=== PATIENT | female | born 1945 | race Two or more races ===

== ENCOUNTER 2020-03-27 11:27 | Outpatient (REF) | payer MEDICARE, SELFPAY ==
[2020-03-27 12:35] LABS: Alanine Aminotransferase 10 U/L (0-31); Albumin Level 4.5 g/dL (3.5-5.0); Alkaline Phosphatase 104 U/L (39-117); Anion Gap 12 (12-20); Aspartate Amino Transferase 15 U/L (5-31); Bilirubin Total 1.2 mg/dL (0.0-1.0); Blood Urea Nitrogen 14 mg/dL (9-16); Calcium 9.1 mg/dL (8.4-10.2); Carbon Dioxide 27 mmol/L (22-29); Chloride 106 mmol/L (96-108); Cholesterol 186 mg/dL; Estimated Glomerular Filt Rate > 60; Glucose Fasting 98 mg/dL (60-99); HDL Cholesterol 45 mg/dL; LDL Cholesterol Calculated 84 mg/dl; Potassium 4.5 mmol/l (3.3-5.1); Sodium 140 mmol/L (135-145); Total Protein 7.2 g/dL (6.5-8.0); Triglycerides 287 mg/dL
[2020-03-27 12:56] LABS: TSH reflex Free T4 1.31 mIU/mL (0.32-4.0)
== END 2020-03-27 11:28 | disposition home or self-care (01) ==
LOC: HO.LAB 11:27
PROVIDERS: PCP Internal Medicine; Visit Provider Internal Medicine
DX: E03.9 Hypothyroidism, unspecified (principal); E78.00 Pure hypercholesterolemia, unspecified
CPT/HCPCS: 80053; 80061; 84443

== ENCOUNTER 2020-05-02 12:32 | Outpatient (REF) | payer MEDICARE, SELFPAY ==
--- NOTE | 2020-05-02 12:35 | XR_ITS ---
EXAMINATION: CR X-RAY KNEE LEFT 2 VIEW, BILATERAL KNEE STANDING CLINICAL INFORMATION: Left knee pain. COMPARISON: 02/28/2020 left knee radiographs. . TECHNIQUE: PA and lateral views of the left knee as well as standing view of the bilateral knee FINDINGS: Mild medial femoral-tibial joint space narrowing is seen bilaterally. Minimal marginal osteophyte is seen at the left patellofemoral joint. A small curvilinear osseous density seen along the medial aspect of the left medial femoral condyle. There is no joint effusion. There is no acute fracture or dislocation. The soft tissues are unremarkable. XR/XR knee LT 2V IMPRESSION: 1. Mild degenerative joint changes suggesting osteoarthritis without acute abnormality.
--- NOTE | 2020-05-02 12:35 | XR_ITS ---
EXAMINATION: CR X-RAY KNEE LEFT 2 VIEW, BILATERAL KNEE STANDING CLINICAL INFORMATION: Left knee pain. COMPARISON: 02/28/2020 left knee radiographs. . TECHNIQUE: PA and lateral views of the left knee as well as standing view of the bilateral knee FINDINGS: Mild medial femoral-tibial joint space narrowing is seen bilaterally. Minimal marginal osteophyte is seen at the left patellofemoral joint. A small curvilinear osseous density seen along the medial aspect of the left medial femoral condyle. There is no joint effusion. There is no acute fracture or dislocation. The soft tissues are unremarkable. XR/XR knee standing BI IMPRESSION: 1. Mild degenerative joint changes suggesting osteoarthritis without acute abnormality.
== END 2020-05-02 12:33 | disposition home or self-care (01) ==
LOC: HO.HOSX 12:32
PROVIDERS: PCP Internal Medicine; Referring Provider Internal Medicine; Visit Provider Orthopaedic Surgery
DX: M25.562 Pain in left knee (principal)
CPT/HCPCS: 20610; 73560; 73565; 99202; J1100

== ENCOUNTER 2020-05-27 13:47 | Outpatient (REF) | payer MEDICARE, SELFPAY | END 2020-05-27 13:48 | disposition home or self-care (01) | LOC: HO.LAB 13:47 | PROVIDERS: Visit Provider Internal Medicine | DX: Z20.828 Contact with and (suspected) exposure to other viral communicable diseases (principal) | CPT/HCPCS: C9803; U0003 ==

== ENCOUNTER 2020-07-10 13:57 | Outpatient (REF) | payer MEDICARE, SELFPAY ==
--- NOTE | 2020-07-10 14:00 | MM_ITS ---
EXAMINATION: MM SCREENING DIGITAL BREAST TOMOSYNTHESIS, BILATERAL CLINICAL INFORMATION: Screening. Asymptomatic. The lifetime risk of breast cancer based on the Tyrer-Cuzick Model is 2%. COMPARISON: Mammography: 04/05/2019, 03/24/2018, 03/16/2017 TECHNIQUE: Digital breast tomosynthesis is performed in both the craniocaudal and mediolateral oblique views along with computer-aided detection (CAD). Synthesized 2D images are generated from the tomosynthesis. FINDINGS: There are scattered areas of fibroglandular density (ACR BI-RADS breast composition Category b). There are no significant masses, abnormal calcifications, or other abnormalities. Parenchymal pattern is similar to prior studies. No significant changes. MM/MM tomosynthesis screening BI IMPRESSION: No mammographic evidence of malignancy. ASSESSMENT: BI-RADS 1: Negative RECOMMENDATION: Routine annual mammography screening. This patient's information was entered into a reminder system with a target due date for their next mammogram.
== END 2020-07-10 13:58 | disposition home or self-care (01) ==
LOC: HO.MAMMO 13:57
PROVIDERS: PCP Internal Medicine; Visit Provider Internal Medicine
DX: Z12.31 Encounter for screening mammogram for malignant neoplasm of breast (principal)
CPT/HCPCS: 77063; 77067

== ENCOUNTER → 2020-07-31 11:03 | Outpatient (BNVA) | payer MEDICARE, SELFPAY | PROVIDERS: PCP Internal Medicine; Visit Provider Internal Medicine Gastroenterology | DX: Z76.89 Persons encountering health services in other specified circumstances (principal) | CPT/HCPCS: Q3014 ==

== ENCOUNTER 2020-08-26 12:58 | Outpatient (REF) | payer MEDICARE, SELFPAY ==
[2020-08-26 14:05] LABS: Alanine Aminotransferase 7 U/L (0-31); Albumin Level 4.4 g/dL (3.5-5.0); Alkaline Phosphatase 88 U/L (39-117); Anion Gap 12 (12-20); Aspartate Amino Transferase 16 U/L (5-31); Bilirubin Total 1.2 mg/dL (0.0-1.0); Blood Urea Nitrogen 15 mg/dL (9-16); Calcium 9.1 mg/dL (8.4-10.2); Carbon Dioxide 26 mmol/L (22-29); Chloride 107 mmol/L (96-108); Cholesterol 165 mg/dL; Estimated Glomerular Filt Rate 55; Glucose Fasting 99 mg/dL (60-99); HDL Cholesterol 51 mg/dL; LDL Cholesterol Calculated 85 mg/dl; Potassium 3.9 mmol/L (3.3-5.1); Sodium 141 mmol/L (135-145); Total Protein 6.9 g/dL (6.5-8.0); Triglycerides 145 mg/dL
[2020-08-26 14:26] LABS: TSH reflex Free T4 1.84 uIU/mL (0.32-4.0)
== END 2020-08-26 12:59 | disposition home or self-care (01) ==
LOC: HO.LAB 12:58
PROVIDERS: PCP Internal Medicine; Visit Provider Internal Medicine
DX: E78.2 Mixed hyperlipidemia (principal); E11.9 Type 2 diabetes mellitus without complications; E03.9 Hypothyroidism, unspecified
CPT/HCPCS: 36415; 80053; 80061; 84443

== ENCOUNTER 2020-09-15 11:06 | Outpatient (REF) | payer MEDICARE, SELFPAY ==
--- NOTE | ~2020-09-15 | US_ITS ---
EXAMINATION: US ABDOMEN COMPLETE CLINICAL INFORMATION: Upper abdominal pain. COMPARISON: CT abdomen pelvis 06/21/2019. TECHNIQUE: Real-time imaging of the abdominal viscera. FINDINGS: PANCREAS: The pancreatic head and body are unremarkable. The tail is obscured by gas. ABDOMINAL AORTA: The proximal, mid, and distal segments are normal in caliber. INFERIOR VENA CAVA: Visualized portions are normal. LIVER: The liver is normal in size. The liver contour is normal. There is diffuse mildly increased liver parenchymal echogenicity, consistent with hepatic steatosis. No focal hepatic lesion. There is no intrahepatic biliary duct dilatation seen. GALLBLADDER: Surgically absent. COMMON BILE DUCT: Prominent in caliber measuring 1.0 cm in diameter. This can be seen in the postcholecystectomy setting. RIGHT KIDNEY: Parapelvic cysts versus renal pelvic fullness. No hydronephrosis or renal calculi. The kidney measures 9.6 cm in maximum dimension. LEFT KIDNEY: Parapelvic cysts are present. No hydronephrosis or renal calculi. The kidney measures 9.7 cm in maximum dimension. SPLEEN: Normal. The spleen measures 9.4 cm in maximum dimension. FREE FLUID: None. US/US abdomen complete IMPRESSION: Mild hepatic steatosis. Parapelvic renal cysts.
== END 2020-09-15 11:07 | disposition home or self-care (01) ==
LOC: HO.US 11:06
PROVIDERS: Visit Provider Internal Medicine Gastroenterology
DX: R10.10 Upper abdominal pain, unspecified (principal); R14.0 Abdominal distension (gaseous)
CPT/HCPCS: 76700

== ENCOUNTER → 2020-09-19 12:05 | Outpatient (BNVA) | payer MEDICARE, SELFPAY | PROVIDERS: PCP Internal Medicine; Visit Provider Internal Medicine Gastroenterology | DX: Z13.89 Encounter for screening for other disorder (principal) | CPT/HCPCS: Q3014 ==

== ENCOUNTER 2021-01-07 11:03 | Outpatient (REF) | payer MEDICARE, SELFPAY ==
[2021-01-07 13:21] LABS: Alanine Aminotransferase 8 U/L (0-31); Albumin Level 4.4 g/dL (3.5-5.0); Alkaline Phosphatase 97 U/L (39-117); Anion Gap 13 (12-20); Aspartate Amino Transferase 18 U/L (5-31); Bilirubin Total 1.1 mg/dL (0.0-1.0); Blood Urea Nitrogen 16 mg/dL (9-16); Calcium 9.5 mg/dL (8.4-10.2); Carbon Dioxide 25 mmol/L (22-29); Chloride 106 mmol/L (96-108); Cholesterol 173 mg/dL; Estimated Glomerular Filt Rate 56; Glucose Fasting 93 mg/dL (60-99); HDL Cholesterol 54 mg/dL; LDL Cholesterol Calculated 94 mg/dl; Potassium 4.1 mmol/L (3.3-5.1); Sodium 140 mmol/L (135-145); Total Protein 7.1 g/dL (6.5-8.0); Triglycerides 128 mg/dL
[2021-01-07 13:43] LABS: Thyroid Stimulating Hormone 2.64 uIU/mL (0.32-4.0)
[2021-01-11 13:31] LABS: Levetiracetam Keppra <1.0 mcg/mL (12.0-46.0)
== END 2021-01-07 11:04 | disposition home or self-care (01) ==
LOC: HO.LAB 11:03
PROVIDERS: PCP Internal Medicine; Visit Provider Internal Medicine
DX: E03.9 Hypothyroidism, unspecified (principal); E78.2 Mixed hyperlipidemia; R56.9 Unspecified convulsions; E78.5 Hyperlipidemia, unspecified
CPT/HCPCS: 36415; 80053; 80061; 80177; 84443

== ENCOUNTER 2021-01-07 11:06 | Outpatient (REF) | payer MEDICARE, SELFPAY | END 2021-01-07 11:07 | disposition home or self-care (01) | LOC: HO.LAB 11:06 | PROVIDERS: PCP Internal Medicine; Visit Provider Internal Medicine | DX: Z20.822 Contact with and (suspected) exposure to COVID-19 (principal) | CPT/HCPCS: C9803; U0003; U0005 ==

== ENCOUNTER 2021-01-08 12:51 | Outpatient (REF) | payer MEDICARE, SELFPAY ==
--- NOTE | ~2021-01-08 | XR_ITS ---
EXAMINATION: XR CHEST CLINICAL INFORMATION: Cough COMPARISON: Previous chest x-agustin most recent June 2019 TECHNIQUE: 2 views of the chest were obtained. FINDINGS: The cardiac and mediastinal contours are normal. The lungs are clear. There is no pleural effusion or pneumothorax. There are degenerative changes of the spine and mild curvature to the right. XR/XR chest 2V IMPRESSION: No evidence for acute disease in the chest.
== END 2021-01-08 12:52 | disposition home or self-care (01) ==
LOC: HO.XRAY 12:51
PROVIDERS: PCP Internal Medicine; Visit Provider Nurse Practitioner Family
DX: R05 Cough (principal)
CPT/HCPCS: 71046

== ENCOUNTER → 2021-03-26 13:56 | Outpatient (BNVA) | payer MEDICARE, SELFPAY | PROVIDERS: PCP Internal Medicine; Visit Provider Internal Medicine Gastroenterology | DX: K21.9 Gastro-esophageal reflux disease without esophagitis (principal); K59.00 Constipation, unspecified; K76.0 Fatty (change of) liver, not elsewhere classified; R14.0 Abdominal distension (gaseous); R10.10 Upper abdominal pain, unspecified; I10 Essential (primary) hypertension; E78.5 Hyperlipidemia, unspecified; Z90.49 Acquired absence of other specified parts of digestive tract; Z88.6 Allergy status to analgesic agent; Z88.1 Allergy status to other antibiotic agents; Z88.2 Allergy status to sulfonamides; Z88.8 Allergy status to other drugs, medicaments and biological substances; Z79.899 Other long term (current) drug therapy | CPT/HCPCS: Q3014 ==

== ENCOUNTER 2021-05-25 09:53 | Outpatient (REF) | payer MEDICARE, SELFPAY ==
[2021-05-25 10:12] LABS: MANUAL DIFF FLAG NO
[2021-05-25 10:39] LABS: Basophils Percent Auto 0.6 % (0-2); Eosinophils Absolute Auto 0.2 X10*3/uL (0.0-0.4); Eosinophils Percent Auto 2.1 % (0-4); Hematocrit 36.1 % (37.0-47.0); Hemoglobin 11.6 g/dl (12.0-16.0); Imm Gran Abs Auto 0.01 X10*3/uL (0.00-0.03); Imm Gran Pct Auto 0.1 % (0.0-0.4); Lymphocytes Absolute Auto 2.7 X10*3/uL (1.2-4.9); Lymphocytes Percent Auto 38.3 % (20-40); Mean Corpuscular HGB Conc 32.1 g/dl (31.0-35.0); Mean Corpuscular Hemoglobin 30.1 pg (27.0-33.0); Mean Corpuscular Volume 93.5 fL (80.0-98.0); Mean Platelet Volume 13.5 fL (9.4-12.3); Monocytes Absolute Auto 0.4 X10*3/uL (0.1-1.2); Monocytes Percent Auto 5.7 % (2-11); Neutrophils Absolute Auto 3.8 x10*3/uL (2.0-8.3); Neutrophils Percent Auto 53.2 % (45-73); Platelet Count 157 X10*3/uL (160-400); Red Blood Count 3.86 X10*6/uL (4.20-5.50); Red Cell Distribution Width 12.9 % (11.0-16.0); White Blood Count 7.1 X10*3/uL (4.8-10.8)
[2021-05-25 10:43] LABS: INTERNATIONAL NORM RATIO 1.1 (0.9-1.1); Prothrombin Time 12.1 SEC (9.9-13.0)
[2021-05-25 11:02] LABS: Alanine Aminotransferase 11 U/L (0-31); Albumin Level 4.3 g/dL (3.5-5.0); Alkaline Phosphatase 79 U/L (39-117); Anion Gap 14 (12-20); Aspartate Amino Transferase 18 U/L (5-31); Bilirubin Total 0.7 mg/dL (0.0-1.0); Blood Urea Nitrogen 20 mg/dL (9-16); Calcium 9.5 mg/dL (8.4-10.2); Carbon Dioxide 22 mmol/L (22-29); Chloride 109 mmol/L (96-108); Cholesterol 170 mg/dL; Estimated Glomerular Filt Rate 49; Glucose Fasting 101 mg/dL (60-99); HDL Cholesterol 54 mg/dL; LDL Cholesterol Calculated 94 mg/dl; Potassium 4.2 mmol/L (3.3-5.1); Sodium 141 mmol/L (135-145); Triglycerides 114 mg/dL
[2021-05-25 11:25] LABS: Thyroid Stimulating Hormone 1.28 uIU/mL (0.32-4.0)
[2021-05-29 17:50] LABS: FIB-ALT 9 U/L (6-29); FIB-Alpha-2-Macroglobulin 171 mg/dL (106-279); FIB-Apolipoprotein A1 171 mg/dL (101-198); FIB-GGT 19 U/L (3-65); FIB-Haptoglobin 141 mg/dL (43-212); FIB-Total Bilirubin 0.7 mg/dL (0.2-1.2); Liver Fibrosis Stage F0; Nec Inflam Act Grade A0; Nec Inflam Act Score 0.02
== END 2021-05-25 09:54 | disposition home or self-care (01) ==
LOC: HO.LAB 09:53
PROVIDERS: Absent Provider Internal Medicine Gastroenterology; PCP Internal Medicine; Visit Provider Internal Medicine
DX: E78.2 Mixed hyperlipidemia (principal); E78.5 Hyperlipidemia, unspecified; E03.9 Hypothyroidism, unspecified; K76.0 Fatty (change of) liver, not elsewhere classified
CPT/HCPCS: 36415; 80053; 80061; 81596; 84443; 85025; 85610

== ENCOUNTER → 2021-06-04 12:40 | Outpatient (BNV) | payer MEDICARE, OTHER, SELFPAY | PROVIDERS: PCP Internal Medicine; Referring Provider Internal Medicine; Visit Provider Internal Medicine Medical Oncology | DX: D64.9 Anemia, unspecified (principal) | CPT/HCPCS: 99203; 99213 ==

== ENCOUNTER 2021-08-06 09:37 | Outpatient (REF) | payer MEDICARE, SELFPAY ==
--- NOTE | ~2021-08-06 | MM_ITS ---
EXAMINATION: MM SCREENING DIGITAL BREAST TOMOSYNTHESIS, BILATERAL CLINICAL INFORMATION: Screening. Asymptomatic. The lifetime risk of breast cancer based on the Tyrer-Cuzick Model is 1.8%. COMPARISON: Mammography: July 10, 2020 and studies dating back to January 09, 2014 TECHNIQUE: Digital breast tomosynthesis is performed in both the craniocaudal and mediolateral oblique views along with computer-aided detection (CAD). Synthesized 2D images are generated from the tomosynthesis. FINDINGS: There are scattered areas of fibroglandular density (ACR BI-RADS breast composition Category b). There are no significant masses, abnormal calcifications, or other abnormalities. MM/MM tomosynthesis screening BI IMPRESSION: There are no significant changes from prior study. ASSESSMENT: BI-RADS 1: Negative RECOMMENDATION: Routine annual mammography screening. This patient's information was entered into a reminder system with a target due date for their next mammogram.
== END 2021-08-06 09:38 | disposition home or self-care (01) ==
LOC: HO.MAMMO 09:37
PROVIDERS: PCP Internal Medicine; Visit Provider Internal Medicine
DX: Z12.31 Encounter for screening mammogram for malignant neoplasm of breast (principal)
CPT/HCPCS: 77063; 77067

== ENCOUNTER 2021-09-23 09:18 | Outpatient (REF) | payer OTHER, SELFPAY ==
[2021-09-23 09:41] LABS: MANUAL DIFF FLAG NO
[2021-09-23 10:47] LABS: Basophils Percent Auto 0.5 % (0-2); Eosinophils Absolute Auto 0.1 X10*3/uL (0.0-0.4); Eosinophils Percent Auto 1.3 % (0-4); Hematocrit 36.3 % (37.0-47.0); Hemoglobin 11.4 g/dl (12.0-16.0); Imm Gran Abs Auto 0.02 X10*3/uL (0.00-0.03); Imm Gran Pct Auto 0.3 % (0.0-0.4); Lymphocytes Absolute Auto 2.6 X10*3/uL (1.2-4.9); Lymphocytes Percent Auto 43.1 % (20-40); Mean Corpuscular HGB Conc 31.4 g/dl (31.0-35.0); Mean Corpuscular Hemoglobin 29.5 pg (27.0-33.0); Mean Corpuscular Volume 93.8 fL (80.0-98.0); Mean Platelet Volume 13.6 fL (9.4-12.3); Monocytes Absolute Auto 0.4 X10*3/uL (0.1-1.2); Monocytes Percent Auto 6.6 % (2-11); Neutrophils Absolute Auto 2.9 x10*3/uL (2.0-8.3); Neutrophils Percent Auto 48.2 % (45-73); Platelet Count 157 X10*3/uL (160-400); Red Blood Count 3.87 X10*6/uL (4.20-5.50); White Blood Count 6.1 X10*3/uL (4.8-10.8)
[2021-09-23 11:10] LABS: Alanine Aminotransferase 7 U/L (0-31); Albumin Level 4.1 g/dL (3.5-5.0); Alkaline Phosphatase 80 U/L (39-117); Anion Gap 11 (12-20); Aspartate Amino Transferase 14 U/L (5-31); Bilirubin Total 0.9 mg/dL (0.0-1.0); Blood Urea Nitrogen 16 mg/dL (9-16); Calcium 9.6 mg/dL (8.4-10.2); Carbon Dioxide 26 mmol/L (22-29); Chloride 108 mmol/L (96-108); Cholesterol 147 mg/dL; Estimated Glomerular Filt Rate > 60; Glucose Fasting 94 mg/dL (60-99); HDL Cholesterol 46 mg/dL; LDL Cholesterol Calculated 78 mg/dl; Potassium 4.4 mmol/L (3.3-5.1); Sodium 141 mmol/L (135-145); Total Protein 6.6 g/dL (6.5-8.0); Triglycerides 115 mg/dL
[2021-09-23 11:35] LABS: TSH reflex Free T4 (Prenatal) 1.42 uIU/mL (0.32-4.0)
[2021-09-23 11:53] LABS: Folate > 20.0 ng/mL (> or = 4.0); Vitamin B12 416 pg/mL (200-900)
[2021-09-28 05:46] LABS: Vitamin D 25-OH, D2 <4 ng/mL; Vitamin D 25-OH, D3 33 ng/mL; Vitamin D 25-OH, Total 33 ng/mL (30-100)
== END 2021-09-23 09:19 | disposition home or self-care (01) ==
LOC: HO.LAB 09:18
PROVIDERS: PCP Internal Medicine; Visit Provider Internal Medicine
DX: I10 Essential (primary) hypertension (principal); E03.9 Hypothyroidism, unspecified; E78.5 Hyperlipidemia, unspecified; D64.9 Anemia, unspecified; E55.9 Vitamin D deficiency, unspecified; R20.0 Anesthesia of skin; R20.2 Paresthesia of skin
CPT/HCPCS: 36415; 80053; 80061; 82306; 82607; 82746; 85025

== ENCOUNTER 2021-10-08 13:38 | Outpatient (REF) | payer OTHER, SELFPAY ==
--- NOTE | ~2021-10-08 | MM_ITS ---
EXAMINATION: BONE DENSITOMETRY CLINICAL INDICATION: Asymptomatic menopausal state. COMPARISON: Previous BD dated 04/26/2014 and baseline BD dated 07/08/2008. TECHNIQUE: Using a [employer] DXA System (software version: 13.1) manufactured by [employer], dual-energy x-ray absorptiometry was performed of the lumbar spine and left hip. The images are of good technical quality. Summary results are attached. FINDINGS: AP SPINE L1-L4: Current: BMD 1.236 g/cm2, Z-score 2.0, T-score 0.5, normal, 2.9% increase from previous, 5.6% increase from baseline (<5% change is not significant). Prior: BMD 1.201 g/cm2. Baseline: BMD 1.170 g/cm2. LEFT FEMUR, NECK: Current: BMD 0.952 g/cm2, Z-score 1.2, T-score -0.6, normal. Prior: BMD 1.022 g/cm2. Baseline: BMD 1.129 g/cm2. LEFT FEMUR, TOTAL: Current: BMD 1.197 g/cm2, Z-score 3.2, T-score 1.5, normal, 3.7% decrease from previous, 5.5% decrease from baseline (<5% change is not significant). Prior: BMD 1.243 g/cm2. Baseline: BMD 1.267 g/cm2. IDENTIFIED RISK FACTORS: Osteoporosis. Early menopause, secondary osteoporosis, hysterectomy, bilateral oophorectomy. HISTORY OF FRACTURE: None listed. MEDICATIONS: None listed. MM/XR DEXA axial skeleton IMPRESSION: 1. DIAGNOSIS: Normal bone density based on the lowest T-score value of -0.6 in the femoral neck applying World Health Organization criteria. 2. 10-YEAR FRACTURE RISK PREDICTION, FRAX: According to the guidelines, FRAX calculation should only be performed on patients in the osteopenia bone density category. Therefore, FRAX was not performed on this patient. 3. Treatment Recommendations: NOF guidelines recommend consideration for treatment in postmenopausal women and men age 50 and older presenting with the following: -A hip or vertebral (clinical or morphometric) fracture. -T-score less than or equal to -2.5 at the femoral neck or spine after appropriate evaluation to exclude secondary causes. -Low bone mass at the hip or spine and a 10-year fracture probability by FRAX of greater than or equal to 3% for hip fracture or greater than or equal to 20% for major osteoporotic fracture based on the [place] adapted WHO algorithm. 4. Other Recommendations: All treatment decisions require clinical judgment and consideration of individual patient factors, including patient preferences, comorbidities, previous drug use, risk factors not captured in the FRAX model (e.g. frailty, falls, vitamin D deficiency, increased bone turnover, interval significant decline in bone density) and possible under or overestimation of fracture risk by FRAX. FUTURE SCAN RECOMMENDATION: People with diagnosed cases of osteoporosis or at high risk for fracture should have regular bone mineral density tests. For patients eligible for Medicare, routine testing is allowed once every 2 years. The testing frequency can be increased to one year for patients who have rapidly progressing disease, those who are receiving or discontinuing medical therapy to restore bone mass, or have additional risk factors.
== END 2021-10-08 13:39 | disposition home or self-care (01) ==
LOC: HO.MAMMO 13:38
PROVIDERS: Visit Provider Internal Medicine
DX: Z13.820 Encounter for screening for osteoporosis (principal); Z78.0 Asymptomatic menopausal state; K21.9 Gastro-esophageal reflux disease without esophagitis; K76.0 Fatty (change of) liver, not elsewhere classified; K59.09 Other constipation; R14.0 Abdominal distension (gaseous); R10.10 Upper abdominal pain, unspecified
CPT/HCPCS: 77080; 99212

== ENCOUNTER 2022-03-22 09:37 | Outpatient (REF) | payer OTHER, SELFPAY ==
[2022-03-22 10:31] LABS: Alanine Aminotransferase 9 U/L (0-31); Albumin Level 4.4 g/dL (3.5-5.0); Alkaline Phosphatase 84 U/L (39-117); Anion Gap 13 (12-20); Aspartate Amino Transferase 16 U/L (5-31); Blood Urea Nitrogen 21 mg/dL (9-16); Calcium 9.3 mg/dL (8.4-10.2); Carbon Dioxide 24 mmol/L (22-29); Chloride 107 mmol/L (96-108); Cholesterol 179 mg/dL; Estimated Glomerular Filt Rate > 60; Glucose Fasting 101 mg/dL (60-99); HDL Cholesterol 55 mg/dL; LDL Cholesterol Calculated 94 mg/dl; Potassium 4.3 mmol/L (3.3-5.1); Sodium 140 mmol/L (135-145); Triglycerides 154 mg/dL
[2022-03-22 10:51] LABS: Thyroid Stimulating Hormone 1.37 uIU/mL (0.32-4.0)
== END 2022-03-22 09:38 | disposition home or self-care (01) ==
LOC: HO.LAB 09:37
PROVIDERS: PCP Internal Medicine; Visit Provider Internal Medicine
DX: R20.0 Anesthesia of skin (principal); R20.2 Paresthesia of skin; E03.9 Hypothyroidism, unspecified; E78.5 Hyperlipidemia, unspecified
CPT/HCPCS: 36415; 80053; 80061; 84443

== ENCOUNTER 2022-04-08 11:38 | Outpatient (AMB) | payer OTHER, SELFPAY ==
--- NOTE | 2022-04-08 11:40 | A.OFFVIS_ITS ---
Intake Intake Visit Reasons: 6 mnth f/u FU of GERD and fatty liver Intake Note: Patient follow up for GERD and fatty liver. Patient cc: acid reflex on and off, denies any other GI issues. 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 Research Scientist Required: Yes Allergies clarithromycin [CLARITHROMYCIN] Allergy (Intermediate, Verified 03/29/23 11:15) Rash hydrochlorothiazide [HYDROCHLOROTHIAZIDE] Allergy (Intermediate, Verified 03/29/23 11:15) Rash Sulfa (Sulfonamide Antibiotics) Allergy (Intermediate, Verified 03/29/23 11:15) Rash tramadol [TRAMADOL] Allergy (Intermediate, Verified 03/29/23 11:15) Rash, vomiting moexipril [From Univasc] Allergy (Mild, Verified 03/29/23 11:15) lip deviation valsartan [From Diovan] Allergy (Mild, Verified 03/29/23 11:15) Rash acetaminophen [From Vicodin] Adverse Reaction (Intermediate, Verified 03/29/23 11:15) Vomiting hydrocodone [From Vicodin] Adverse Reaction (Intermediate, Verified 03/29/23 11:15) Vomiting oxycodone [From Percocet] Adverse Reaction (Mild, Verified 03/29/23 11:15) vomiting Medication List - Last Reconciled 04/08/22 by Nazia Vásquez MD acetaminophen 500 mg PO Q6H PRN 30 days atorvastatin 10 mg PO DAILY fenofibrate 54 mg PO DAILY fluticasone propionate 50 mcg/actuation 1 spray intranasal BID 30 days levothyroxine 50 mcg PO DAILY 90 days losartan 100 mg PO DAILY pantoprazole 40 mg PO DAILY 90 days polyethylene glycol 3350 17 grams PO DAILY verapamil ER 240 mg PO DAILY 90 days HPI 6 mnth f/u FU of GERD and fatty liver HPI Details TELEMEDICINE VISIT FOR THIS 76-YEAR-OLD SYRIAC-SPEAKING FEMALE FOR FOLLOW-UP OF EPIGASTRIC PAIN. PMX:?Arthritis, Hypertension, Hyperlipidemia, Heart problems, Diverticulosis, Gastritis, thyroid disease ? SURGICAL HISTORY: ATILIO with BSO, cholecystectomy lap ?[facility] LABS:?07/08/19 REVIEWED NORMAL CBC WITH PLATELET COUNT OF 137, INR OF 1, ? NORMAL LFTS MILD INCREASE IN BILIRUBIN OF 1.4 ? VITAMIN B12 WAS 168 AND 2012. ?IMAGING STUDIES: 09/15/20 ABDOMINAL ULTRASOUND SHOWED:? LIVER: The liver is normal in size. The liver contour is normal. There is diffuse mildly increased liver parenchymal echogenicity, consistent with hepatic steatosis.? No focal hepatic lesion. There is no intrahepatic biliary duct dilatation seen. GALLBLADDER: Surgically absent. COMMON BILE DUCT: Prominent in caliber measuring 1.0 cm in diameter. This can be seen in the postcholecystectomy setting. RIGHT KIDNEY: Parapelvic cysts versus renal pelvic fullness. No hydronephrosis or renal calculi. The kidney measures 9.6 cm in maximum dimension. LEFT KIDNEY: Parapelvic cysts are present. No hydronephrosis or renal calculi. The kidney measures 9.7 cm in maximum dimension. SPLEEN: Normal. The spleen measures 9.4 cm in maximum dimension. ?06/22/[address] SCAN SHOWED: ? IMPRESSION: ? Diverticulosis. No evidence of diverticulitis. Bilateral renal peripelvic cysts ?05/01 UGI SHOWED: ? There is a small hiatal hernia with moderate gastroesophageal reflux into the upper esophagus. ? Otherwise, the course, caliber and peristalsis of stomach, duodenal ? bulb and the sweep is normal. The mucosal pattern of stomach, duodenal ? bulb and CBD is normal except for a small round filling defect in the ? third segment duodenum on several last images.. Question prominent ? Eboni's gland, mass or polyp. Incidental note is made of previous cholecystectomy. ?ENDOSCOPIC STUDIES: 09/07/19 EGD AND COLONOSCOPY SHOWED: ? ESOPHAGUS: Small hiatus hernia and focal mild esophagitis ? STOMACH: Gastritis and gastric polyps ? Colonoscopy Findings: ? No polyps were detected ? Moderate to severe diverticulosis seen in the left colon ? Small hemorrhoids on retroflexed exam. ? Plan: ? Await pathology results ? Continue present medications ? Repeat Colonoscopy in 10 years if pt remains in stable health. ? Above findings were reviewed with the patient and GERD and diverticulosis handouts ? were provided. ? A. Small bowel, biopsy: Small intestinal mucosa within normal limits. ? B. Stomach, biopsy: Antral-type mucosa with moderate chronic inactive inflammation; no ? Helicobacter organisms seen. ? C. Stomach polyp: Fundic gland polyp with background mild chronic inactive inflammation; no Helicobacter organisms seen. ?TODAY'S VISIT ?TELEPHONE EMERGENCY VEHICLE DISPATCHERDi # [id number] Patient follow up for GERD and fatty liver. Patient cc: acid reflex on and off, denies any other GI issues. Lab results were reviewed with the patient. Denies abdominal pain or heartburn. ?PAST VISIT: Abd US results were reviewed with the patient. ? Denies any abd pain at present. Had abdominal pain a week ago after eating a buffet - took TUMS and pain went away. ?Abd pain is much better and sometimes she gets it and sometimes she does not. ? Can be once a week to once a month and can last all day or a few hrs. ? Notes a little bit of heartburn - 2-3 times a week - sometimes day or night. ? Avoids spicy foods. ? Constipation improved with medications - Senna with colace. ? EGD and Colonoscopy and bx results were reviewed with the patient. ? Continues to have pain in her throat. ? Called her PCP and was prescribed PCN and the sore throat is getting better. ? Taking Senna three times a week alternating with Miralax and continuing to have constipation - advised to take Senna daily and take Miralax every other day. ? Pain is intermittent 8/10 in intensity and feels like a pressure. ? Pain radiates to the back and lower extremities. ? Pain is constant and varies in intensity. ? Unable to identify any precipitating factors. ? Thinks its her thyroid medication which is causing the pain. ? Pain gets a little better after a BM or passing gas. ? Notes chills and denies fever, ? Complains of decreased appetite and weight loss of 7 lbs since 03/01. ? Has been eating less and notes heartburn, early satiety, nausea and occasional vomiting, gas and bloating. ? Vomiting can be bilious. ? Denies dysphagia. ? Patient denies change in bowel habits, black stools or rectal bleeding. ? Chronic constipation and has a BM every other day if she takes medication for constipation ? Denies past problems with anesthesia or sleep apnea. ? Snores loudly. ? Denies major heart or lung problems ? Denies use of NSAIDS or blood thinners. STOPPED TAKING PLAVIX A YEAR AGO ? FAMILY HISTORY: Denies known FH of colon polyps, colon cancer or GI? PFSH Medical History Cataracts, bilateral Chronic GERD Postmenopausal Numbness and tingling Anemia Productive cough Polyarthralgia Mixed hyperlipidemia Vertigo Essential hypertension Hypothyroidism Right hip pain Left hip pain Hypertension Chronic pain Surgical History Hx of eye surgery Status post laser ablation of incompetent vein History of esophagogastroduodenoscopy (EGD) Hx of colonoscopy History of total abdominal hysterectomy and bilateral salpingo-oophorectomy History of cholecystectomy Family History Father Alzheimer disease Mother Stroke Other No family history of cancer Social History Household Members: None Housing: Apartment Are you a primary career developer to a significant other at home: No Do you presently have visiting nurse or other home services: No Alcohol intake: never Patient Tobacco Use Status: Never used Tobacco e-Cigarette/Vaping Use: Never Used Second Hand Smoke Exposure: No service: No Current occupational status: retired Cognitive needs: No Hearing needs: No Vision needs: Yes Review of Systems Const All systems reviewed & are unremarkable except as noted in HPI and below Assessment & Plan Assessment & Plan (1) Chronic GERD: Code(s): K21.9 - Gastro-esophageal reflux disease without esophagitis (2) Anemia: Code(s): D64.9 - Anemia, unspecified (3) NAFL (nonalcoholic fatty liver): Code(s): K76.0 - Fatty (change of) liver, not elsewhere classified (4) Colon cancer screening: Comment: 08/2019 No polyps were detected on colonoscopy. Repeat Colonoscopy can be considered in 10 years if patient remains in stable he alth. Code(s): Z12.11 - Encounter for screening for malignant neoplasm of colon (5) Abdominal bloating: Code(s): R14.0 - Abdominal distension (gaseous) (6) Chronic constipation: Comment: Continue Miralax prn Code(s): K59.09 - Other constipation (7) Upper abdominal pain: Code(s): R10.10 - Upper abdominal pain, unspecified Plan 76 year old Vietnamese-speaking female with Arthritis, Hypertension, Hyperlipidemia, Heart problems, Diverticulosis, Gastritis seen for evaluation of abdominal pain with bloating and chronic constipation. Upper GI showed mild reflux and a small round filling defect in the third segment duodenum on several last images raising concern for a polyp, mass or prominent Eboni's gland. Patient was advised to start famotidine for GERD and abdominal pain and use senna for constipation. 08/30 EGD showed a small hiatal hernia with focal esophagitis, gastritis and multiple hyperplastic gastric polyps. No nodule or polyp was visualized in the duodenum. 09/2020 Abd US showed?mild hepatic steatosis and parapelvic renal cysts?(she is > 20 yrs status post lap cathleen). Pt was advised to schedule a follow-up appointment in 5 months (for FU of GERD, fatty liver, abdominal pain and constipation) Orders: Orders Liver Fibrosis Pnl 3 Months K76.0 - Fatty (change of) liver, not elsewhere classified Complete Blood Count no Diff 3 Months K76.0 - Fatty (change of) liver, not elsewhere classified Prothrombin Time INR 3 Months K76.0 - Fatty (change of) liver, not elsewhere classified Telehealth Telehealth Location of provider rendering services: practice address Location of patient: address on file Patient Identification confirmed using: Name, : Yes Telehealth method: voice only Patient verbally consented to treatment: Yes Patient verbally consented to billing insurance company: Yes Patient informed of any privacy concerns related to visit: Yes Minutes spent on Phone/Video with Pt.: 10 Coding Level of Care Code Tele Est Pt Level 3 (76356) Diagnoses Chronic GERD K21.9 Anemia D64.9 NAFL (nonalcoholic fatty liver) K76.0 Colon cancer screening Z12.11 Abdominal bloating R14.0 Chronic constipation K59.09 Upper abdominal pain R10.10 Time Spent (min) 10
== END 2022-04-08 14:15 | disposition home or self-care (01) ==
LOC: HO.HGI 11:38
PROVIDERS: PCP Internal Medicine; Visit Provider Internal Medicine Gastroenterology
DX: K21.9 Gastro-esophageal reflux disease without esophagitis (principal); D64.9 Anemia, unspecified; K76.0 Fatty (change of) liver, not elsewhere classified; Z12.11 Encounter for screening for malignant neoplasm of colon; R14.0 Abdominal distension (gaseous); K59.09 Other constipation; R10.10 Upper abdominal pain, unspecified
CPT/HCPCS: 99441

== ENCOUNTER 2022-08-09 09:41 | Outpatient (REF) | payer OTHER, SELFPAY ==
--- NOTE | ~2022-08-09 | MM_ITS ---
EXAMINATION: MM SCREENING DIGITAL BREAST TOMOSYNTHESIS, BILATERAL CLINICAL INFORMATION: Screening. Asymptomatic. The lifetime risk of breast cancer based on the Tyrer-Cuzick Model is 1.2%. COMPARISON: Mammography: August 06, 2021 and studies dating back to March 03, 2016 TECHNIQUE: Digital breast tomosynthesis is performed in both the craniocaudal and mediolateral oblique views along with computer-aided detection (CAD). Synthesized 2D images are generated from the tomosynthesis. FINDINGS: There are scattered areas of fibroglandular density (ACR BI-RADS breast composition Category b). There are no significant masses, abnormal calcifications, or other abnormalities. MM/MM tomosynthesis screening BI IMPRESSION: No significant changes from prior exam. ASSESSMENT: BI-RADS 1: Negative RECOMMENDATION: Routine annual mammography screening. This patient's information was entered into a reminder system with a target due date for their next mammogram.
== END 2022-08-09 09:42 | disposition home or self-care (01) ==
LOC: HO.MAMMO 09:41
PROVIDERS: Visit Provider Internal Medicine
DX: Z12.31 Encounter for screening mammogram for malignant neoplasm of breast (principal)
CPT/HCPCS: 77063; 77067

== ENCOUNTER 2022-10-08 09:05 | Outpatient (REF) | payer OTHER, SELFPAY ==
--- NOTE | 2022-10-08 09:19 | ECG_ITS ---
Test Reason : htn Blood Pressure : / mmHG Vent. Rate : 061 BPM Atrial Rate : 061 BPM P-R Int : 150 ms QRS Dur : 090 ms QT Int : 430 ms P-R-T Axes : 019 -03 034 degrees QTc Int : 432 ms Normal sinus rhythm with sinus arrhythmia Normal ECG When compared with ECG of 08-JUL-2019 10:46, No significant change was found Referred By: Hayde Marvin Electronically Signed By:Flynn Watkins
[2022-10-08 11:07] LABS: Alanine Aminotransferase 12 U/L (0-31); Albumin Level 4.1 g/dL (3.5-5.0); Alkaline Phosphatase 84 U/L (39-117); Anion Gap 12 (12-20); Aspartate Amino Transferase 19 U/L (5-31); Bilirubin Total 0.7 mg/dL (0.0-1.0); Blood Urea Nitrogen 21 mg/dL (9-16); Calcium 9.1 mg/dL (8.4-10.2); Carbon Dioxide 26 mmol/L (22-29); Chloride 106 mmol/L (96-108); Cholesterol 178 mg/dL; Estimated Glomerular Filt Rate 60; Glucose Fasting 97 mg/dL (60-99); HDL Cholesterol 50 mg/dL; Potassium 4.3 mmol/L (3.3-5.1); Sodium 140 mmol/L (135-145); Total Protein 6.6 g/dL (6.5-8.0)
[2022-10-08 11:30] LABS: Thyroid Stimulating Hormone 2.69 uIU/mL (0.32-4.0)
[2022-10-13 16:20] LABS: LDL Cholesterol Calculated 82 mg/dl; Triglycerides 232 mg/dL
== END 2022-10-08 09:06 | disposition home or self-care (01) ==
LOC: HO.LAB 09:05
PROVIDERS: PCP Internal Medicine; Visit Provider Internal Medicine
DX: E78.5 Hyperlipidemia, unspecified (principal); K76.0 Fatty (change of) liver, not elsewhere classified; E03.9 Hypothyroidism, unspecified; I10 Essential (primary) hypertension
CPT/HCPCS: 36415; 80053; 80061; 84443; 93005

== ENCOUNTER 2022-10-18 09:30 | Day surgery (SDC) | payer OTHER, SELFPAY ==
[2022-10-11 13:35] VITALS: BMI 33.7
--- NOTE | 2022-10-15 08:51 | MHC.SHP ---
Pre-Procedural Eval Section A Date of Service: 10/15/22 The patient is an INPATIENT: No Changes since office visit: No Cold of Flu in the past 2 weeks, No New Medical Problems, No Changes in Medication and No Patient answered all questions The History & Physical has been completed within 30 days and I have reviewed it.: Yes Section B Chief Complaint: Age-related nuclear cataract, right eye Allergies: Allergies Allergy/AdvReac Type Severity Reaction Status Date / Time acetaminophen [From Vicodin] Allergy Intermediate Vomiting Verified 10/07/22 15:12 clarithromycin Allergy Intermediate RASH Verified 10/07/22 15:12 [CLARITHROMYCIN] hydrochlorothiazide Allergy Intermediate RASH Verified 10/07/22 15:12 [HYDROCHLOROTHIAZIDE] hydrocodone [From Vicodin] Allergy Intermediate Vomiting Verified 10/07/22 15:12 Sulfa (Sulfonamide Allergy Intermediate rash Verified 10/07/22 15:12 Antibiotics) tramadol [TRAMADOL] Allergy Intermediate RASH, Verified 10/07/22 15:12 vomiting moexipril [From Univasc] Allergy Mild lip Verified 10/07/22 15:12 deviation oxycodone [From Percocet] Allergy Mild vomiting Verified 10/07/22 15:12 valsartan [From Diovan] Allergy Mild RASH Verified 10/07/22 15:12 Plan Diagnosis/Plan: Unchanged I have reviewed the history and physical and performed a pertinent physical examination on my patient. No changes have occurred unless specified. Time Spent With Patient Time: Total time managing care of this patient today ____ minutes.
--- NOTE | 2022-10-18 10:36 | HO.ANESPROP2 ---
[facility] Active Problems Active Problems: All Active Problems (Updated 10/07/22 @ 16:18 by Hayde Marvin MD) Pre-op evaluation (Acute) Chronic GERD (Acute) Postmenopausal (Acute) Numbness and tingling (Acute) Normochromic normocytic anemia (Acute) Anemia (Acute) NAFL (nonalcoholic fatty liver) (Acute) Productive cough (Acute) Colon cancer screening (Acute) Abdominal bloating (Acute) Chronic constipation (Acute) Upper abdominal pain (Acute) Hypothyroidism (Acute) Polyarthralgia (Acute) Mixed hyperlipidemia (Acute) Vertigo (Acute) Essential hypertension (Acute) Left knee pain (Acute) Past Medical History Medical History Anemia Chronic GERD Chronic pain Essential hypertension Hypertension Hypothyroidism Left hip pain Mixed hyperlipidemia Numbness and tingling Polyarthralgia Postmenopausal Productive cough Right hip pain Vertigo Family History Family History Father Alzheimer disease Mother Stroke Other No family history of cancer Surgical History Surgical History History of cholecystectomy History of esophagogastroduodenoscopy (EGD) History of total abdominal hysterectomy and bilateral salpingo-oophorectomy Hx of colonoscopy Status post laser ablation of incompetent vein History of Problems with Anesthesia: No Social History Social History Household Members: None Housing: Apartment Are you a primary health care / medical job titles to a significant other at home: No Do you presently have visiting nurse or other home services: No Alcohol intake: never Patient Tobacco Use Status: Never used Tobacco e-Cigarette/Vaping Use: Never Used Second Hand Smoke Exposure: No Use of substances other than those prescribed or required for medical reasons: No Have you been hit, kicked, punched, or otherwise hurt by someone within the past year? If so, by whom?: No Advance Directives: No (daughter Clarita is primary contact) Advance Directives Information Provided: Yes (brochure mailed) Advance Directives on File: No Recently lost weight without trying: No Eating poorly because of decreased appetite: No Nutrition Risks: Surgical patient >75years service: No Current occupational status: retired Cognitive needs: No Hearing needs: No Vision needs: Yes Meds Allergies Allergy/AdvReac Type Severity Reaction Status Date / Time acetaminophen [From Vicodin] Allergy Intermediate Vomiting Verified 10/07/22 15:12 clarithromycin Allergy Intermediate RASH Verified 10/07/22 15:12 [CLARITHROMYCIN] hydrochlorothiazide Allergy Intermediate RASH Verified 10/07/22 15:12 [HYDROCHLOROTHIAZIDE] hydrocodone [From Vicodin] Allergy Intermediate Vomiting Verified 10/07/22 15:12 Sulfa (Sulfonamide Allergy Intermediate rash Verified 10/07/22 15:12 Antibiotics) tramadol [TRAMADOL] Allergy Intermediate RASH, Verified 10/07/22 15:12 vomiting moexipril [From Univasc] Allergy Mild lip Verified 10/07/22 15:12 deviation oxycodone [From Percocet] Allergy Mild vomiting Verified 10/07/22 15:12 valsartan [From Diovan] Allergy Mild RASH Verified 10/07/22 15:12 Home Medications Medication Instructions Recorded Confirmed Last Taken Type multivitamin-ferrous 1 tab PO DAILY 05/17/22 10/11/22 Unknown History fumarate-folic acid 18 mg-400 mcg tablet (Centrum) Exam Exam Date and Time: October 18, 2022 1036 Height,Weight and Vital Signs: Height 4 ft 11 in Weight 75.75 kg Airway Mallampati Class: II (edentulous) TM Dist: >3cm Neck ROM: Full Denture: Upper Partial: Upper Loose/Missing/Broken Teeth: Yes, Upper and Lower Heart: RRR Lungs: CTA Assessment and Plan Final Anesthetic Review History of Problems with Anesthesia: No NPO: Yes ASA Class: II Final Preanesthetic Review: Meds/Allgs Chart Reviewed, Consent Obtained/Reviewed and Anes Risks/Benef Reviewed Patient Risk: Low Procedure Risk: Low Anesthetic Plan Anesthetic Plan: MAC: Disposition: Standard PACU
[2022-10-18] MEDS: Phenylephrine HCL 2.5% Oph SoL 2 ML BOTTLE 1 DROP EYE-RIGHT ×3 (10:45→11:02)
[2022-10-18] MEDS: Tetracaine HCl/PF 0.5% Oph Sol 4 ML DROPS 1 DROP EYE-RIGHT (10:45)
[2022-10-18] MEDS: Cyclopentolate 1 % Ophth Sol 2 ML DRPBTL 1 DROP EYE-RIGHT ×3 (10:45→11:02)
[2022-10-18] MEDS: Ketorolac Tromethamine 0.5% Op 5 ML DROPS 1 DROP EYE-RIGHT ×3 (10:46→11:02)
[2022-10-18] MEDS: Tropicamide 1 % Ophth Sol 3 ML BTL 1 DROP EYE-RIGHT ×3 (10:46→11:02)
[2022-10-18] MEDS: Lactated Ringers 500 ML 50 ML IV (10:49)
[2022-10-18 11:11] VITALS: BP 176/59; PULSE 71; RESP 18; TEMP 36.3; O2SAT 95
--- NOTE | 2022-10-18 12:11 | HO.PNOPHT ---
Ophthalmology Procedure Procedure Date of Service: 10/18/22 Ophthalmology Viscoelastic: Petra Hernandezt Dual Pack Pro Ophthalmology Lenses: TECCECE [id number] (23.5) Procedure Notes: PREOPERATIVE DIAGNOSIS: Decreased visual acuity right eye secondary to cataract POSTOPERATIVE DIAGNOSIS: Same PROCEDURE: Right cataract extraction with intraocular lens insertion SURGEON: Christian Milan M.D. ANESTHESIA: Topical/MAC ESTIMATED BLOOD LOSS: None COMPLICATIONS: None After obtaining informed consent, the patient was brought to the operating room suite and placed in the supine position. After adequate sedation per anesthesia, topical drops of Tetracaine were given to the right eye. The eye was then prepped and draped in the usual sterile fashion. The operating room microscope was then positioned over the operative eye and a lid speculum placed. A paracentesis was created. Viscoelastic was then instilled into the anterior chamber. A three plane incision was then created temporally, utilizing a 2.85 mm keratome. Capsulotomy forceps were then utilized to create a circular tear capsulotomy. Hydrodissection and hydrodelineation were carried out until adequate mobilization of the nucleus occurred. Phacoemulsification was then utilized to remove the dense central nucleus followed by removal of the cortical material utilizing the automated aspiration irrigation unit. Viscoelastic was instilled into the posterior capsular bag followed by placement of a posterior chamber intraocular lens without difficulty. The residual Viscoelastic was then removed utilizing the automated IA machine. The wound was checked and found to be watertight. The patient tolerated the procedure well and the lid speculum was removed. Intracameral injection of Vigamox 0.1 mL followed by a subtenon injection of Kenalog-40 0.2 mL were administered. The patient will be seen in the a.m.
[2022-10-18 12:45] VITALS: BP 182/79; PULSE 76; RESP 18; TEMP 36.5; O2SAT 96
== END 2022-10-18 12:50 | disposition home or self-care (01) ==
PROVIDERS: PCP Internal Medicine; Visit Provider Ophthalmology
PROC: (CPT 66985; principal; 2022-10-18 12:10)
DX: H25.11 Age-related nuclear cataract, right eye (principal); H52.4 Presbyopia; H35.361 Drusen (degenerative) of macula, right eye; H18.413 Arcus senilis, bilateral; H11.153 Pinguecula, bilateral; I10 Essential (primary) hypertension; K21.9 Gastro-esophageal reflux disease without esophagitis; E78.2 Mixed hyperlipidemia; E03.9 Hypothyroidism, unspecified; D64.9 Anemia, unspecified; R42 Dizziness and giddiness; K76.0 Fatty (change of) liver, not elsewhere classified; Z79.51 Long term (current) use of inhaled steroids; Z79.899 Other long term (current) drug therapy; Z88.2 Allergy status to sulfonamides; Z88.8 Allergy status to other drugs, medicaments and biological substances
CPT/HCPCS: 66984; J2250; J3010; J3301; V2632

== ENCOUNTER 2022-10-27 06:53 | Emergency (ER) | payer OTHER, SELFPAY ==
[2022-10-27 06:55] VITALS: BP 178/85; PULSE 86; RESP 18; TEMP 37; O2SAT 96; BMI 33.7
--- NOTE | 2022-10-27 06:58 | ECG_ITS ---
Test Reason : CHEST PAIN Blood Pressure : / mmHG Vent. Rate : 077 BPM Atrial Rate : 077 BPM P-R Int : 144 ms QRS Dur : 086 ms QT Int : 390 ms P-R-T Axes : -06 -20 018 degrees QTc Int : 441 ms Normal sinus rhythm Inferior infarct , age undetermined Abnormal ECG When compared with ECG of 08-OCT-2022 09:20, Inferior infarct is now Present Referred By: Generic ED Physician Electronically Signed By:Flynn Watkins
[2022-10-27 07:21] LABS: MANUAL DIFF FLAG NO
[2022-10-27 07:24] LABS: Basophils Absolute Auto 0.1 X10*3/uL (0.0-0.2); Basophils Percent Auto 0.6 % (0-2); Eosinophils Absolute Auto 0.2 X10*3/uL (0.0-0.4); Eosinophils Percent Auto 1.8 % (0-4); Hematocrit 38.6 % (37.0-47.0); Hemoglobin 12.6 g/dl (12.0-16.0); Imm Gran Abs Auto 0.02 X10*3/uL (0.00-0.03); Imm Gran Pct Auto 0.2 % (0.0-0.4); Lymphocytes Absolute Auto 3.1 X10*3/uL (1.2-4.9); Mean Corpuscular HGB Conc 32.6 g/dl (31.0-35.0); Mean Corpuscular Hemoglobin 29.7 pg (27.0-33.0); Mean Platelet Volume 12.4 fL (9.4-12.3); Monocytes Absolute Auto 0.5 X10*3/uL (0.1-1.2); Monocytes Percent Auto 5.5 % (2-11); Neutrophils Absolute Auto 4.4 x10*3/uL (2.0-8.3); Neutrophils Percent Auto 53.9 % (45-73); Platelet Count 186 X10*3/uL (160-400); Red Blood Count 4.24 X10*6/uL (4.20-5.50); White Blood Count 8.2 X10*3/uL (4.8-10.8)
[2022-10-27 07:29] LABS: Glucose, Whole Blood 121 mg/dL (60-115)
--- NOTE | 2022-10-27 07:35 | PC.NURSE ---
Pt placed on monitor tech, NSR 70's. Labs obtained during triage.
[2022-10-27 07:36] VITALS: BP 160/79; PULSE 75; RESP 22; O2SAT 94
[2022-10-27 07:37] LABS: Anion Gap 13 (12-20); Blood Urea Nitrogen 18 mg/dL (9-16); Calcium 9.8 mg/dL (8.4-10.2); Carbon Dioxide 26 mmol/L (22-29); Chloride 110 mmol/L (96-108); Creatinine Clr Calc Pharmacy 42.4; Estimated Glomerular Filt Rate 56; Glucose Random 126 mg/dL (60-115); Potassium 4.8 mmol/L (3.3-5.1); Sodium 144 mmol/L (135-145)
--- NOTE | 2022-10-27 07:39 | ED_ITS ---
HPI - Chest Pain General Chief Complaint: Chest Pain Stated Complaint: high BP, CP Time Seen by Provider: 10/27/22 07:23 Source: patient and family (Daughter) History of Present Illness HPI narrative: This is a 77-year-old female who has a history of hypertension and was having some difficulty sleeping last night, which she has on occasion, and drink chamomile tea. She then called her daughter at approximately 06:15 this morning stating that I think I am having a heart attack in stated that she had a fast heart rate an a high blood pressure. Patient states that she has otherwise been feeling well and at this time patient states that she feels better and denies any fever, chills, shortness of breath, chest pain/palpitations, headache, dizziness, no GI or symptoms. Patient is status post cholecystectomy Related Data Home Medications Medication Instructions Recorded Confirmed multivitamin-ferrous 1 tab PO DAILY 05/17/22 10/11/22 fumarate-folic acid 18 mg-400 mcg tablet (Centrum) Previous Rx's Medication Instructions Recorded atorvastatin 10 mg tablet 10 mg PO DAILY #90 tabs 03/29/22 fenofibrate 54 mg tablet 54 mg PO DAILY #90 tabs 03/29/22 fluticasone propionate 50 1 spray intranasal BID 30 days #16 03/29/22 mcg/actuation nasal grams spray,suspension levothyroxine 50 mcg capsule 50 mcg PO DAILY 90 days #90 caps 03/29/22 losartan 100 mg tablet 100 mg PO DAILY #90 tabs 03/29/22 pantoprazole 40 mg tablet,delayed 40 mg PO DAILY 90 days #90 tabs 03/29/22 release polyethylene glycol 3350 17 gram 17 g PO DAILY #90 packets 03/29/22 oral powder packet verapamil 240 mg tablet,extended 240 mg PO DAILY 90 days #90 tabs 03/29/22 release naproxen 500 mg tablet 500 mg PO BID PRN pain 5 days #10 10/07/22 tabs acetaminophen 500 mg tablet 500 mg PO Q6H PRN fever 30 days 10/10/22 #120 tabs Allergies Allergy/AdvReac Type Severity Reaction Status Date / Time acetaminophen [From Vicodin] Allergy Intermediate Vomiting Verified 10/27/22 06:57 clarithromycin Allergy Intermediate RASH Verified 10/27/22 06:57 [CLARITHROMYCIN] hydrochlorothiazide Allergy Intermediate RASH Verified 10/27/22 06:57 [HYDROCHLOROTHIAZIDE] hydrocodone [From Vicodin] Allergy Intermediate Vomiting Verified 10/27/22 06:57 Sulfa (Sulfonamide Allergy Intermediate rash Verified 10/27/22 06:57 Antibiotics) tramadol [TRAMADOL] Allergy Intermediate RASH, Verified 10/27/22 06:57 vomiting moexipril [From Univasc] Allergy Mild lip Verified 10/27/22 06:57 deviation oxycodone [From Percocet] Allergy Mild vomiting Verified 10/27/22 06:57 valsartan [From Diovan] Allergy Mild RASH Verified 10/27/22 06:57 Review of Systems Review of Systems: Pertinent positives and negatives as stated in HPI [facility] Past Medical History Source: nursing notes reviewed Medical History Anemia Chronic GERD Chronic pain Essential hypertension Hypertension Hypothyroidism Left hip pain Mixed hyperlipidemia Numbness and tingling Polyarthralgia Postmenopausal Productive cough Right hip pain Vertigo Surgical History History of cholecystectomy History of esophagogastroduodenoscopy (EGD) History of total abdominal hysterectomy and bilateral salpingo-oophorectomy Hx of colonoscopy Status post laser ablation of incompetent vein Family History Family History Father Alzheimer disease Mother Stroke Other No family history of cancer Social History Social History Household Members: None Housing: Apartment Are you a primary personal care worker to a significant other at home: No Do you presently have visiting nurse or other home services: No Alcohol intake: never Patient Tobacco Use Status: Never used Tobacco e-Cigarette/Vaping Use: Never Used Second Hand Smoke Exposure: No Advance Directives: No Advance Directives Information Provided: Yes service: No Current occupational status: retired Cognitive needs: No Hearing needs: No Vision needs: Yes Physical Exam Vital Signs: Vital Signs: Last Vital Signs Temp 98.6 F 10/27/22 06:55 Pulse 75 10/27/22 07:36 Resp 22 H 10/27/22 07:36 BP 160/79 H 10/27/22 07:36 Pulse Ox 94 10/27/22 07:36 O2 Del Method Room Air 10/27/22 07:36 BMI result Body Mass Index 33.7 VITAL SIGNS: Reviewed. GENERAL: Well developed, well nourished, in no acute distress. HEAD: Normocephalic/atraumatic EYES: PERRLA, EOMI EARS: Ext canals without abnormality NOSE: Nares patent bilateral OROPHARYNX: no oral lesions noted, posterior pharynx clear NECK: Supple, no adenopathy LUNGS: Normal breath sounds. No adventitious sounds or accessory muscle use. SpO2<94> CARDIOVASCULAR: Regular rate and rhythm without noted murmurs, no JVD or lower extremity edema. ABDOMEN: Soft, mild epigastric discomfort, non-distended with bowel sounds. MUSCULOSKELETAL: No tenderness, deformities, or effusions noted on gross inspection. EXTREMITIES: No cyanosis, clubbing or edema. SKIN: Inspection of the skin reveals no rashes NEUROLOGIC: Alert and oriented x 4. Strength and sensation to light touch were grossly intact x 4. Medical Decision Making Medical Decision Making MDM Narrative: 77-year-old female with history and clinical presentation of chest pain that has since resolved, patient is feeling much better and the chest pain was not associated with any dizziness, diaphoresis, nausea or shortness of breath. Patient did take her own blood pressure medication and on review of that blood pressure appears to have significantly improved. 1109:Reviewed all investigations, serial troponins show a slight elevation although it is noted that patient did have significant elevation of blood pressure prior to this event. I discussed the case with the poured wall foreman as well as discussing patient's heart score of 5 and overall I agree that troponin levels are likely secondary to blood pressure and the recommendation is for blood pressure control and outpatient stress test. All results discussed with patient and her daughter at bedside and will discharge home with a referral to follow-up with cardiology. Differential Diagnosis Please see the discussion above Consult Healthcare Provider Management of the patient was discussed with: Qa Specialist Please see the discussion above Lab Data Please see the discussion 10/27/22 07:17 10/27/22 07:17 Labs: Lab Results 10/27/22 10/27/22 10/27/22 Range/Units 07:10 07:17 07:17 WBC 8.2 (4.8-10.8) X10*3/uL RBC 4.24 (4.20-5.50) X10*6/uL Hgb 12.6 (12.0-16.0) g/dl Hct 38.6 (37.0-47.0) % MCV 91.0 (80.0-98.0) fL MCH 29.7 (27.0-33.0) pg MCHC 32.6 (31.0-35.0) g/dl RDW 13.0 (11.0-16.0) % Plt Count 186 (160-400) X10*3/uL MPV 12.4 H (9.4-12.3) fL Immature Gran % (Auto) 0.2 (0.0-0.4) % Neut % (Auto) 53.9 (45-73) % Lymph % (Auto) 38.0 (20-40) % [place] % (Auto) 5.5 (2-11) % Eos % (Auto) 1.8 (0-4) % Baso % (Auto) 0.6 (0-2) % Lymph # (Auto) 3.1 (1.2-4.9) X10*3/uL [place] # (Auto) 0.5 (0.1-1.2) X10*3/uL Eos # (Auto) 0.2 (0.0-0.4) X10*3/uL Baso # (Auto) 0.1 (0.0-0.2) X10*3/uL Abs Immat Gran (auto) 0.02 (0.00-0.03) X10*3/uL Absolute Neuts (auto) 4.4 (2.0-8.3) x10*3/uL Absolute Nucleated RBC 0.000 (0.0-0.012) X10*3/uL Nucleated RBC % (auto) 0.0 (0.0-0.2) /100WBC Sodium 144 (135-145) mmol/L Potassium 4.8 (3.3-5.1) mmol/L Chloride 110 H (96-108) mmol/L Carbon Dioxide 26 (22-29) mmol/L Anion Gap 13 (12-20) BUN 18 H (9-16) mg/dL Creatinine 0.97 (0.5-1.4) mg/dL Estim Creat Clear Calc 42.4 Estimated GFR 56 POC Glucose 121 H (60-115) mg/dL Random Glucose 126 H (60-115) mg/dL Calcium 9.8 D (8.4-10.2) mg/dL Troponin I High Sens (<3.5-17.0) ng/L Urine Color Urine Appearance Urine pH (5.0-9.0) Ur Specific [place] (1.005-1.025) Urine Protein (Neg-Trace) mg/dL Urine Glucose (UA) (Negative) mg/dL Urine Ketones (Negative) mg/dL Urine Blood (Negative) Urine Nitrite (Negative) Ur Leukocyte Esterase (Negative) Urine RBC (0-2) /HPF Urine WBC (0-5) /HPF Ur Squamous Epith Cells (0-2) /HPF Urine Bacteria (None Seen) Hyaline Casts (0-2) /LPF 10/27/22 10/27/22 10/27/22 Range/Units 07:17 07:50 09:53 WBC (4.8-10.8) X10*3/uL RBC (4.20-5.50) X10*6/uL Hgb (12.0-16.0) g/dl Hct (37.0-47.0) % MCV (80.0-98.0) fL MCH (27.0-33.0) pg MCHC (31.0-35.0) g/dl RDW (11.0-16.0) % Plt Count (160-400) X10*3/uL MPV (9.4-12.3) fL Immature Gran % (Auto) (0.0-0.4) % Neut % (Auto) (45-73) % Lymph % (Auto) (20-40) % [place] % (Auto) (2-11) % Eos % (Auto) (0-4) % Baso % (Auto) (0-2) % Lymph # (Auto) (1.2-4.9) X10*3/uL [place] # (Auto) (0.1-1.2) X10*3/uL Eos # (Auto) (0.0-0.4) X10*3/uL Baso # (Auto) (0.0-0.2) X10*3/uL Abs Immat Gran (auto) (0.00-0.03) X10*3/uL Absolute Neuts (auto) (2.0-8.3) x10*3/uL Absolute Nucleated RBC (0.0-0.012) X10*3/uL Nucleated RBC % (auto) (0.0-0.2) /100WBC Sodium (135-145) mmol/L Potassium (3.3-5.1) mmol/L Chloride (96-108) mmol/L Carbon Dioxide (22-29) mmol/L Anion Gap (12-20) BUN (9-16) mg/dL Creatinine (0.5-1.4) mg/dL Estim Creat Clear Calc Estimated GFR POC Glucose (60-115) mg/dL Random Glucose (60-115) mg/dL Calcium (8.4-10.2) mg/dL Troponin I High Sens 4.5 7.7 D (<3.5-17.0) ng/L Urine Color Yellow Urine Appearance Clear Urine pH 6.5 (5.0-9.0) Ur Specific [place] 1.010 (1.005-1.025) Urine Protein 30 (1+) H (Neg-Trace) mg/dL Urine Glucose (UA) Negative (Negative) mg/dL Urine Ketones Negative (Negative) mg/dL Urine Blood Negative (Negative) Urine Nitrite Negative (Negative) Ur Leukocyte Esterase Trace H (Negative) Urine RBC 0-2 (0-2) /HPF Urine WBC 0-5 (0-5) /HPF Ur Squamous Epith Cells 0-2 (0-2) /HPF Urine Bacteria None Seen (None Seen) Hyaline Casts 0-2 (0-2) /LPF Independent Interpretation I performed an independent interpretation of an: EKG Interpretation: Normal sinus rhythm, HR-77, no STEMI, TN/QRS/QTC is within normal limits. External Record Review External record reviewed: Outpatient record and Prior outpatient labs Chronic Conditions Patient?s care impacted by: Hypertension Discharge Plan Discharge Clinical Impression: Chest pain Patient Disposition: Home, Self-Care Instructions: Chest Pain (ED) Additional Instructions: 1. Reanudar todos los medicamentos caseros seg?n lo prescrito. 2. Se le hancock dado roselia remisi?n para seguimiento con cardiolog?a y debe llamar al consultorio para programar roselia umer para la reevaluaci?n y la programaci?n de roselia prueba de esfuerzo. 3. Llame y radha un seguimiento con brown proveedor de atenci?n primaria tambi?n. Regrese a la emily de emergencias por cualquier recurrencia de s?ntomas o s?ntomas nuevos. 1. Resume all home medications as prescribed. 2. You have been given a referral to follow-up with cardiology and should call the office to set up an appointment for re-evaluation and scheduling of a stress test. 3. Please call and follow-up with your primary care provider as well. Return to the ER for any recurrence of symptoms or new symptoms. Prescriptions: No Action acetaminophen 500 mg tablet 500 mg PO Q6H PRN (Reason: fever) 30 Days Qty: 120 3RF Centrum 18-400 mg-mcg Tablet 1 tab PO DAILY fenofibrate 54 mg tablet 54 mg PO DAILY Qty: 90 3RF atorvastatin 10 mg tablet 10 mg PO DAILY Qty: 90 3RF fluticasone propionate 50 mcg/actuation spray,suspension 1 spray intranasal BID 30 Days Qty: 16 2RF Rx Instructions: administer into each nostril levothyroxine 50 mcg capsule 50 mcg PO DAILY 90 Days Qty: 90 3RF losartan 100 mg tablet 100 mg PO DAILY Qty: 90 3RF pantoprazole 40 mg tablet,delayed release (DR/EC) 40 mg PO DAILY 90 Days Qty: 90 3RF verapamil 240 mg tablet extended release 240 mg PO DAILY 90 Days Qty: 90 3RF polyethylene glycol 3350 17 gram powder in packet 17 g PO DAILY Qty: 90 2RF naproxen 500 mg tablet 500 mg PO BID PRN (Reason: pain) 5 Days Qty: 10 2RF Referrals: Flynn Watkins MD [Physician] - Hayed Richter MD [Primary Care Provider] - Print Language: Citizen Of [place]
[2022-10-27 07:46] LABS: Troponin-I High Sensitivity 4.5 ng/L (<3.5-17.0)
--- NOTE | 2022-10-27 07:52 | PC.NURSE ---
Plan for repeat troponin at 1000
[2022-10-27 07:58] LABS: Appearance Urine Clear; Color Urine Yellow; Glucose Urine UA Negative (Negative); Leukocyte Esterase Urine Trace (Negative); Nitrite Urine Negative (Negative); PH 6.5 (5.0-9.0); UMIC TRIGGER UACC YES; Urine Blood Negative (Negative); Urine Ketones Negative (Negative); Urine Protein 30 (1+) mg/dL (Neg-Trace)
[2022-10-27 08:01] LABS: Bacteria Urine None Seen (None Seen); Hyaline Casts Urine 0-2 /LPF (0-2); RBC Urine 0-2 /HPF (0-2); Squamous Epithelial Cell Urine 0-2 /HPF (0-2); WBC Urine 0-5 /HPF (0-5)
[2022-10-27 10:36] LABS: Troponin-I High Sensitivity 7.7 ng/L (<3.5-17.0)
[2022-10-27 11:18] VITALS: BP 140/61; PULSE 78; RESP 16; TEMP 37.1; O2SAT 98
== END 2022-10-27 11:22 | disposition home or self-care (01) ==
PROVIDERS: Emergency Provider Student in an Organized Health Care Education/Training Program; PCP Internal Medicine
DX: R07.89 Other chest pain (principal); I10 Essential (primary) hypertension; Z79.899 Other long term (current) drug therapy
CPT/HCPCS: 36415; 80048; 81001; 82947; 84484; 85025; 93005; 99283; 99285

== ENCOUNTER 2022-11-01 09:06 | Day surgery (SDC) | payer OTHER, SELFPAY ==
[2022-10-11 13:38] VITALS: BMI 33.7
--- NOTE | 2022-10-29 08:30 | MHC.SHP ---
Pre-Procedural Eval Section A Date of Service: 10/29/22 The patient is an INPATIENT: No Changes since office visit: No Cold of Flu in the past 2 weeks, No New Medical Problems, No Changes in Medication and No Patient answered all questions The History & Physical has been completed within 30 days and I have reviewed it.: Yes Section B Chief Complaint: Age-related nuclear cataract, left eye Allergies: Allergies Allergy/AdvReac Type Severity Reaction Status Date / Time acetaminophen [From Vicodin] Allergy Intermediate Vomiting Verified 10/27/22 06:57 clarithromycin Allergy Intermediate RASH Verified 10/27/22 06:57 [CLARITHROMYCIN] hydrochlorothiazide Allergy Intermediate RASH Verified 10/27/22 06:57 [HYDROCHLOROTHIAZIDE] hydrocodone [From Vicodin] Allergy Intermediate Vomiting Verified 10/27/22 06:57 Sulfa (Sulfonamide Allergy Intermediate rash Verified 10/27/22 06:57 Antibiotics) tramadol [TRAMADOL] Allergy Intermediate RASH, Verified 10/27/22 06:57 vomiting moexipril [From Univasc] Allergy Mild lip Verified 10/27/22 06:57 deviation oxycodone [From Percocet] Allergy Mild vomiting Verified 10/27/22 06:57 valsartan [From Diovan] Allergy Mild RASH Verified 10/27/22 06:57 Plan Diagnosis/Plan: Unchanged I have reviewed the history and physical and performed a pertinent physical examination on my patient. No changes have occurred unless specified. Time Spent With Patient Time: Total time managing care of this patient today ____ minutes.
--- NOTE | 2022-10-29 09:38 | P.CONAN_ITS ---
Documented by User: Kendra Yuan NP 10/29/22 09:39 HPI - Anesthesia Eval Consult details Narrative: 77yo F for Left Cataract Extraction IOL Insertion PCP cleared 1st eye 10/18/22 with Fent 50, Midaz 0.5 PMFSH Active Problems Active Problems: All Active Problems (Updated 10/28/22 @ 00:45 by Background Daemon) Pre-op evaluation (Acute) Chronic GERD (Acute) Postmenopausal (Acute) Numbness and tingling (Acute) Normochromic normocytic anemia (Acute) Anemia (Acute) NAFL (nonalcoholic fatty liver) (Acute) Productive cough (Acute) Colon cancer screening (Acute) Abdominal bloating (Acute) Chronic constipation (Acute) Upper abdominal pain (Acute) Hypothyroidism (Acute) Polyarthralgia (Acute) Mixed hyperlipidemia (Acute) Vertigo (Acute) Essential hypertension (Acute) Left knee pain (Acute) Past Medical History Medical History Anemia Chronic GERD Chronic pain Essential hypertension Hypertension Hypothyroidism Left hip pain Mixed hyperlipidemia Numbness and tingling Polyarthralgia Postmenopausal Productive cough Right hip pain Vertigo Family History Family History Father Alzheimer disease Mother Stroke Other No family history of cancer Surgical History Surgical History History of cholecystectomy History of esophagogastroduodenoscopy (EGD) History of total abdominal hysterectomy and bilateral salpingo-oophorectomy Hx of colonoscopy Status post laser ablation of incompetent vein History of Problems with Anesthesia: No Social History Social History Household Members: None Housing: Apartment Are you a primary medicare sales executive to a significant other at home: No Do you presently have visiting nurse or other home services: No Alcohol intake: never Patient Tobacco Use Status: Never used Tobacco e-Cigarette/Vaping Use: Never Used Second Hand Smoke Exposure: No Use of substances other than those prescribed or required for medical reasons: No Advance Directives Information Provided: Yes Advance Directives on File: No Recently lost weight without trying: No Eating poorly because of decreased appetite: No Nutrition Risks: Surgical patient >75years service: No Current occupational status: retired Cognitive needs: No Hearing needs: No Vision needs: Yes Meds Allergies Allergy/AdvReac Type Severity Reaction Status Date / Time acetaminophen [From Vicodin] Allergy Intermediate Vomiting Verified 10/27/22 06:57 clarithromycin Allergy Intermediate RASH Verified 10/27/22 06:57 [CLARITHROMYCIN] hydrochlorothiazide Allergy Intermediate RASH Verified 10/27/22 06:57 [HYDROCHLOROTHIAZIDE] hydrocodone [From Vicodin] Allergy Intermediate Vomiting Verified 10/27/22 06:57 Sulfa (Sulfonamide Allergy Intermediate rash Verified 10/27/22 06:57 Antibiotics) tramadol [TRAMADOL] Allergy Intermediate RASH, Verified 10/27/22 06:57 vomiting moexipril [From Univasc] Allergy Mild lip Verified 10/27/22 06:57 deviation oxycodone [From Percocet] Allergy Mild vomiting Verified 10/27/22 06:57 valsartan [From Diovan] Allergy Mild RASH Verified 10/27/22 06:57 Home Medications Medication Instructions Recorded Confirmed Last Taken Type multivitamin-ferrous 1 tab PO DAILY 05/17/22 10/11/22 Unknown History fumarate-folic acid 18 mg-400 mcg tablet (Centrum) Exam Exam Date and Time: October 29, 2022 0938 Height,Weight and Vital Signs: Height 4 ft 11 in Weight 75.75 kg Assessment and Plan Assessment Anesthesia Assessment: Chart Reviewed Final Anesthetic Review History of Problems with Anesthesia: No Documented by User: Mel Carter MD 11/01/22 10:09 [facility] Past Medical History Medical History Anemia Chronic GERD Chronic pain Essential hypertension Hypertension Hypothyroidism Left hip pain Mixed hyperlipidemia Numbness and tingling Polyarthralgia Postmenopausal Productive cough Right hip pain Vertigo Family History Family History Father Alzheimer disease Mother Stroke Other No family history of cancer Family history of problems with anesthesia: No Surgical History Surgical History History of cholecystectomy History of esophagogastroduodenoscopy (EGD) History of total abdominal hysterectomy and bilateral salpingo-oophorectomy Hx of colonoscopy Status post laser ablation of incompetent vein Social History Social History Household Members: None Housing: Apartment Are you a primary medicare sales executive to a significant other at home: No Do you presently have visiting nurse or other home services: No Alcohol intake: never Patient Tobacco Use Status: Never used Tobacco e-Cigarette/Vaping Use: Never Used Second Hand Smoke Exposure: No Use of substances other than those prescribed or required for medical reasons: No Advance Directives Information Provided: Yes Advance Directives on File: No Recently lost weight without trying: No Eating poorly because of decreased appetite: No Nutrition Risks: Surgical patient >75years service: No Current occupational status: retired Cognitive needs: No Hearing needs: No Vision needs: Yes Meds Allergies Allergy/AdvReac Type Severity Reaction Status Date / Time acetaminophen [From Vicodin] Allergy Intermediate Vomiting Verified 10/27/22 06:57 clarithromycin Allergy Intermediate RASH Verified 10/27/22 06:57 [CLARITHROMYCIN] hydrochlorothiazide Allergy Intermediate RASH Verified 10/27/22 06:57 [HYDROCHLOROTHIAZIDE] hydrocodone [From Vicodin] Allergy Intermediate Vomiting Verified 10/27/22 06:57 Sulfa (Sulfonamide Allergy Intermediate rash Verified 10/27/22 06:57 Antibiotics) tramadol [TRAMADOL] Allergy Intermediate RASH, Verified 10/27/22 06:57 vomiting moexipril [From Univasc] Allergy Mild lip Verified 10/27/22 06:57 deviation oxycodone [From Percocet] Allergy Mild vomiting Verified 10/27/22 06:57 valsartan [From Diovan] Allergy Mild RASH Verified 10/27/22 06:57 Home Medications Medication Instructions Recorded Confirmed Last Taken Type multivitamin-ferrous 1 tab PO DAILY 05/17/22 10/11/22 Unknown History fumarate-folic acid 18 mg-400 mcg tablet (Centrum) Exam Airway Mallampati Class: II TM Dist: >3cm Neck ROM: Full Heart: rrr Lungs: cta Assessment and Plan Assessment Anesthesia Assessment: Anesthesia Plan Discussed Final Anesthetic Review Family History of Problems with Anesthesia: No NPO: Yes ASA Class: II Final Preanesthetic Review: No Changes in Pt Med Stat, Meds/Allgs Chart Reviewed and Consent Obtained/Reviewed Patient Risk: Low Procedure Risk: Low Anesthetic Plan Anesthetic Plan: MAC: Disposition: Standard PACU
[2022-11-01 09:50] VITALS: BP 164/96; PULSE 69; RESP 18; TEMP 36.3; O2SAT 97
[2022-11-01] MEDS: Tetracaine HCl/PF 0.5% Oph Sol 4 ML DROPS 1 DROP EYE-LEFT (10:03)
[2022-11-01] MEDS: Cyclopentolate 1 % Ophth Sol 2 ML DRPBTL 1 DROP EYE-LEFT ×3 (10:03→10:04)
[2022-11-01] MEDS: Ketorolac Tromethamine 0.5% Op 5 ML DROPS 1 DROP EYE-LEFT ×3 (10:04→10:05)
[2022-11-01] MEDS: Phenylephrine HCL 2.5% Oph SoL 2 ML BOTTLE 1 DROP EYE-LEFT ×3 (10:04→10:05)
[2022-11-01] MEDS: Tropicamide 1 % Ophth Sol 3 ML BTL 1 DROP EYE-LEFT ×3 (10:04→10:05)
--- NOTE | 2022-11-01 11:15 | HO.PNOPHT ---
Ophthalmology Procedure Procedure Date of Service: 11/01/22 Ophthalmology Viscoelastic: Healirlanda Hernandezt Dual Pack Pro Ophthalmology Lenses: TECCECE [id number] (24) Procedure Notes: PREOPERATIVE DIAGNOSIS: Decreased visual acuity left eye secondary to cataract POSTOPERATIVE DIAGNOSIS: Same PROCEDURE: Left cataract extraction with intraocular lens insertion SURGEON: Christian Milan M.D. ANESTHESIA: Topical/MAC ESTIMATED BLOOD LOSS: None COMPLICATIONS: None After obtaining informed consent, the patient was brought to the operation room suite and placed in the supine position. After adequate sedation per anesthesia, topical drops of Tetracaine were given to the left eye. The eye was then prepped and draped in the usual sterile fashion. The operating room microscope was then positioned over the operative eye and a lid speculum placed. A paracentesis was created. Viscoelastic was then instilled into the anterior chamber. A three plane incision was then created temporally, utilizing a 2.85 mm keratome. Capsulotomy forceps were then utilized to create a circular tear capsulotomy. Hydrodissection and hydrodelineation were carried out until adequate mobilization of the nucleus occurred. Phacoemulsification was then utilized to remove the dense central nucleus followed by removal of the cortical material utilizing the automated aspiration irrigation unit. Viscoat elastic was instilled into the posterior capsular bag followed by placement of a posterior chamber intraocular lens without difficulty. The residual Viscoat elastic was then removed utilizing the automated IA machine. The wound was check and found to be watertight. The patient tolerated the procedure well and the lid speculum was removed. Intracameral injection of Vigamox 0.1 mL followed by a subtenon injection of Kenalog-40 0.2 mL were administered. The patient will be seen in the a.m.
[2022-11-01 11:39] VITALS: BP 157/67; PULSE 68; RESP 20; TEMP 36.6; O2SAT 99
== END 2022-11-01 11:50 | disposition home or self-care (01) ==
PROVIDERS: PCP Internal Medicine; Visit Provider Ophthalmology
PROC: (CPT 66985; principal; 2022-11-01 11:50)
DX: H25.12 Age-related nuclear cataract, left eye (principal); H52.4 Presbyopia; H11.153 Pinguecula, bilateral; H35.361 Drusen (degenerative) of macula, right eye; I10 Essential (primary) hypertension; E03.9 Hypothyroidism, unspecified; E78.2 Mixed hyperlipidemia; K21.9 Gastro-esophageal reflux disease without esophagitis; D64.9 Anemia, unspecified; Z79.899 Other long term (current) drug therapy; M19.90 Unspecified osteoarthritis, unspecified site; Z88.8 Allergy status to other drugs, medicaments and biological substances; Z88.1 Allergy status to other antibiotic agents; Z88.2 Allergy status to sulfonamides
CPT/HCPCS: 66984; J2250; J3301; V2632

== ENCOUNTER → 2022-11-03 13:37 | Outpatient (BNVA) | payer OTHER, SELFPAY | PROVIDERS: PCP Internal Medicine; Visit Provider Internal Medicine Cardiovascular Disease | DX: R00.2 Palpitations (principal); I10 Essential (primary) hypertension | CPT/HCPCS: 99202 ==

== ENCOUNTER → 2022-12-07 09:19 | Outpatient (REF) | payer OTHER, SELFPAY ==
--- NOTE | 2022-12-07 09:21 | CA_ITS ---
Transthoracic Echocardiogram Patient (Last, First, Middle): Vidhi Andrews E Gender: Female Date of : 1945 Age: 77 Procedure Date: 12/07/2022 Procedure Type: Transthoracic Echocardiogram Location: OP Height: 149.86 cm Weight: 73.48 kg BSA: 1.69 m2 Heart Rate: 65 bpm BP: 138 / 60 mmHg Assistant Superintendent For Curriculum: SB Referring MD: Flynn Watkins MD Asbestos Shingle Inspector: Flynn Watkins MD Symptoms: R00.2 - Palpitations Study Quality: Adequate ECG Rhythm: Sinus Conclusions: - Normal left ventricular size and systolic function. There is mildly increased left ventricular wall thickness. The visually estimated ejection fraction is between 60-65%. - E/E prime ratio is between 8 and 15 consistent with indeterminate filling pressures. Normal GLS -21 %. - Normal right ventricular cavity size and systolic function. - The left atrium is mildly dilated. The right atrium is moderately dilated. - There is mild dilatation of the ascending aorta measuring 3.40 cm. Findings Left Ventricle Normal left ventricular size and systolic function. There is mildly increased left ventricular wall thickness. The visually estimated ejection fraction is between 60-65%. There is no evidence of regional wall motion abnormalities. Diastolic function is indeterminate on the basis of available data. Spectral Doppler is indicative of an impaired relaxation filling pattern. E/E prime ratio is between 8 and 15 consistent with indeterminate filling pressures. Normal GLS -21 %. Right Ventricle Normal right ventricular cavity size and systolic function. Atria The left atrium is mildly dilated. The right atrium is moderately dilated. Aortic Valve Normal aortic valve structure and function. There is no aortic valve stenosis. There is trace (trivial) aortic valve regurgitation. Mitral Valve The mitral valve appears normal. There is trace mitral valve regurgitation. There is no mitral valve stenosis. Pulmonic Valve Normal pulmonic valve structure and function. There is no pulmonic valve regurgitation. Tricuspid Valve Normal tricuspid valve structure. There is trace tricuspid valve regurgitation. Normal right atrial pressure. There is no evidence of pulmonary hypertension. Great Vessels There is mild dilatation of the ascending aorta measuring 3.40 cm. The visualized portions of the pulmonary artery and branches are normal. Venous The inferior vena cava is normal in size and collapses greater than 50% with inspiration. Pericardium/Pleural There is no evidence of pericardial effusion. Prior Study Comparison Changes noted compared to prior study dated: 07/12/2019. Mild dilation ascending aorta. diastolic function is indeterminate. Measurements 2D Linear Measurements IVSd: 1.11 0.6-0.9/0.6-1.0 cm LVIDd: 4.45 3.9-5.3/4.2-5.9 cm LVIDd Index: 2.63 2.4-3.2/2.2-3.1 cm/m2 LVIDs: 2.91 2.0-3.6 cm LVPWd: 0.88 0.7-1.1 cm LA Diam: 4.40 2.7-3.8/3.0-4.0 cm LAIDs Index: 2.60 1.5-2.3 cm/m2 LV Mass: 185.48 67-162/88-224 g LV Mass Index: 109.75 43-95/49-115 g/m2 LVOT Diam: 2.00 3.0+(-)1.3 cm 2D Systolic Function EF 4C: 65.30 >55% EF 2C: 51.70 >55% EF BiP: 58.30 >55% Mitral Valve MV Pk E: 0.74 MV PK A: 1.01 MV Decel Time: 220.00 E/A: 0.70 E'Lateral: 8.16 E'Medial: 5.77 E/E' Med: 12.80 E/E' Lat: 9.10 PHT: 65.00 MVA PHT: 3.38 Decel Hubbard: 3.36 Aortic Valve AoV Pk Trace: 1.25 AoV Pk Grad: 6.00 MIREILLE: 2.70 LVOT LVOT Pk Trace: 1.09 LVOT Mn Trace: 0.73 LVOT VTI: 0.26 LVOT Pk Grad: 5.00 LVOT Mn Grad: 2.00 LVOT Diam: 2.00 LVOT Area: 3.14 Diastolic Function MV Pk E: 0.74 MV Pk A: 1.01 E/A: 0.70 E'Medial: 5.77 E/E' Med: 12.80 E' Laterial: 8.16 E/E' Lat: 9.10 Right Ventricle TAPSE (mm): 20.80 TVS' Trace: 10.60 Tricuspid Valve TR Pk Trace: 2.45 TR Pk Grad: 24.00 RA Press: 3.00 RVSP: 27.00 Great Vessels Aorta Sinus of Valsalva: 3.00 2.0-3.5 cm Ao Asc: 3.40 2.1-3.4 cm Pulmonary Veins Pulm Vein S/D 1.90 Pulmonary Valve PV Pk Trace: 0.80 Peak PV Grad: 3.00 Updated in Other Vendor System with Status of Final Flynn Watkins MD electronically signed on 12/09/2022 12:56:29 PM with status of Final
== END ==
LOC: HO.CARD 09:19
PROVIDERS: PCP Internal Medicine; Visit Provider Internal Medicine Cardiovascular Disease
DX: R00.2 Palpitations (principal)
CPT/HCPCS: 93306; 93356

== ENCOUNTER 2023-01-13 12:54 | Outpatient (AMB) | payer OTHER, SELFPAY ==
--- NOTE | 2023-01-13 13:11 | A.OFFVIS_ITS ---
Intake Vital Signs 01/13/23 13:13 Height 4 ft 11 in Weight 168 lb BMI 33.9 BP 116/58 L Blood Pressure Location Lt brachial Position Sitting Pulse 66 Intake Visit Reasons: 6 Month f/u Gerd Intake Note: Patient follow up for abdominal bloating. Patient cc: constipation on and off. Denies any other GI issues. Manager Practice Required: Yes Manager Practice Name: [facility] interpeter Shilo Accompanied by: Self / Same As Patient Allergies clarithromycin [CLARITHROMYCIN] Allergy (Intermediate, Verified 01/13/23 13:10) Rash hydrochlorothiazide [HYDROCHLOROTHIAZIDE] Allergy (Intermediate, Verified 01/13/23 13:10) Rash Sulfa (Sulfonamide Antibiotics) Allergy (Intermediate, Verified 01/13/23 13:10) Rash tramadol [TRAMADOL] Allergy (Intermediate, Verified 01/13/23 13:10) Rash, vomiting moexipril [From Univasc] Allergy (Mild, Verified 01/13/23 13:10) lip deviation valsartan [From Diovan] Allergy (Mild, Verified 01/13/23 13:10) Rash acetaminophen [From Vicodin] Adverse Reaction (Intermediate, Verified 01/13/23 13:10) Vomiting hydrocodone [From Vicodin] Adverse Reaction (Intermediate, Verified 01/13/23 13:10) Vomiting oxycodone [From Percocet] Adverse Reaction (Mild, Verified 01/13/23 13:10) vomiting Medication List - Last Reconciled 01/13/23 by Nazia Vásquez MD acetaminophen 500 mg PO Q6H PRN 30 days atorvastatin 10 mg PO DAILY fenofibrate 54 mg PO DAILY fluticasone propionate 50 mcg/actuation 1 spray intranasal BID 30 days levothyroxine 50 mcg PO DAILY 90 days losartan 100 mg PO DAILY [id number]-[id number]-utnfi acid 18-400 mg-mcg (Centrum) 1 tab PO DAILY naproxen 500 mg PO BID PRN 5 days pantoprazole 40 mg PO DAILY 90 days verapamil ER 240 mg PO DAILY 90 days HPI 6 Month f/u Gerd HPI Details GI CLINIC VISIT FOR THIS 76-YEAR-OLD WOLOF-SPEAKING FEMALE FOR FOLLOW-UP OF EPIGASTRIC PAIN. PMX:?Arthritis, Hypertension, Hyperlipidemia, Heart problems, Diverticulosis, Gastritis, thyroid disease ? SURGICAL HISTORY: ATILIO with BSO, cholecystectomy lap ?raksul LABS:?07/08/19 REVIEWED NORMAL CBC WITH PLATELET COUNT OF 137, INR OF 1, ? NORMAL LFTS MILD INCREASE IN BILIRUBIN OF 1.4 ? VITAMIN B12 WAS 168 AND 2012. ?IMAGING STUDIES: 09/15/20 ABDOMINAL ULTRASOUND SHOWED:? LIVER: The liver is normal in size. The liver contour is normal. There is diffuse mildly increased liver parenchymal echogenicity, consistent with hepatic steatosis.? No focal hepatic lesion. There is no intrahepatic biliary duct dilatation seen. GALLBLADDER: Surgically absent. COMMON BILE DUCT: Prominent in caliber measuring 1.0 cm in diameter. This can be seen in the postcholecystectomy setting. RIGHT KIDNEY: Parapelvic cysts versus renal pelvic fullness. No hydronephrosis or renal calculi. The kidney measures 9.6 cm in maximum dimension. LEFT KIDNEY: Parapelvic cysts are present. No hydronephrosis or renal calculi. The kidney measures 9.7 cm in maximum dimension. SPLEEN: Normal. The spleen measures 9.4 cm in maximum dimension. ?06/22/[address] SCAN SHOWED: ? IMPRESSION: ? Diverticulosis. No evidence of diverticulitis. Bilateral renal peripelvic cysts ?05/01 UGI SHOWED: ? There is a small hiatal hernia with moderate gastroesophageal reflux into the upper esophagus. ? Otherwise, the course, caliber and peristalsis of stomach, duodenal ? bulb and the sweep is normal. The mucosal pattern of stomach, duodenal ? bulb and CBD is normal except for a small round filling defect in the ? third segment duodenum on several last images.. Question prominent ? Eboni's gland, mass or polyp. Incidental note is made of previous cholecystectomy. ?ENDOSCOPIC STUDIES: 09/07/19 EGD AND COLONOSCOPY SHOWED: ? ESOPHAGUS: Small hiatus hernia and focal mild esophagitis ? STOMACH: Gastritis and gastric polyps ? Colonoscopy Findings: ? No polyps were detected ? Moderate to severe diverticulosis seen in the left colon ? Small hemorrhoids on retroflexed exam. ? Plan: ? Await pathology results ? Continue present medications ? Repeat Colonoscopy in 10 years if pt remains in stable health. ? Above findings were reviewed with the patient and GERD and diverticulosis handouts ? were provided. ? A. Small bowel, biopsy: Small intestinal mucosa within normal limits. ? B. Stomach, biopsy: Antral-type mucosa with moderate chronic inactive inf lammation; no ? Helicobacter organisms seen. ? C. Stomach polyp: Fundic gland polyp with background mild chronic inactive inflammation; no Helicobacter organisms seen. ?TODAY'S VISIT ?[facility] TECHNICAL MAINTENANCE SPECIALIST, Shilo Patient follow up for GERD and fatty liver. Patient cc: acid reflex on and off, denies any other GI issues. Lab results were reviewed with the patient. Denies abdominal pain or heartburn. Continues to have constipation. Has a BM sometimes twice a day and sometimes every other day. She takes medications for constipation as needed. ?PAST VISIT: Abd US results were reviewed with the patient. ? Denies any abd pain at present. Had abdominal pain a week ago after eating a buffet - took TUMS and pain went away. ?Abd pain is much better and sometimes she gets it and sometimes she does not. ? Can be once a week to once a month and can last all day or a few hrs. ? Notes a little bit of heartburn - 2-3 times a week - sometimes day or night. ? Avoids spicy foods. ? Constipation improved with medications - Senna with colace. ? EGD and Colonoscopy and bx results were reviewed with the patient. ? Continues to have pain in her throat. ? Called her PCP and was prescribed PCN and the sore throat is getting be tter. ? Taking Senna three times a week alternating with Miralax and continuing to have constipation - advised to take Senna daily and take Miralax every other day. ? Pain is intermittent 8/10 in intensity and feels like a pressure. ? Pain radiates to the back and lower extremities. ? Pain is constant and varies in intensity. ? Unable to identify any precipitating factors. ? Thinks its her thyroid medication which is causing the pain. ? Pain gets a little better after a BM or passing gas. ? Notes chills and denies fever, ? Complains of decreased appetite and weight loss of 7 lbs since 03/01. ? Has been eating less and notes heartburn, early satiety, nausea and occasional vomiting, gas and bloating. ? Vomiting can be bilious. ? Denies dysphagia. ? Patient denies change in bowel habits, black stools or rectal bleeding. ? Chronic constipation and has a BM every other day if she takes medication for constipation ? Denies past problems with anesthesia or sleep apnea. ? Snores loudly. ? Denies major heart or lung problems ? Denies use of NSAIDS or blood thinners. STOPPED TAKING PLAVIX A YEAR AGO ? FAMILY HISTORY: Denies known FH of colon polyps, colon cancer or GI malignancy PFSH Medical History (Updated 01/13/23 @ 13:57 by Nazia Vásquez MD) Anemia Cataracts, bilateral Chronic GERD Chronic pain Essential hypertension Hypertension Hypothyroidism Left hip pain Mixed hyperlipidemia Numbness and tingling Polyarthralgia Postmenopausal Productive cough Right hip pain Vertigo Surgical History (Updated 01/13/23 @ 13:12 by Vidhi Andrews) History of cholecystectomy History of esophagogastroduodenoscopy (EGD) History of total abdominal hysterectomy and bilateral salpingo-oophorectomy Hx of colonoscopy Hx of eye surgery Status post laser ablation of incompetent vein Family History Father Alzheimer disease Mother Stroke Other No family history of cancer Social History Household Members: None Housing: Apartment Are you a primary patient centered care specialist to a significant other at home: No Do you presently have visiting nurse or other home services: No Alcohol intake: never Patient Tobacco Use Status: Never used Tobacco e-Cigarette/Vaping Use: Never Used Second Hand Smoke Exposure: No service: No Current occupational status: retired Cognitive needs: No Hearing needs: No Vision needs: Yes Review of Systems Const All systems reviewed & are unremarkable except as noted in HPI and below Physical Exam Vital Signs: Last Vital Signs Pulse 66 01/13/23 13:13 BP 116/58 L 01/13/23 13:13 BMI result Body Mass Index 33.9 Const General: healthy appearing and no acute distress Nutritional Appearance: obese Orientation/consciousness: patient oriented x3 Limitations: language barrier HEENT Head: Yes normal to inspection Ears: hearing grossly normal bilaterally Eyes Sclerae: sclerae normal Pupils: Equal, round and reactive pupils present Neck Neck: Yes normal visual inspection Chest Chest palpation & inspection: normal inspection of the chest Resp Effort & Inspection: normal respiratory effort Auscultation: clear to auscultation bilaterally Cardio Palpation: normal PMI Rate: regular rate Rhythm: regular rhythm Heart sounds: S1 normal heart sound present, S2 normal heart sound present and no murmurs GI Palpation (GI): Soft to palpation, nontender and No hepatosplenomegaly present Auscultation: normal bowel sounds Rectal Exam - Female: deferred Skin General skin exam: no rashes or lesions noted Neuro General: patient oriented x3, gait normal and moves all extremities Cranial nerves: Yes Equal, round and reactive pupils present Psych Appearance: grossly normal Mental Status: mental status grossly normal Assessment & Plan Assessment & Plan (1) Upper abdominal pain: Code(s): R10.10 - Upper abdominal pain, unspecified (2) Chronic constipation: Comment: Continue Miralax prn Code(s): K59.09 - Other constipation (3) Abdominal bloating: Code(s): R14.0 - Abdominal distension (gaseous) (4) Colon cancer screening: Comment: 08/2019 No polyps were detected on colonoscopy. Repeat Colonoscopy can be considered in 10 years if patient remains in stable health. Code(s): Z12.11 - Encounter for screening for malignant neoplasm of colon (5) NAFL (nonalcoholic fatty liver): Code(s): K76.0 - Fatty (change of) liver, not elsewhere classified (6) Chronic GERD: Code(s): K21.9 - Gastro-esophageal reflux disease without esophagitis Plan: Continue Pantoprazole 40 mg daily Plan 77 year old [place] Citizen-speaking female with Arthritis, Hypertension, Hyperlipidemia, Heart problems, Diverticulosis, Gastritis seen for evaluation of abdominal pain with bloating and chronic constipation. Upper GI showed mild reflux and a small round filling defect in the third segment duodenum on several last images raising concern for a polyp, mass or prominent Eboni's gland. Patient was advised to start famotidine for GERD and abdominal pain and use senna for constipation. 08/30 EGD showed a small hiatal hernia with focal esophagitis, gastritis and multiple hyperplastic gastric polyps. No nodule or polyp was visualized in the duodenum. 09/2020 Abd US showed?mild hepatic steatosis and parapelvic renal cysts?(she is > 20 yrs status post lap cathleen). Follow-up appointment in 6 months Medications: New polyethylene glycol 3350 (Miralax) 17 grams PO DAILY PRN 510 grams 3RF constipation 30 days K59.09 - Other constipation Coding Level of Care Code Est Pt Level 3 (74165) Diagnoses Upper abdominal pain R10.10 Chronic constipation K59.09 Abdominal bloating R14.0 Colon cancer screening Z12.11 NAFL (nonalcoholic fatty liver) K76.0 Chronic GERD K21.9 Time Spent (min) 16
[2023-01-13 13:13] VITALS: BP 116/58; PULSE 66; BMI 33.9
== END 2023-01-13 13:55 | disposition home or self-care (01) ==
PROVIDERS: Visit Provider Internal Medicine Gastroenterology
DX: R10.10 Upper abdominal pain, unspecified (principal); K59.09 Other constipation; R14.0 Abdominal distension (gaseous); Z12.11 Encounter for screening for malignant neoplasm of colon; K76.0 Fatty (change of) liver, not elsewhere classified; K21.9 Gastro-esophageal reflux disease without esophagitis
CPT/HCPCS: 99213

== ENCOUNTER → 2023-01-13 12:54 | Outpatient (BNVA) | payer OTHER, SELFPAY | LOC: CF 14:01 | PROVIDERS: Absent Provider Internal Medicine; PCP Internal Medicine; Visit Provider Internal Medicine Gastroenterology | DX: K21.9 Gastro-esophageal reflux disease without esophagitis (principal); Z12.11 Encounter for screening for malignant neoplasm of colon; K59.09 Other constipation; K76.0 Fatty (change of) liver, not elsewhere classified; R10.10 Upper abdominal pain, unspecified; R14.0 Abdominal distension (gaseous) | CPT/HCPCS: 99212 ==

== ENCOUNTER 2023-02-08 10:29 | Outpatient (AMB) | payer OTHER, SELFPAY ==
--- NOTE | 2023-02-08 10:30 | MHC.PC.OV ---
Vital Signs 02/08/23 10:31 Height 4 ft 11 in Weight 165 lb BMI 33.3 BP 130/74 Blood Pressure Location Lt brachial Position Sitting Intake Visit Reasons: gerd, lipids, bp Intake Note: Patient here for a follow up gerd, lipids, bp String Laster Required: No Accompanied by: Self / Same As Patient Allergies clarithromycin [CLARITHROMYCIN] Allergy (Intermediate, Verified 02/08/23 10:48) Rash hydrochlorothiazide [HYDROCHLOROTHIAZIDE] Allergy (Intermediate, Verified 02/08/23 10:48) Rash Sulfa (Sulfonamide Antibiotics) Allergy (Intermediate, Verified 02/08/23 10:48) Rash tramadol [TRAMADOL] Allergy (Intermediate, Verified 02/08/23 10:48) Rash, vomiting moexipril [From Univasc] Allergy (Mild, Verified 02/08/23 10:48) lip deviation valsartan [From Diovan] Allergy (Mild, Verified 02/08/23 10:48) Rash acetaminophen [From Vicodin] Adverse Reaction (Intermediate, Verified 02/08/23 10:48) Vomiting hydrocodone [From Vicodin] Adverse Reaction (Intermediate, Verified 02/08/23 10:48) Vomiting oxycodone [From Percocet] Adverse Reaction (Mild, Verified 02/08/23 10:48) vomiting Medication List - Last Reconciled 02/08/23 by Hayde Marvin MD acetaminophen 500 mg PO Q6H PRN 30 days atorvastatin 10 mg PO DAILY fenofibrate 54 mg PO DAILY fluticasone propionate 50 mcg/actuation 1 spray intranasal BID 30 days levothyroxine 50 mcg PO DAILY 90 days losartan 100 mg PO DAILY bnqxtddtgwob-xgpn-vfics acid 18-400 mg-mcg (Centrum) 1 tab PO DAILY naproxen 500 mg PO BID PRN 5 days pantoprazole 40 mg PO DAILY 90 days polyethylene glycol 3350 (Miralax) 17 grams PO DAILY PRN 30 days verapamil ER 240 mg PO DAILY 90 days Tobacco use date assessed: 10/07/22 Fall risk assessment: No Falls in past year Last assessed Fall Risk: 02/08/23 Dental Screening Dental Screen Date: 02/08/23 Did you have a dental visit in the last 12 months?: No Did you have a dental problem in the last 6 months where you did not have access to dental care?: No Was dental information given to patient?: Patient has dentist HPI HPI Comments History of Present Illness Details This is a 77-year-old female with hypertension, mixed hyperlipidemia, chronic GERD and chronic constipation as well as hypothyroidism that comes today for follow-up on her conditions. Was positive for COVID-19 01/25/2023. Still feels fatigue and tired. Blood pressure stable. Lipid panel will be order. GERD and constipation has been stable with medications. Also TSH will be order. No chest pain or shortness of breath. [facility] Medical History Anemia Cataracts, bilateral Chronic GERD Chronic pain Essential hypertension Hypertension Hypothyroidism Left hip pain Mixed hyperlipidemia Numbness and tingling Polyarthralgia Postmenopausal Productive cough Right hip pain Vertigo Surgical History History of cholecystectomy History of esophagogastroduodenoscopy (EGD) History of total abdominal hysterectomy and bilateral salpingo-oophorectomy Hx of colonoscopy Hx of eye surgery Status post laser ablation of incompetent vein Family History Father Alzheimer disease Mother Stroke Other No family history of cancer Social History Household Members: None Housing: Apartment Are you a primary health care legal assistant to a significant other at home: No Do you presently have visiting nurse or other home services: No Alcohol intake: never Patient Tobacco Use Status: Never used Tobacco e-Cigarette/Vaping Use: Never Used Second Hand Smoke Exposure: No service: No Current occupational status: retired Cognitive needs: No Hearing needs: No Vision needs: Yes Questionnaire Thrive Questionnaire Date Thrive assessed: 10/07/22 MARCO-7 AMB Questionnaire MARCO-7 Date MARCO - 7 assessed: 10/07/22 Source: Developed by Drs. Kendrick Mari, Mandy Willingham, Jasson Theodore and colleagues, with an educational douglas from [employer]. Review of Systems Const All systems reviewed & are unremarkable except as noted in HPI and below Eyes Reports no additional complaints, Denies change in vision and Denies other visual disturbances Card Denies chest pain at rest, Denies chest pain with activity, Denies edema, Denies irregular heart rhythm, Denies claudication, Denies dyspnea, Denies dyspnea on exertion, Denies orthopnea, Denies paroxysmal nocturnal dyspnea and Denies slow heart rate Resp Denies cough, Denies dyspnea and Denies dyspnea on exertion GI Denies abdominal pain, Denies change in bowel habits, Denies excessive flatus, Denies nausea and Denies vomiting Denies urinary incontinence, Denies urinary hesitancy and Denies urinary urgency Musc Denies abnormal gait, Denies atrophy, Denies deformity and Denies limited range of motion Skin/Breast Denies bleeding lesions, Denies changing lesions and Denies rash Neuro Denies abnormal gait and Denies lack of coordination Physical exam (Primary Care) Vital Signs: Last Vital Signs BP 130/74 02/08/23 10:31 BMI result Body Mass Index 33.3 Tobacco/Smoking Status: Tobacco use Status Tobacco use date assessed 10/07/22 02/08/23 10:31 Patient Tobacco Use Status Never used Tobacco 02/08/23 10:31 e-Cigarette/Vaping Use Never Used 02/08/23 10:31 Thrive Assessment: Date of Thrive Assessment Date Thrive assessed 10/07/22 02/08/23 10:31 Eyes General: appearance normal, both eyes and all related structures Eyelids: Yes eyelids normal Conjunctivae: conjunctivae normal Neck Neck: Yes normal visual inspection and Yes supple Resp Effort & Inspection: normal respiratory effort Auscultation: clear to auscultation bilaterally Cardio Jugular venous distension: no JVD Rate: regular rate Rhythm: regular rhythm Heart sounds: S1 normal heart sound present and S2 normal heart sound present Extrem General: Yes full ROM Assessment and Plan Assessment & Plan (1) Essential hypertension: Code(s): I10 - Essential (primary) hypertension Plan: Continue losartan. Blood pressure goal is equal or less than 130/80. (2) Mixed hyperlipidemia: Code(s): E78.2 - Mixed hyperlipidemia Plan: Continue statins and fibrates. Repeat lipid panel. (3) Hypothyroidism: Code(s): E03.9 - Hypothyroidism, unspecified Qualifiers: Hypothyroidism type: unspecified Qualified Code(s): E03.9 - Hypothyroidism, unspecified Plan: Continue levothyroxine. Repeat TSH. (4) Chronic constipation: Comment: Continue Miralax prn Code(s): K59.09 - Other constipation Plan: Continue MiraLax as needed. (5) Chronic GERD: Code(s): K21.9 - Gastro-esophageal reflux disease without esophagitis Plan: Continue PPIs Orders: Orders Comprehensive [place]. Panel Fast 4 Months K59.09 - Other constipation Lipid Panel 4 Months E78.5 - Hyperlipidemia, unspecified Coding Level of Care Code Est Pt Level 4 (15522) Diagnoses Essential hypertension I10 Mixed hyperlipidemia E78.2 Hypothyroidism E03.9 Hypothyroidism type: unspecified Chronic constipation K59.09 Chronic GERD K21.9 Time Spent (min) 23
[2023-02-08 10:31] VITALS: BP 130/74; BMI 33.3
== END 2023-02-08 11:02 | disposition home or self-care (01) ==
PROVIDERS: PCP Internal Medicine; Visit Provider Internal Medicine
DX: I10 Essential (primary) hypertension (principal); E03.9 Hypothyroidism, unspecified; K21.9 Gastro-esophageal reflux disease without esophagitis; E78.2 Mixed hyperlipidemia; K59.09 Other constipation
CPT/HCPCS: 99214

== ENCOUNTER 2023-02-21 10:40 | Outpatient (AMB) | payer OTHER, SELFPAY ==
--- NOTE | 2023-02-21 11:05 | MHC.OFFVIS ---
Intake Vital Signs 02/21/23 11:06 Height 4 ft 11 in Weight 165 lb 12.602 oz BMI 33.5 BP 126/78 Blood Pressure Location Lt brachial Position Sitting Pulse 68 Pulse Source Pulse Oximeter Intake Visit Reasons: 3 MON FUP AFTER ECHO Intake Note: 3 month follow up after echocardigram. Supervisor Denture Department Required: Yes Supervisor Denture Department Language: Lead Database Administrator Name: Estela [id number]- [employer] Accompanied by: Self / Same As Patient Allergies clarithromycin [CLARITHROMYCIN] Allergy (Intermediate, Verified 02/21/23 11:11) Rash hydrochlorothiazide [HYDROCHLOROTHIAZIDE] Allergy (Intermediate, Verified 02/21/23 11:11) Rash Sulfa (Sulfonamide Antibiotics) Allergy (Intermediate, Verified 02/21/23 11:11) Rash tramadol [TRAMADOL] Allergy (Intermediate, Verified 02/21/23 11:11) Rash, vomiting moexipril [From Univasc] Allergy (Mild, Verified 02/21/23 11:11) lip deviation valsartan [From Diovan] Allergy (Mild, Verified 02/21/23 11:11) Rash acetaminophen [From Vicodin] Adverse Reaction (Intermediate, Verified 02/21/23 11:11) Vomiting hydrocodone [From Vicodin] Adverse Reaction (Intermediate, Verified 02/21/23 11:11) Vomiting oxycodone [From Percocet] Adverse Reaction (Mild, Verified 02/21/23 11:11) vomiting Medication List - Last Reconciled 02/21/23 by Flynn Watkins MD acetaminophen 500 mg PO Q6H PRN 30 days atorvastatin 10 mg PO DAILY fenofibrate 54 mg PO DAILY fluticasone propionate 50 mcg/actuation 1 spray intranasal BID 30 days levothyroxine 50 mcg PO DAILY 90 days losartan 100 mg PO DAILY kxzzyfnhamgl-bouz-brkxr acid 18-400 mg-mcg (Centrum) 1 tab PO DAILY naproxen 500 mg PO BID PRN 5 days pantoprazole 40 mg PO DAILY 90 days polyethylene glycol 3350 (Miralax) 17 grams PO DAILY PRN 30 days verapamil ER 240 mg PO DAILY 90 days HPI HPI Comments History of Present Illness Details 77-year-old female who is here after recent ER visit for new patient visit. She was in the emergency department with significantly elevated blood pressure and palpitations. She had mildly abnormal high sensitive troponin levels and these were felt to be due to elevated blood pressures. Her blood pressure improved and she was discharged home and was advised to see us in follow-up. She said she was getting some palpitations but did not have any chest discomfort shortness of breath. Her blood pressure control is reasonable currently and she has not had any further palpitations. Appears to be compliant with medications. She is denying any other issues currently. She is taking losartan 100 mg and verapamil 240 mg daily. 02/21/23: She returns for follow-up. She has been doing well. She had echocardiography in November 2022 which showed normal LV function of 60 65% and normal global longitudinal strain value of-21%. Normal RV function. No significant valvular pathology. Borderline dilated ascending aorta 3.4 cm. She has been taking medication regularly. She continues to smoke half a pack per day. We discussed and she previously took Chantix but could not tolerated due to hallucinations. [facility] Medical History Anemia Cataracts, bilateral Chronic GERD Chronic pain Essential hypertension Hypertension Hypothyroidism Left hip pain Mixed hyperlipidemia Numbness and tingling Polyarthralgia Postmenopausal Productive cough Right hip pain Vertigo Surgical History Hx of eye surgery Status post laser ablation of incompetent vein History of esophagogastroduodenoscopy (EGD) Hx of colonoscopy History of total abdominal hysterectomy and bilateral salpingo-oophorectomy History of cholecystectomy Family History Father Alzheimer disease Mother Stroke Other No family history of cancer Social History Household Members: None Housing: Apartment Are you a primary healthcare financial analyst to a significant other at home: No Do you presently have visiting nurse or other home services: No Alcohol intake: never Patient Tobacco Use Status: Never used Tobacco e-Cigarette/Vaping Use: Never Used Second Hand Smoke Exposure: No service: No Current occupational status: retired Cognitive needs: No Hearing needs: No Vision needs: Yes Review of Systems Const Denies weakness ENT Denies dizziness Card Denies chest pain, Denies chest pain with activity, Denies syncope, Denies rapid heart rate, Denies pedal edema, Denies edema, Denies leg edema, Denies lightheadedness, Denies palpitations, Denies dyspnea, Denies dyspnea on exertion and Denies orthopnea Resp Denies cough, Denies dyspnea and Denies dyspnea on exertion GI Denies hematochezia and Denies change in stool character Musc Denies abnormal gait, Denies muscle cramps, Denies muscle weakness, Denies numbness, Denies radiating pain into limb and Denies tingling Neuro Denies abnormal gait, Denies dizziness, Denies syncope, Denies numbness, Denies tingling and Denies weakness Endo Denies palpitations Physical Exam Vital Signs: Last Vital Signs Pulse 68 02/21/23 11:06 BP 126/78 02/21/23 11:06 BMI result Body Mass Index 33.5 GENERAL APPEARANCE: in no acute distress, pleasant. NECK: no carotid bruit, no jugular venous distention. SKIN: no suspicious lesions, warm and dry. HEART: no murmurs, regular rate and rhythm. LUNGS: clear to auscultation bilaterally. ABDOMEN: soft, nontender. EXTREMITIES: no edema. PERIPHERAL PULSES: equal. NEUROLOGIC: No gross deficits, AAO X 3 Results Reviewed Results Reviewed: 12/07/22: - Normal left ventricular size and systolic function. There is mildly increased left ventricular wall thickness. The visually estimated ejection fraction is between 60-65%. - E/E prime ratio is between 8 and 15 consistent with indeterminate filling pressures. Normal GLS -21 %. - Normal right ventricular cavity size and systolic function. - The left atrium is mildly dilated. The right atrium is moderately dilated. - There is mild dilatation of the ascending aorta measuring 3.40 cm. Assessment & Plan Assessment & Plan (1) Essential hypertension: Code(s): I10 - Essential (primary) hypertension (2) Mixed hyperlipidemia: Code(s): E78.2 - Mixed hyperlipidemia (3) Tobacco abuse: Code(s): Z72.0 - Tobacco use Plan Pleasant 77-year-old female who is here for follow-up. Blood pressure control is good currently on losartan 100 mg and verapamil 240 mg daily. She should have fasting lipid panel once a year. She is currently taking atorvastatin 10 mg and fenofibrate 54 mg daily. She continues to smoke and is currently smoking half a pack per day. She could not tolerate Chantix in the past. I have advised her to try bupropion. Will send it to her pharmacy. Thank you for allowing me to participate in the care of your patient. Please feel free to contact me if you have any questions. Medications: New bupropion HCl (Wellbutrin SR) 150 mg orally Take once a day x 3 days, if no side effects then increase to BID.; 60 tabs 3RF Z72.0 - Tobacco use Coding Level of Care Code Est Pt Level 4 (40308) Diagnoses Essential hypertension I10 Mixed hyperlipidemia E78.2 Tobacco abuse Z72.0
[2023-02-21 11:06] VITALS: BP 126/78; PULSE 68; BMI 33.5
== END 2023-02-21 11:23 | disposition home or self-care (01) ==
PROVIDERS: PCP Internal Medicine; Referring Provider Internal Medicine; Visit Provider Internal Medicine Cardiovascular Disease
DX: I10 Essential (primary) hypertension (principal); E78.2 Mixed hyperlipidemia; Z72.0 Tobacco use
CPT/HCPCS: 99214

== ENCOUNTER → 2023-02-21 10:40 | Outpatient (BNVA) | payer OTHER, SELFPAY | PROVIDERS: PCP Internal Medicine; Referring Provider Internal Medicine; Visit Provider Internal Medicine Cardiovascular Disease | DX: I10 Essential (primary) hypertension (principal); E78.2 Mixed hyperlipidemia; Z72.0 Tobacco use; Z79.899 Other long term (current) drug therapy | CPT/HCPCS: 99212 ==

== ENCOUNTER 2023-03-22 08:41 | Emergency (ER) | payer OTHER, SELFPAY ==
[2023-03-22 09:05] VITALS: BP 117/60; BP 129/45; PULSE 55; PULSE 63; RESP 16; TEMP 36.7; O2SAT 93; O2SAT 97; BMI 30.8
--- NOTE | 2023-03-22 09:38 | ED.GENADULT ---
HPI - General Adult General Chief complaint: General Medical Stated complaint: cp, cough Time Seen by Provider: 03/22/23 08:49 Source: patient, family (Daughter) and e business consultant Mode of arrival: EMS History of Present Illness HPI narrative: 77-year-old female who arrives via EMS and states that she stood up from a sitting position to go to the bathroom and then began to feel very warm and nauseous and passed out . She reports recent coughing and states that she did have some shortness of breath with this episode but otherwise denies any diarrhea or dysuria. The daughter who is at bedside states that they did experience some difficulty in understanding the patient who otherwise denies any use of blood thinners. Related Data Home Medications Medication Instructions Recorded Confirmed multivitamin-ferrous 1 tab PO DAILY 05/17/22 02/21/23 fumarate-folic acid 18 mg-400 mcg tablet (Centrum) Previous Rx's Medication Instructions Recorded fenofibrate 54 mg tablet 54 mg PO DAILY #90 tabs 03/29/22 fluticasone propionate 50 1 spray intranasal BID 30 days #16 03/29/22 mcg/actuation nasal grams spray,suspension levothyroxine 50 mcg capsule 50 mcg PO DAILY 90 days #90 caps 03/29/22 losartan 100 mg tablet 100 mg PO DAILY #90 tabs 03/29/22 pantoprazole 40 mg tablet,delayed 40 mg PO DAILY 90 days #90 tabs 03/29/22 release verapamil 240 mg tablet,extended 240 mg PO DAILY 90 days #90 tabs 03/29/22 release acetaminophen 500 mg tablet 500 mg PO Q6H PRN fever 30 days 10/10/22 #120 tabs naproxen 500 mg tablet 500 mg PO BID PRN pain 5 days #10 11/04/22 tabs polyethylene glycol 3350 17 17 g PO DAILY PRN constipation 30 01/13/23 gram/dose oral powder (Miralax) days #510 grams atorvastatin 10 mg tablet 10 mg PO DAILY #90 tabs 02/11/23 bupropion HCl 150 mg tablet,12 hr 150 mg PO .COMPLEX #60 tabs 02/21/23 sustained-release (Wellbutrin SR) Allergies Allergy/AdvReac Type Severity Reaction Status Date / Time clarithromycin Allergy Intermediate Rash Verified 02/21/23 11:11 [CLARITHROMYCIN] hydrochlorothiazide Allergy Intermediate Rash Verified 02/21/23 11:11 [HYDROCHLOROTHIAZIDE] Sulfa (Sulfonamide Allergy Intermediate Rash Verified 02/21/23 11:11 Antibiotics) tramadol [TRAMADOL] Allergy Intermediate Rash, Verified 02/21/23 11:11 vomiting moexipril [From Univasc] Allergy Mild lip Verified 02/21/23 11:11 deviation valsartan [From Diovan] Allergy Mild Rash Verified 02/21/23 11:11 acetaminophen [From Vicodin] AdvReac Intermediate Vomiting Verified 02/21/23 11:11 hydrocodone [From Vicodin] AdvReac Intermediate Vomiting Verified 02/21/23 11:11 oxycodone [From Percocet] AdvReac Mild vomiting Verified 02/21/23 11:11 Review of Systems Review of Systems: Pertinent positives and negatives as stated in HPI [facility] Past Medical History Source: nursing notes reviewed Medical History Cataracts, bilateral Chronic GERD Postmenopausal Numbness and tingling Anemia Productive cough Polyarthralgia Mixed hyperlipidemia Vertigo Essential hypertension Hypothyroidism Right hip pain Left hip pain Hypertension Chronic pain Surgical History Hx of eye surgery Status post laser ablation of incompetent vein History of esophagogastroduodenoscopy (EGD) Hx of colonoscopy History of total abdominal hysterectomy and bilateral salpingo-oophorectomy History of cholecystectomy Family History Family History Father Alzheimer disease Mother Stroke Other No family history of cancer Social History Social History Household Members: None Housing: Apartment Are you a primary career services officer to a significant other at home: No Do you presently have visiting nurse or other home services: No Alcohol intake: never Patient Tobacco Use Status: Never used Tobacco e-Cigarette/Vaping Use: Never Used Second Hand Smoke Exposure: No Advance Directives: Yes Advance Directives Information Provided: Yes Advance Directives on File: No service: No Current occupational status: retired Cognitive needs: No Hearing needs: No Vision needs: Yes Physical Exam ED Vital Signs: Vital Signs - 24 hr 03/22/23 09:05 03/22/23 09:46 10/10/23 09:46 Temperature 98.0 F Pulse Rate 55 56 57 Respiratory Rate 16 Blood Pressure 129/45 L 144/54 H 143/49 H Pulse Oximetry 93 Oxygen Delivery Method Room Air 03/22/23 09:47 03/22/23 10:25 Temperature 98.2 F Pulse Rate 57 56 Respiratory Rate 16 Blood Pressure 143/51 H 134/57 L Pulse Oximetry 96 Oxygen Delivery Method Room Air BMI result Body Mass Index 30.8 VITAL SIGNS: Reviewed. GENERAL: Well developed, well nourished, in no acute distress. HEAD: Normocephalic/atraumatic EYES: PERRLA, EOMI EARS: Ext canals without abnormality NOSE: Nares patent bilateral OROPHARYNX: no oral lesions noted, posterior pharynx clear NECK: Supple, no adenopathy LUNGS: Normal breath sounds. No adventitious sounds or accessory muscle use. SpO2<93> CARDIOVASCULAR: Regular rate and rhythm without noted murmurs, no JVD or lower extremity edema. ABDOMEN: Soft, non-tender, non-distended with bowel sounds. PELVIS: Stable, nontender MUSCULOSKELETAL: No tenderness, deformities, or effusions noted on gross inspection. EXTREMITIES: No cyanosis, clubbing or edema. SKIN: Inspection of the skin reveals no rashes NEUROLOGIC: Alert and oriented x 4. Strength and sensation to light touch were grossly intact x 4, no facial asymmetry, no pronator drift, cranial nerves 2-12 are grossly intact. Medications Administered Discontinued Medications Generic Name Dose Route Start Last Admin Trade Name Freq PRN Reason Stop Dose Admin Al Hydroxide/Mg Hydroxide 30 ml 03/22/23 08:51 03/22/23 10:23 Magnesium Hydrox/Alum Hydrox 30 Ml Oral.Susp PO 03/22/23 08:52 30 ml ONCE ONE Administration Lidocaine HCl 10 ml 03/22/23 08:51 03/22/23 10:23 Lidocaine Hcl Viscous 2 % 15 Ml Solution MUCOUS MEM 03/22/23 08:52 10 ml ONCE ONE Administration Medical Decision Making Medical Decision Making [facility] Narrative: 0941: 77-year-old female with history and clinical presentation, DDX: Syncope secondary to possible infection, anemia, electrolyte derangements, arrhythmia, volume depletion, viral illness. Patient has no focal deficits in suspect likely vasovagal syncope. - EKG, orthostatics, labs, urine, viral testing I reviewed all investigations and hematologic indices are negative for evidence of infection as there is no leukocytosis or left shift, patient has a chronically stable low platelet count and no anemia. Coagulation studies are within normal limits. Chemistry indices are without evidence of MICHELLE your electrolytes derangements. There is a small elevation in transaminases that is likely associated with patient's underlying fatty liver as patient has no right upper quadrant pain. Troponin is undetectable and there are no acute changes on EKG. On evaluation of the urinalysis this appears to be mildly positive, on re-evaluation patient states that she is feeling much better and agrees that she feels she may have been having some symptoms of urinary tract infection. Patient is otherwise discharged my interpretation is that she experienced a vasovagal syncopal episode without head strike likely secondary to urinary tract infection. Differential Diagnosis Differential Diagnoses: The differential diagnosis associated with the presentation includes Please see the discussion above Admission/Observation Consideration of admission/observation: Escalation of care including admission/observation considered Please see the discussion above Lab Data MDM Lab Attestation statement: I reviewed the patient's lab results. Please see the discussion above 03/22/23 09:42 03/22/23 09:42 Labs: Lab Results 03/22/23 03/22/23 Range/Units 09:42 12:03 WBC 7.5 (4.8-10.8) X10*3/uL RBC 4.04 L (4.20-5.50) X10*6/uL Hgb 12.1 (12.0-16.0) g/dl Hct 37.5 (37.0-47.0) % MCV 92.8 (80.0-98.0) fL MCH 30.0 (27.0-33.0) pg MCHC 32.3 (31.0-35.0) g/dl RDW 13.5 (11.0-16.0) % Plt Count 154 L (160-400) X10*3/uL MPV 12.1 (9.4-12.3) fL Immature Gran % (Auto) 0.4 (0.0-0.4) % Neut % (Auto) 69.4 (45-73) % Lymph % (Auto) 22.8 (20-40) % [place] % (Auto) 5.8 (2-11) % Eos % (Auto) 0.9 (0-4) % Baso % (Auto) 0.7 (0-2) % Lymph # (Auto) 1.7 (1.2-4.9) X10*3/uL [place] # (Auto) 0.4 (0.1-1.2) X10*3/uL Eos # (Auto) 0.1 (0.0-0.4) X10*3/uL Baso # (Auto) 0.1 (0.0-0.2) X10*3/uL Abs Immat Gran (auto) 0.03 (0.00-0.03) X10*3/uL Absolute Neuts (auto) 5.2 (2.0-8.3) x10*3/uL Absolute Nucleated RBC 0.000 (0.0-0.012) X10*3/uL Nucleated RBC % (auto) 0.0 (0.0-0.2) /100WBC PT 11.7 (11.1-13.3) SEC INR 1.0 (0.9-1.1) Sodium 142 (135-145) mmol/L Potassium 4.0 (3.3-5.1) mmol/L Chloride 108 (96-108) mmol/L Carbon Dioxide 22 (22-29) mmol/L Anion Gap 16 (12-20) BUN 20 H (9-16) mg/dL Creatinine 0.87 (0.5-1.4) mg/dL Estim Creat Clear Calc 53.0 Estimated GFR > 60 Random Glucose 149 H (60-115) mg/dL Calcium 9.2 (8.4-10.2) mg/dL Total Bilirubin 0.7 (0.0-1.0) mg/dL AST 76 H (5-31) U/L ALT 49 H (0-31) U/L Alkaline Phosphatase 77 (39-117) U/L Troponin I High Sens < 2.7 D (<3.5-17.0) ng/L Total Protein 7.1 (6.5-8.0) g/dL Albumin 4.2 (3.5-5.0) g/dL Urine Color Yellow Urine Appearance Cloudy Urine pH 5.5 (5.0-9.0) Ur Specific [place] 1.015 (1.005-1.025) Urine Protein Negative (Neg-Trace) mg/dL Urine Glucose (UA) Negative (Negative) mg/dL Urine Ketones Negative (Negative) mg/dL Urine Blood Negative (Negative) Urine Nitrite Negative (Negative) Ur Leukocyte Esterase Small (1+) H (Negative) Urine RBC 0-2 (0-2) /HPF Urine WBC 0-5 (0-5) /HPF Ur Squamous Epith Cells 6-10 (0-2) /HPF Urine Bacteria 1+ (None Seen) Hyaline Casts 0-2 (0-2) /LPF COVID-19 (BERNICE) Negative (Negative) COVID-19 Clin Com See Note Influenza Type A (MAGGIE) Negative (Negative) Influenza Type B (MAGGIE) Negative (Negative) Influenza A & B Note See Note Independent Interpretation I performed an independent interpretation of an: EKG Interpretation: Sinus bradycardia, HR -58, no STEMI, MS/QRS/QTC are within normal limits. External Record Review External record reviewed: Outpatient record, Prior outpatient labs and Prior outpatient radiology Chronic Conditions Patient?s care impacted by: Hypertension Critical Care Time Critical Care Time Critical Care Time: Yes Total Critical Care Time: 30 Attestation: I personally attest to this time spent taking care of the patient. Discharge Plan Discharge Clinical Impression: Syncope, vasovagal, Acute UTI Patient Disposition: Home, Self-Care Instructions: Urinary Tract Infection in Women (ED), Syncope (ED), Urinary Tract Infection in Older Adults (ED) Additional Instructions: 1. Reanudar todos los medicamentos caseros seg?n lo recetado. 2. Complete el tratamiento con antibi?ticos seg?n lo prescrito. 3. Tank un seguimiento con brown m?dico de atenci?n primaria en los pr?ximos 1 o 2 d?as. Regrese a la emily de emergencias si los s?ntomas empeoran. 1. Resume all home medications as prescribed. 2. Please complete the course of antibiotics as prescribed. 3. Please follow-up with your primary care doctor in the next 1-2 days. Return to the ER for any worsening symptoms. Prescriptions: No Action acetaminophen 500 mg tablet 500 mg PO Q6H PRN (Reason: fever) 30 Days Qty: 120 3RF naproxen 500 mg tablet 500 mg PO BID PRN (Reason: pain) 5 Days Qty: 10 2RF atorvastatin 10 mg tablet 10 mg PO DAILY Qty: 90 3RF Centrum 18-400 mg-mcg Tablet 1 tab PO DAILY fenofibrate 54 mg tablet 54 mg PO DAILY Qty: 90 3RF fluticasone propionate 50 mcg/actuation spray,suspension 1 spray intranasal BID 30 Days Qty: 16 2RF Rx Instructions: administer into each nostril levothyroxine 50 mcg capsule 50 mcg PO DAILY 90 Days Qty: 90 3RF losartan 100 mg tablet 100 mg PO DAILY Qty: 90 3RF pantoprazole 40 mg tablet,delayed release (DR/EC) 40 mg PO DAILY 90 Days Qty: 90 3RF verapamil 240 mg tablet extended release 240 mg PO DAILY 90 Days Qty: 90 3RF polyethylene glycol 3350 [Miralax] 17 gram/dose powder 17 g PO DAILY PRN (Reason: constipation) 30 Days Qty: 510 3RF bupropion HCl [Wellbutrin SR] 150 mg tablet sustained-release 12 hr 150 mg PO .COMPLEX Qty: 60 3RF Rx Instructions: 150 mg orally Take once a day x 3 days, if no side effects then increase to BID.; Referrals: Hayde Richter MD [Primary Care Provider] - Print Language: Latvian
[2023-03-22 09:46] VITALS: BP 143/49; BP 144/54; PULSE 56; PULSE 57
[2023-03-22 09:47] VITALS: BP 143/51; PULSE 57
[2023-03-22 10:25] VITALS: BP 134/57; PULSE 56; RESP 16; TEMP 36.8; O2SAT 96
--- NOTE | 2023-03-22 10:26 | PC.NURSE ---
alert and oriented, respirations even and unlabored. medicated per the MAR
[2023-03-22 14:23] VITALS: BP 143/62; PULSE 64; RESP 16; O2SAT 96
== END 2023-03-22 14:32 | disposition home or self-care (01) ==
PROVIDERS: Emergency Provider Student in an Organized Health Care Education/Training Program; PCP Internal Medicine
DX: R55 Syncope and collapse (principal); N39.0 Urinary tract infection, site not specified; R07.89 Other chest pain; R05.9 Cough, unspecified; Z11.52 Encounter for screening for COVID-19; Z20.822 Contact with and (suspected) exposure to COVID-19; Z79.899 Other long term (current) drug therapy
CPT/HCPCS: 36415; 80053; 81001; 84484; 85025; 85610; 87086; 87502; 87635; 93005; 99283; 99285

== ENCOUNTER 2023-03-29 10:56 | Outpatient (AMB) | payer OTHER, SELFPAY ==
--- NOTE | 2023-03-29 10:57 | A.OFFPC_ITS ---
Vital Signs 03/29/23 10:58 Height 4 ft 11 in Weight 165 lb BMI 33.3 BP 130/74 Blood Pressure Location Lt brachial Position Sitting Pulse 66 Pulse Source Pulse Oximeter Pulse Oximetry (%) 97 Oxygen Delivery Method Room Air Intake Visit Reasons: [place] [facility] [facility] [place] Int[place] Note: [place] [facility] [place]23 follow up fainted, UTI Ink Grinder Required: No Accompanied by: Self / Same As Patient Allergies clarithromycin [CLARITHROMYCIN] Allergy (Intermediate, Verified 03/29/23 11:15) Rash hydrochlorothiazide [HYDROCHLOROTHIAZIDE] Allergy (Intermediate, Verified 03/29/23 11:15) Rash Sulfa (Sulfonamide Antibiotics) Allergy (Intermediate, Verified 03/29/23 11:15) Rash tramadol [TRAMADOL] Allergy (Intermediate, Verified 03/29/23 11:15) Rash, vomiting moexipril [From Univasc] Allergy (Mild, Verified 03/29/23 11:15) lip deviation valsartan [From Diovan] Allergy (Mild, Verified 03/29/23 11:15) Rash acetaminophen [From Vicodin] Adverse Reaction (Intermediate, Verified 03/29/23 11:15) Vomiting hydrocodone [From Vicodin] Adverse Reaction (Intermediate, Verified 03/29/23 11:15) Vomiting oxycodone [From Percocet] Adverse Reaction (Mild, Verified 03/29/23 11:15) vomiting Medication List - Last Reconciled 03/29/23 by Hayde Marvin MD acetaminophen 500 mg PO Q6H PRN 30 days atorvastatin 10 mg PO DAILY bupropion HCl (Wellbutrin SR) 150 mg orally Take once a day x 3 days, if no side effects then increase to BID.; fenofibrate 54 mg PO DAILY fluticasone propionate 50 mcg/actuation 1 spray intranasal BID 30 days levothyroxine 50 mcg PO DAILY 90 days losartan 100 mg PO DAILY phwvupkzbfow-louw-ersas acid 18-400 mg-mcg (Centrum) 1 tab PO DAILY naproxen 500 mg PO BID PRN 5 days pantoprazole 40 mg PO DAILY 90 days polyethylene glycol 3350 (Miralax) 17 grams PO DAILY PRN 30 days verapamil ER 240 mg PO DAILY 90 days Tobacco use date assessed: 10/07/22 Fall risk assessment: 1 Fall in past year Last assessed Fall Risk: 03/29/23 Dental Screening Dental Screen Date: 03/29/23 Did you have a dental visit in the last 12 months?: No Did you have a dental problem in the last 6 months where you did not have access to dental care?: No Was dental information given to patient?: Patient has dentist HPI HPI Comments History of Present Illness Details This is a 77-year-old female with hypertension, hypothyroidism, mixed hyperlipidemia and chronic GERD that comes today as hospital discharge follow-up due to acute urinary tract infection. Patient went or regionally due to syncope because she doubled the dose of verapamil and her blood pressure was low as well as her heart rate. Labs show no significant abnormality except a UTI. She completed antibiotics and has no symptoms. Her urine is clear today. Discharge date was 03/22/2023. Blood pressure within normal limits. Last TSH was normal. Cholesterol and triglycerides have been well control. GERD stable with medications. [facility] Medical History (Updated 03/29/23 @ 11:46 by Hayde Marvin MD) Cataracts, bilateral Chronic GERD Postmenopausal Numbness and tingling Anemia Productive cough Polyarthralgia Mixed hyperlipidemia Vertigo Essential hypertension Hypothyroidism Right hip pain Left hip pain Hypertension Chronic pain Surgical History Hx of eye surgery Status post laser ablation of incompetent vein History of esophagogastroduodenoscopy (EGD) Hx of colonoscopy History of total abdominal hysterectomy and bilateral salpingo-oophorectomy History of cholecystectomy Family History Father Alzheimer disease Mother Stroke Other No family history of cancer Social History Household Members: None Housing: Apartment Are you a primary health care manager to a significant other at home: No Do you presently have visiting nurse or other home services: No Alcohol intake: never Patient Tobacco Use Status: Never used Tobacco e-Cigarette/Vaping Use: Never Used Second Hand Smoke Exposure: No service: No Current occupational status: retired Cognitive needs: No Hearing needs: No Vision needs: Yes Questionnaire Thrive Questionnaire Date Thrive assessed: 10/07/22 MARCO-7 AMB Questionnaire MARCO-7 Date MARCO - 7 assessed: 10/07/22 Source: Developed by Drs. Kendrick Mari, Mandy Willingham, Jasson Theodore and colleagues, with an educational douglas from [employer]. Review of Systems Const All systems reviewed & are unremarkable except as noted in HPI and below Eyes Reports no additional complaints, Denies change in vision and Denies other visual disturbances Card Denies chest pain at rest, Denies chest pain with activity, Denies edema, Denies irregular heart rhythm, Denies claudication, Denies dyspnea, Denies dyspnea on exertion, Denies orthopnea, Denies paroxysmal nocturnal dyspnea and Denies slow heart rate Resp Denies cough, Denies dyspnea and Denies dyspnea on exertion GI Denies abdominal pain, Denies change in bowel habits, Denies excessive flatus, Denies nausea and Denies vomiting Denies urinary incontinence, Denies urinary hesitancy and Denies urinary urgency Musc Denies abnormal gait, Denies atrophy, Denies deformity and Denies limited range of motion Skin/Breast Denies bleeding lesions, Denies changing lesions and Denies rash Neuro Denies abnormal gait and Denies lack of coordination Physical exam (Primary Care) Vital Signs: Last Vital Signs Pulse 66 03/29/23 10:58 BP 130/74 03/29/23 10:58 Pulse Ox 97 03/29/23 10:58 Oxygen Delivery Method Room Air 03/29/23 10:58 BMI result Body Mass Index 33.3 Tobacco/Smoking Status: Tobacco use Status Tobacco use date assessed 10/07/22 03/29/23 11:02 Patient Tobacco Use Status Never used Tobacco 03/29/23 11:02 e-Cigarette/Vaping Use Never Used 03/29/23 11:02 Thrive Assessment: Date of Thrive Assessment Date Thrive assessed 10/07/22 03/29/23 11:02 Eyes General: appearance normal, both eyes and all related structures Eyelids: Yes eyelids normal Conjunctivae: conjunctivae normal Neck Neck: Yes normal visual inspection and Yes supple Resp Effort & Inspection: normal respiratory effort Auscultation: clear to auscultation bilaterally Cardio Jugular venous distension: no JVD Rate: regular rate Rhythm: regular rhythm Heart sounds: S1 normal heart sound present and S2 normal heart sound present Extrem General: Yes full ROM Office Procedures Flu Questionnaire Does the patient have a severe egg allergy?: No Does the patient have severe life threatening allergies?: No Does the patient have a fever or illness today?: No Has the patient ever had Guillain-[place] Syndrome?: No Has the patient ever had any past reaction to a flu shot?: No Results AMB Urinalysis, Automated UA Leukoctes 1 Des/uL Last Edit by Magdi Last, LORI on 03/29/23 11:29 UA Nitrite Negative Last Edit by Magdi Last, A on 03/29/23 11:29 UA Urobilinogen 0.2 mg/dL Last Edit by Magdi Last, A on 03/29/23 11: 29 UA Protein 0 mg/dL Last Edit by Magid Last, A on 03/29/23 11:29 UA pH 6.0 Last Edit by Magdi Last, A on 03/29/23 11:29 UA Blood 0 Danyel/uL Last Edit by Magdi Last, A on 03/29/23 11:29 UA Specific [place] 1.025 Last Edit by Magdi Last, Reginaldo on 03/29/23 11 :29 UA Ketone Negative Last Edit by Magdi Last, A on 03/29/23 11:29 UA Bilirubin 0 mg/dL Last Edit by Magdi Last, A on 03/29/23 11:29 UA Glucose 0 mg/dL Last Edit by Magdi Last, [facility] on 03/29/23 11:29 Immunizations flu vacc [id number] 6mos up(PF) 60 mcg(15 mcgx4)/0.5 mL IM syringe Performing Provider: Hayde Marvin MD Performing Location: [facility] Administered by: LORI Alas on 03/29/23 11:09 Dose Route Admin Location Dispensed Lot Number Expiration Date NDC Director Of [employer] 0.5 mL IM Left Deltoid 0.5 mL [id number] 12/11/23 91508-424-95 [employer] VIS Given Date VIS Provided VIS Publication Date 03/29/23 Single Vaccine 21 Eligibility Eligibility Date Funding Source Not [facility] Eligible 03/29/23 Private Results Reviewed Results Reviewed: Laboratory Last Values Urine pH (Auto) 6.0 03/29/23 11:26 Specific [place] (Auto) 1.025 03/29/23 11:26 Urine Protein (Auto) 0 mg/dL 03/29/23 11:26 Glucose (UA)(Auto) 0 mg/dL 03/29/23 11:26 Urine Ketones (Auto) Negative 03/29/23 11:26 Urine Blood (Auto) 0 Danyel/uL 03/29/23 11:26 Urine Nitrite (Auto) Negative 03/29/23 11:26 Urine Bilirubin (Auto) 0 mg/dL 03/29/23 11:26 Urine Urobilinogen (Auto) 0.2 mg/dL 03/29/23 11:26 Leukocyte Esterase (Auto) 1 Des/uL 03/29/23 11:26 Assessment and Plan Assessment & Plan (1) Hospital discharge follow-up: Code(s): Z09 - Encounter for follow-up examination after completed treatment for conditions other than malignant neoplasm Plan: Discharge date 03/22/2023 due to acute UTI. Patient finished antibiotics and has no symptoms. Urinalysis was within normal limits. (2) UTI (urinary tract infection): Code(s): N39.0 - Urinary tract infection, site not specified Plan: Completed antibiotics. No need for more antibiotics. (3) Essential hypertension: Code(s): I10 - Essential (primary) hypertension Plan: Continue verapamil. Blood pressure goal is equal or less than 130/80. (4) Chronic GERD: Code(s): K21.9 - Gastro-esophageal reflux disease without esophagitis Plan: Continue pantoprazole. (5) Mixed hyperlipidemia: Code(s): E78.2 - Mixed hyperlipidemia Plan: Continue statins and fibrates. (6) Hypothyroidism: Code(s): E03.9 - Hypothyroidism, unspecified Qualifiers: Hypothyroidism type: unspecified Qualified Code(s): E03.9 - Hypothyroidism, unspecified Plan: Continue levothyroxine. Orders: Orders Influenza [id number] Immunization Today Z23 - Encounter for immunization AMB Urinalysis Automated Today N39.0 - Urinary tract infection, site not specified Coding Level of Care Code TCM Mod MDM <= 7 Days Diagnoses Hospital discharge follow-up Z09 UTI (urinary tract infection) N39.0 Essential hypertension I10 Chronic GERD K21.9 Mixed hyperlipidemia E78.2 Hypothyroidism, unspecified type E03.9 Hypothyroidism type: unspecified Time Spent (min) 25
[2023-03-29 10:58] VITALS: BP 130/74; PULSE 66; O2SAT 97; BMI 33.3
== END 2023-03-29 12:18 | disposition home or self-care (01) ==
PROVIDERS: PCP Internal Medicine; Visit Provider Internal Medicine
DX: I10 Essential (primary) hypertension (principal); Z09 Encounter for follow-up examination after completed treatment for conditions other than malignant neoplasm; N39.0 Urinary tract infection, site not specified; K21.9 Gastro-esophageal reflux disease without esophagitis; E78.2 Mixed hyperlipidemia; E03.9 Hypothyroidism, unspecified; Z23 Encounter for immunization
CPT/HCPCS: 81003; 90471; 90686; 99214

== ENCOUNTER 2023-06-21 10:18 | Outpatient (AMB) | payer OTHER, SELFPAY ==
[2023-06-21 10:29] VITALS: BP 146/72; BMI 33.9
--- NOTE | 2023-06-21 10:29 | A.OFFPC_ITS ---
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: No Accompanied by: Self / Same As Patient Allergies clarithromycin [CLARITHROMYCIN] Allergy (Intermediate, Verified 06/21/23 10:44) Rash hydrochlorothiazide [HYDROCHLOROTHIAZIDE] Allergy (Intermediate, Verified 06/21/23 10:44) Rash Sulfa (Sulfonamide Antibiotics) Allergy (Intermediate, Verified 06/21/23 10:44) Rash tramadol [TRAMADOL] Allergy (Intermediate, Verified 06/21/23 10:44) Rash, vomiting moexipril [From Univasc] Allergy (Mild, Verified 06/21/23 10:44) lip deviation valsartan [From Diovan] Allergy (Mild, Verified 06/21/23 10:44) Rash acetaminophen [From Vicodin] Adverse Reaction (Intermediate, Verified 06/21/23 10:44) Vomiting hydrocodone [From Vicodin] Adverse Reaction (Intermediate, Verified 06/21/23 10:44) Vomiting oxycodone [From Percocet] Adverse Reaction (Mild, Verified 06/21/23 10:44) vomiting Medication List - Last Reconciled 06/21/23 by Hayde Marvin MD acetaminophen 500 mg PO Q6H PRN 30 days atorvastatin 10 mg PO DAILY bupropion HCl (Wellbutrin SR) 150 mg orally Take once a day x 3 days, if no side effects then increase to BID.; fenofibrate 54 mg PO DAILY fluticasone propionate 50 mcg/actuation 1 spray intranasal BID 30 days levothyroxine 50 mcg PO DAILY 90 days losartan 100 mg PO DAILY yzekqzyukwpi-vcjm-xpasi acid 18-400 mg-mcg (Centrum) 1 tab PO DAILY naproxen 500 mg PO BID PRN 5 days pantoprazole 40 mg PO DAILY 90 days polyethylene glycol 3350 (Miralax) 17 grams PO DAILY PRN 30 days verapamil ER 240 mg PO DAILY 90 days Tobacco use date assessed: 06/21/23 Fall risk assessment: 1 Fall in past year Last assessed Fall Risk: 06/21/23 Dental Screening Dental Screen Date: 06/21/23 Did you have a dental visit in the last 12 months?: No Did you have a dental problem in the last 6 months where you did not have access to dental care?: No Was dental information given to patient?: Patient has dentist HPI HPI Comments History of Present Illness Details This is a 77-year-old female with hypertension, mixed hyperlipidemia, chronic GERD and hypothyroidism that comes today follow-up on her conditions. Blood pressure borderline normal to elevated. Lipid panel and TSH will be order. GERD stable with medications. She also has constipation that has been stable with MiraLax as needed. Had an episode which she had to go to the ER due to syncope secondary to hypotension because she took verapamil twice by mistake. Blood pressure will be recheck in 3 weeks by nurse navigator. No chest pain or shortness of breath. [facility] Medical History Cataracts, bilateral Chronic GERD Postmenopausal Numbness and tingling Anemia Productive cough Polyarthralgia Mixed hyperlipidemia Vertigo Essential hypertension Hypothyroidism Right hip pain Left hip pain Hypertension Chronic pain Surgical History Hx of eye surgery Status post laser ablation of incompetent vein History of esophagogastroduodenoscopy (EGD) Hx of colonoscopy History of total abdominal hysterectomy and bilateral salpingo-oophorectomy History of cholecystectomy Family History Father Alzheimer disease Mother Stroke Other No family history of cancer Social History Household Members: None Housing: Apartment Are you a primary care analyst to a significant other at home: No Do you presently have visiting nurse or other home services: No Alcohol intake: never Patient Tobacco Use Status: Never used Tobacco e-Cigarette/Vaping Use: Never Used Second Hand Smoke Exposure: No service: No Current occupational status: retired Cognitive needs: No Hearing needs: No Vision needs: Yes Questionnaire PHQ-9 Over the last 2 weeks, how often have you been bothered by any of the following problems? 1. Little interest or pleasure in doing things: not at all 2. Feeling down, depressed, or hopeless: not at all 3. Trouble falling or staying asleep, or sleeping too much: not at all 4. Feeling tired or having little energy: not at all 5. Poor appetite or overeating: not at all 6. Feeling bad about yourself - or that you are a failure or have let yourself or your family down: not at all 7. Trouble concentrating on things, such as reading the newspaper or watching television: not at all 8. Moving or speaking so slowly that other people could have noticed. Or the opposite - being so fidgety or restless that you have been moving around a lot more than usual: not at all 9. Thoughts that you would be better off or of hurting yourself in some way: not at all Total score: 0 Depression Screening Interpretation: Negative Depression Screening Done: Yes 38817 - PHQ-9 Billing: Yes Source: Developed by Drs. Kendrick Mari, Mandy Willingham, Jasson Theodore and colleagues, with an educational douglas from [employer]. Thrive Questionnaire Date Thrive assessed: 06/21/23 I am a: Patient What is your living situation today?: I have a steady place to live Within the past 12 months, did the food you bought not last and you didn't have the money to get more?: Never true Within the past 12 months, did you worry whether your food would run out before you got money to buy more?: Never true Do you have trouble paying for medicines?: No Do you have trouble getting transportation to medical appointments?: No Do you have trouble paying your heating and electricity bill?: No Do you have trouble taking care of your child, family member or friend?: No Do you have trouble with day-to-day activities such as bathing, preparing meals, shopping, managing finances, etc.?: No Are you currently unemployed and looking for a job?: No Are you interested in more education?: No Please select the resources that you would like help with: None Currently or been in a relationship where the following occur: no concerns reported AUDIT C Alcohol Use Questionnaire (AUDIT-C) 1. How often do you have a drink containing alcohol?: Never Total Score: 0 MARCO-7 AMB Questionnaire MARCO-7 Date MARCO - 7 assessed: 06/21/23 Feeling nervous, anxious, or on edge: 0 = Not at all Not being able to stop or control worryin = Not at all Worrying too much about different things: 0 = Not at all Trouble relaxin = Not at all Being so restless that it is hard to sit still: 0 = Not at all Becoming easily annoyed or irritable: 0 = Not at all Feeling afraid as if something awful might happen: 0 = Not at all Total MARCO-7 score (0-4 normal; 5-9 mild; 10-14 moderate; 15-21 severe): 0 Source: Developed by Drs. Kendrick Mari, Mandy Willingham, Jasson Theodore and colleagues, with an educational douglas from [employer]. MARCO-7 Assessment Billing MARCO-7 Assessment Tool: MARCO-7 Assessment 74383 Review of Systems Const All systems reviewed & are unremarkable except as noted in HPI and below Eyes Reports no additional complaints, Denies change in vision and Denies other visual disturbances Card Denies chest pain at rest, Denies chest pain with activity, Denies edema, Denies irregular heart rhythm, Denies claudication, Denies dyspnea, Denies dyspnea on exertion, Denies orthopnea, Denies paroxysmal nocturnal dyspnea and Denies slow heart rate Resp Denies cough, Denies dyspnea and Denies dyspnea on exertion GI Denies abdominal pain, Denies change in bowel habits, Denies excessive flatus, Denies nausea and Denies vomiting Denies urinary incontinence, Denies urinary hesitancy and Denies urinary urgency Musc Denies abnormal gait, Denies atrophy, Denies deformity and Denies limited range of motion Skin/Breast Denies bleeding lesions, Denies changing lesions and Denies rash Neuro Denies abnormal gait, Denies behavioral changes and Denies lack of coordination Psych Denies behavioral changes Physical exam (Primary Care) Vital Signs: Last Vital Signs BP 146/72 H 06/21/23 10:29 BMI result Body Mass Index 33.9 Tobacco/Smoking Status: Tobacco use Status Tobacco use date assessed 06/21/23 06/21/23 10:35 Patient Tobacco Use Status Never used Tobacco 06/21/23 10:35 e-Cigarette/Vaping Use Never Used 06/21/23 10:35 PHQ-9: PHQ-9 Score PHQ-9: Total score 0 06/21/23 10:37 Depression Screening Interpretation: Negative Thrive Assessment: Date of Thrive Assessment Date Thrive assessed 06/21/23 06/21/23 10:37 Currently or been in a relationship where the following occur: no concerns reported Eyes General: appearance normal, both eyes and all related structures Eyelids: Yes eyelids normal Conjunctivae: conjunctivae normal Neck Neck: Yes normal visual inspection and Yes supple Resp Effort & Inspection: normal respiratory effort Auscultation: clear to auscultation bilaterally Cardio Jugular venous distension: no JVD Rate: regular rate Rhythm: regular rhythm Heart sounds: S1 normal heart sound present and S2 normal heart sound present Extrem General: Yes full ROM Assessment and Plan Assessment & Plan (1) Essential hypertension: Code(s): I10 - Essential (primary) hypertension Plan: Continue losartan and verapamil. Blood pressure goal is equal or less than 130/80. Recheck blood pressure with nurse navigator in 3 weeks. (2) Mixed hyperlipidemia: Code(s): E78.2 - Mixed hyperlipidemia Plan: Continue statins and fibrates. Repeat lipid panel. (3) Hypothyroidism: Code(s): E03.9 - Hypothyroidism, unspecified Qualifiers: Hypothyroidism type: unspecified Qualified Code(s): E03.9 - Hypothyroidism, unspecified Plan: Continue levothyroxine. (4) Chronic GERD: Code(s): K21.9 - Gastro-esophageal reflux disease without esophagitis Plan: Continue PPIs Orders: Orders Comprehensive Point Clear. Panel Fast Today I10 - Essential (primary) hypertension Lipid Panel Today E78.5 - Hyperlipidemia, unspecified Vitamin D 25-OH Total Today E55.9 - Vitamin D deficiency, unspecified Thyroid Stimulating Hormone Today I10 - Essential (primary) hypertension Coding Level of Care Code Est Pt Level 4 (56508) Diagnoses Essential hypertension I10 Mixed hyperlipidemia E78.2 Hypothyroidism, unspecified type E03.9 Hypothyroidism type: unspecified Chronic GERD K21.9 Additional Codes MARCO-7 Assessment Billing - MARCO-7 Assessment Tool: MARCO-7 Assessment 01383 ([id number]) Time Spent (min) 22
[2023-06-21 10:55] VITALS: BP 150/70
== END 2023-06-21 10:52 | disposition home or self-care (01) ==
PROVIDERS: PCP Internal Medicine; Visit Provider Internal Medicine
DX: I10 Essential (primary) hypertension (principal); E78.2 Mixed hyperlipidemia; E03.9 Hypothyroidism, unspecified; K21.9 Gastro-esophageal reflux disease without esophagitis
CPT/HCPCS: 99214

== ENCOUNTER 2023-06-21 11:12 | Outpatient (REF) | payer OTHER, SELFPAY ==
[2023-06-21 13:48] LABS: Alanine Aminotransferase 21 U/L (0-31); Albumin Level 4.3 g/dL (3.5-5.0); Alkaline Phosphatase 81 U/L (39-117); Anion Gap 10 (12-20); Aspartate Amino Transferase 27 U/L (5-31); Blood Urea Nitrogen 22 mg/dL (9-16); Calcium 9.2 mg/dL (8.4-10.2); Carbon Dioxide 27 mmol/L (22-29); Chloride 108 mmol/L (96-108); Cholesterol 167 mg/dL (<200); Estimated Glomerular Filt Rate 51; Glucose Fasting 102 mg/dL (60-99); HDL Cholesterol 46 mg/dL (>40); LDL Cholesterol Calculated 85 mg/dL (<100); Sodium 141 mmol/L (135-145); Thyroid Stimulating Hormone 1.72 uIU/mL (0.32-4.0); Total Protein 7.1 g/dL (6.5-8.0); Triglycerides 181 mg/dL (<150); Vitamin D 25-OH Total 36.6 ng/mL (>30)
== END 2023-06-21 11:13 | disposition home or self-care (01) ==
LOC: HO.LAB 11:12
PROVIDERS: PCP Internal Medicine; Visit Provider Internal Medicine
DX: E03.9 Hypothyroidism, unspecified (principal); E55.9 Vitamin D deficiency, unspecified; E78.5 Hyperlipidemia, unspecified; I10 Essential (primary) hypertension
CPT/HCPCS: 36415; 80053; 80061; 82306; 84443

== ENCOUNTER 2023-07-14 10:25 | Outpatient (AMB) | payer OTHER, SELFPAY ==
--- NOTE | 2023-07-14 10:43 | MHC.OFFVIS ---
Intake Vital Signs 07/14/23 10:44 Height 4 ft 11 in Weight 165 lb BMI 33.3 BP 138/64 Blood Pressure Location Lt brachial Position Sitting Pulse 72 Intake Visit Reasons: 6 month follow up Intake Note: Patient 6 month follow up for abdominal bloating. Patient cc: abdominal discomfort, a lot of gasses, and acid reflex everyday. Denies any other GI issues. Application Systems Engineer Required: Yes Application Systems Engineer Name: [facility] [place] Interpeter Accompanied by: Self / Same As Patient Allergies clarithromycin [CLARITHROMYCIN] Allergy (Intermediate, Verified 07/14/23 10:42) Rash hydrochlorothiazide [HYDROCHLOROTHIAZIDE] Allergy (Intermediate, Verified 07/14/23 10:42) Rash Sulfa (Sulfonamide Antibiotics) Allergy (Intermediate, Verified 07/14/23 10:42) Rash tramadol [TRAMADOL] Allergy (Intermediate, Verified 07/14/23 10:42) Rash, vomiting moexipril [From Univasc] Allergy (Mild, Verified 07/14/23 10:42) lip deviation valsartan [From Diovan] Allergy (Mild, Verified 07/14/23 10:42) Rash acetaminophen [From Vicodin] Adverse Reaction (Intermediate, Verified 07/14/23 10:42) Vomiting hydrocodone [From Vicodin] Adverse Reaction (Intermediate, Verified 07/14/23 10:42) Vomiting oxycodone [From Percocet] Adverse Reaction (Mild, Verified 07/14/23 10:42) vomiting Medication List - Last Reconciled 07/14/23 by Nazia Vásquez MD acetaminophen 500 mg PO Q6H PRN 30 days atorvastatin 10 mg PO DAILY bupropion HCl (Wellbutrin SR) 150 mg orally Take once a day x 3 days, if no side effects then increase to BID.; fenofibrate 54 mg PO DAILY fluticasone propionate 50 mcg/actuation 1 spray intranasal BID 30 days levothyroxine 50 mcg PO DAILY 90 days losartan 100 mg PO DAILY evblsvqwvkxa-yjfp-otaio acid 18-400 mg-mcg (Centrum) 1 tab PO DAILY naproxen 500 mg PO BID PRN 5 days pantoprazole 40 mg PO DAILY 90 days polyethylene glycol 3350 (Miralax) 17 grams PO DAILY PRN 30 days verapamil ER 240 mg PO DAILY 90 days HPI 6 month follow up HPI Details GI CLINIC VISIT FOR THIS 77-YEAR-OLD CZECH-SPEAKING FEMALE FOR FOLLOW-UP OF EPIGASTRIC PAIN. PMX:?Arthritis, Hypertension, Hyperlipidemia, Heart problems, Diverticulosis, Gastritis, thyroid disease ? SURGICAL HISTORY: ATILIO with BSO, cholecystectomy lap ?[facility] LABS:?07/08/19 REVIEWED NORMAL CBC WITH PLATELET COUNT OF 137, INR OF 1, ? NORMAL LFTS MILD INCREASE IN BILIRUBIN OF 1.4 ? VITAMIN B12 WAS 168 AND 2012. ?IMAGING STUDIES: 09/15/20 ABDOMINAL ULTRASOUND SHOWED:? LIVER: The liver is normal in size. The liver contour is normal. There is diffuse mildly increased liver parenchymal echogenicity, consistent with hepatic steatosis.? No focal hepatic lesion. There is no intrahepatic biliary duct dilatation seen. GALLBLADDER: Surgically absent. COMMON BILE DUCT: Prominent in caliber measuring 1.0 cm in diameter. This can be seen in the postcholecystectomy setting. RIGHT KIDNEY: Parapelvic cysts versus renal pelvic fullness. No hydronephrosis or renal calculi. The kidney measures 9.6 cm in maximum dimension. LEFT KIDNEY: Parapelvic cysts are present. No hydronephrosis or renal calculi. The kidney measures 9.7 cm in maximum dimension. SPLEEN: Normal. The spleen measures 9.4 cm in maximum dimension. ?06/22/[address] SCAN SHOWED: ? IMPRESSION: ? Diverticulosis. No evidence of diverticulitis. Bilateral renal peripelvic cysts ?05/01 UGI SHOWED: ? There is a small hiatal hernia with moderate gastroesophageal reflux into the upper esophagus. ? Otherwise, the course, caliber and peristalsis of stomach, duodenal ? bulb and the sweep is normal. The mucosal pattern of stomach, duodenal ? bulb and CBD is normal except for a small round filling defect in the ? third segment duodenum on several last images.. Question prominent ? Eboni's gland, mass or polyp. Incidental note is made of previous cholecystectomy. ?ENDOSCOPIC STUDIES: 09/07/19 EGD AND COLONOSCOPY SHOWED: ? ESOPHAGUS: Small hiatus hernia and focal mild esophagitis ? STOMACH: Gastritis and gastric polyps ? Colonoscopy Findings: ? No polyps were detected ? Moderate to severe diverticulosis seen in the left colon ? Small hemorrhoids on retroflexed exam. ? Plan: ? Await pathology results ? Continue present medications ? Repeat Colonoscopy in 10 years if pt remains in stable health. ? Above findings were reviewed with the patient and GERD and diverticulosis handouts ? were provided. ? A. Small bowel, biopsy: Small intestinal mucosa within normal limits. ? B. Stomach, biopsy: Antral-type mucosa with moderate chronic inactive inflammation; no Helicobacter organisms seen. ? C. Stomach polyp: Fundic gland polyp with background mild chronic inactive inflammation; no Helicobacter organisms seen. ?TODAY'S VISIT Patient cc: abdominal discomfort, a lot of gasses, and acid reflex everyday. ?[facility] [place] [employer], Gio Intermittent GERD symptoms. Takes Miralax prn for constipation which is helpful. Has a BM 2-3 times a week. ?PAST VISIT: Lab results were reviewed with the patient. Denies abdominal pain or heartburn. Continues to have constipation. Has a BM sometimes twice a day and sometimes every other day. She takes medications for constipation as needed. Abd US results were reviewed with the patient. ? Denies any abd pain at present. Had abdominal pain a week ago after eating a buffet - took TUMS and pain went away. ?Abd pain is much better and sometimes she gets it and sometimes she does not. ? Can be once a week to once a month and can last all day or a few hrs. ? Notes a little bit of heartburn - 2-3 times a week - sometimes day or night. ? Avoids spicy foods. ? Constipation improved with medications - Senna with colace. ? EGD and Colonoscopy and bx results were reviewed with the patient. ? Continues to have pain in her throat. ? Called her PCP and was prescribed PCN and the sore throat is getting better. ? Taking Senna three times a week alternating with Miralax and continuing to have constipation - advised to take Senna daily and take Miralax every other day. ? Pain is intermittent 8/10 in intensity and feels like a pressure. ? Pain radiates to the back and lower extremities. ? Pain is constant and varies in intensity. ? Unable to identify any precipitating factors. ? Thinks its her thyroid medication which is causing the pain. ? Pain gets a little better after a BM or passing gas. ? Notes chills and denies fever, ? Complains of decreased appetite and weight loss of 7 lbs since 03/01. ? Has been eating less and notes heartburn, early satiety, nausea and occasional vomiting, gas and bloating. ? Vomiting can be bilious. ? Denies dysphagia. ? Patient denies change in bowel habits, black stools or rectal bleeding. ? Chronic constipation and has a BM every other day if she takes medication for constipation ? Denies past problems with anesthesia or sleep apnea. ? Snores loudly. ? Denies major heart or lung problems ? Denies use of NSAIDS or blood thinners. STOPPED TAKING PLAVIX A YEAR AGO ? FAMILY HISTORY: Denies known FH of colon polyps, colon cancer or GI malignancy PFSH Medical History Cataracts, bilateral Chronic GERD Postmenopausal Numbness and tingling Anemia Productive cough Polyarthralgia Mixed hyperlipidemia Vertigo Essential hypertension Hypothyroidism Right hip pain Left hip pain Hypertension Chronic pain Surgical History Hx of eye surgery Status post laser ablation of incompetent vein History of esophagogastroduodenoscopy (EGD) Hx of colonoscopy History of total abdominal hysterectomy and bilateral salpingo-oophorectomy History of cholecystectomy Family History Father Alzheimer disease Mother Stroke Other No family history of cancer Social History Household Members: None Housing: Apartment Are you a primary tire care manager to a significant other at home: No Do you presently have visiting nurse or other home services: No Alcohol intake: never Patient Tobacco Use Status: Never used Tobacco e-Cigarette/Vaping Use: Never Used Second Hand Smoke Exposure: No service: No Current occupational status: retired Cognitive needs: No Hearing needs: No Vision needs: Yes Review of Systems Const All systems reviewed & are unremarkable except as noted in HPI and below Physical Exam Vital Signs: Last Vital Signs Pulse 72 07/14/23 10:44 BP 138/64 07/14/23 10:44 BMI result Body Mass Index 33.3 Const General: healthy appearing and no acute distress Nutritional Appearance: obese Orientation/consciousness: patient oriented x3 Limitations: language barrier HEENT Head: Yes normal to inspection Ears: hearing grossly normal bilaterally Eyes Sclerae: sclerae normal Pupils: Equal, round and reactive pupils present Neck Neck: Yes normal visual inspection Chest Chest palpation & inspection: normal inspection of the chest Resp Effort & Inspection: normal respiratory effort Auscultation: clear to auscultation bilaterally Cardio Palpation: normal PMI Rate: regular rate Rhythm: regular rhythm Heart sounds: S1 normal heart sound present, S2 normal heart sound present and no murmurs GI Palpation (GI): Soft to palpation, nontender and No hepatosplenomegaly present Auscultation: normal bowel sounds Rectal Exam - Female: deferred Skin General skin exam: no rashes or lesions noted Neuro General: patient oriented x3, gait normal and moves all extremities Cranial nerves: Yes Equal, round and reactive pupils present Psych Appearance: grossly normal Mental Status: mental status grossly normal Assessment & Plan Assessment & Plan (1) Upper abdominal pain: Code(s): R10.10 - Upper abdominal pain, unspecified (2) Chronic constipation: Comment: Continue Miralax prn Code(s): K59.09 - Other constipation (3) Abdominal bloating: Code(s): R14.0 - Abdominal distension (gaseous) (4) Colon cancer screening: Comment: 08/2019 No polyps were detected on colonoscopy. Repeat Colonoscopy can be considered in 10 years if patient remains in stable health. Code(s): Z12.11 - Encounter for screening for malignant neoplasm of colon (5) NAFL (nonalcoholic fatty liver): Code(s): K76.0 - Fatty (change of) liver, not elsewhere classified (6) Chronic GERD: Code(s): K21.9 - Gastro-esophageal reflux disease without esophagitis Plan 77 year old Moroccan-speaking female with Arthritis, Hypertension, Hyperlipidemia, Heart problems, Diverticulosis, Gastritis seen for evaluation of abdominal pain with bloating and chronic constipation. Upper GI showed mild reflux and a small round filling defect in the third segment duodenum on several last images raising concern for a polyp, mass or prominent Eboni's gland. Patient was advised to start famotidine for GERD and abdominal pain and use senna for constipation. 08/30 EGD showed a small hiatal hernia with focal esophagitis, gastritis and multiple hyperplastic gastric polyps. No nodule or polyp was visualized in the duodenum. 09/2020 Abd US showed?mild hepatic steatosis and parapelvic renal cysts?(she is > 20 yrs status post lap cathleen). 07/14/23 Intermittent GERD symptoms. Takes Miralax prn for constipation which is helpful and she was advised to take it daily to every other day. Has a BM 2-3 times a week. Follow-up appointment in 6 months Coding Level of Care Code Est Pt Level 4 (77137) Diagnoses Upper abdominal pain R10.10 Chronic constipation K59.09 Abdominal bloating R14.0 Colon cancer screening Z12.11 NAFL (nonalcoholic fatty liver) K76.0 Chronic GERD K21.9 Time Spent (min) 23
[2023-07-14 10:44] VITALS: BP 138/64; PULSE 72; BMI 33.3
== END 2023-07-14 11:23 | disposition home or self-care (01) ==
PROVIDERS: PCP Internal Medicine; Visit Provider Internal Medicine Gastroenterology
DX: R10.10 Upper abdominal pain, unspecified (principal); K59.09 Other constipation; R14.0 Abdominal distension (gaseous); Z12.11 Encounter for screening for malignant neoplasm of colon; K76.0 Fatty (change of) liver, not elsewhere classified; K21.9 Gastro-esophageal reflux disease without esophagitis
CPT/HCPCS: 99214

== ENCOUNTER → 2023-07-14 10:25 | Outpatient (BNVA) | payer OTHER, SELFPAY | PROVIDERS: PCP Internal Medicine; Visit Provider Internal Medicine Gastroenterology | DX: R14.0 Abdominal distension (gaseous) (principal); R10.10 Upper abdominal pain, unspecified; K59.09 Other constipation; K76.0 Fatty (change of) liver, not elsewhere classified; K21.9 Gastro-esophageal reflux disease without esophagitis | CPT/HCPCS: 99212 ==

== ENCOUNTER 2023-08-15 12:18 | Outpatient (REF) | payer OTHER, SELFPAY | END 2023-08-15 12:19 | disposition home or self-care (01) | LOC: HO.MAMMO 12:18 | PROVIDERS: PCP Internal Medicine; Visit Provider Internal Medicine | DX: Z12.31 Encounter for screening mammogram for malignant neoplasm of breast (principal) | CPT/HCPCS: 77063; 77067 ==

== ENCOUNTER → 2023-08-15 13:00 | Outpatient (BNV) | payer OTHER, SELFPAY | PROVIDERS: PCP Internal Medicine; Visit Provider Radiology Diagnostic Radiology | DX: Z12.31 Encounter for screening mammogram for malignant neoplasm of breast (principal) | CPT/HCPCS: 77063; 77067 ==

== ENCOUNTER 2023-08-29 10:35 | Outpatient (AMB) | payer OTHER, SELFPAY ==
[2023-08-29 11:24] VITALS: BP 160/70; PULSE 69; BMI 49.2
--- NOTE | 2023-08-29 11:24 | A.OFFVIS_ITS ---
Intake Vital Signs 08/29/23 11:24 Height 4 ft 1 in Weight 167 lb 15.876 oz BMI 49.2 BP 160/70 H Blood Pressure Location Lt brachial Position Sitting Pulse 69 Pulse Source Pulse Oximeter Intake Visit Reasons: 6 mth fu Intake Note: pt its here for her 6mth f/up/ pt states that she its doing fine. Adventure Education Teacher Required: Yes Adventure Education Teacher Name: Nara/sweetie Accompanied by: Self / Same As Patient Allergies clarithromycin [CLARITHROMYCIN] Allergy (Intermediate, Verified 07/14/23 10:42) Rash hydrochlorothiazide [HYDROCHLOROTHIAZIDE] Allergy (Intermediate, Verified 07/14/23 10:42) Rash Sulfa (Sulfonamide Antibiotics) Allergy (Intermediate, Verified 07/14/23 10:42) Rash tramadol [TRAMADOL] Allergy (Intermediate, Verified 07/14/23 10:42) Rash, vomiting moexipril [From Univasc] Allergy (Mild, Verified 07/14/23 10:42) lip deviation valsartan [From Diovan] Allergy (Mild, Verified 07/14/23 10:42) Rash acetaminophen [From Vicodin] Adverse Reaction (Intermediate, Verified 07/14/23 10:42) Vomiting hydrocodone [From Vicodin] Adverse Reaction (Intermediate, Verified 07/14/23 10:42) Vomiting oxycodone [From Percocet] Adverse Reaction (Mild, Verified 07/14/23 10:42) vomiting Medication List - Last Reconciled 08/29/23 by Flynn Watkins MD acetaminophen 500 mg PO Q6H PRN 30 days atorvastatin 10 mg PO DAILY fenofibrate 54 mg PO DAILY fluticasone propionate 50 mcg/actuation 1 spray intranasal BID 30 days levothyroxine 50 mcg PO DAILY 90 days losartan 100 mg PO DAILY tpfzficwlkad-vihw-ttcan acid 18-400 mg-mcg (Centrum) 1 tab PO DAILY naproxen 500 mg PO BID PRN 5 days pantoprazole 40 mg PO DAILY 90 days polyethylene glycol 3350 (Miralax) 17 grams PO DAILY PRN 30 days verapamil ER 240 mg PO DAILY 90 days HPI HPI Comments History of Present Illness Details 77-year-old female who is here after rec ent ER visit for new patient visit. She was in the emergency department with significantly elevated blood pressure and palpitations. She had mildly abnormal high sensitive troponin levels and these were felt to be due to elevated blood pressures. Her blood pressure improved and she was discharged home and was advised to see us in follow-up. She said she was getting some palpitations but did not have any chest discomfort shortness of breath. Her blood pressure control is reasonable currently and she has not had any further palpitations. Appears to be compliant with medications. She is denying any other issues curre ntly. She is taking losartan 100 mg and verapamil 240 mg daily. 02/21/23: She returns for follow-up. Jalyn contreras has been doing well. She had echocardiography in November 2022 which showed normal LV function of 60 65% and normal global longitudinal strain value of-21%. Normal RV function. No significant valvular pathology. Borderline dilated ascending aorta 3.4 cm. She has been taking medication regularly. She continues to smoke half a pack per day. We discussed and she previously took Chantix but could not tolerated due to hallucinations. 08/29/2023: She returns for follow-up. H er blood pressure is elevated. Manual blood pressure checked by myself was 158/80. She is taking verapamil and losartan. She has allergy to hydrochlorothiazide. We discussed using laborer car barn about adding amlodipine 5 mg daily and after some discussion she is agreeable. [facility] Medical History Cataracts, bilateral Chronic GERD Postmenopausal Numbness and tingling Anemia Productive cough Polyarthralgia Mixed hyperlipidemia Vertigo Essential hypertension Hypothyroidism Right hip pain Left hip pain Hypertension Chronic pain Surgical History Hx of eye surgery Status post laser ablation of incompetent vein History of esophagogastroduodenoscopy (EGD) Hx of colonoscopy History of total abdominal hysterectomy and bilateral salpingo-oophorectomy History of cholecystectomy Family History Father Alzheimer disease Mother Stroke Other No family history of cancer Social History Household Members: None Housing: Apartment Are you a primary care manager to a significant other at home: No Do you presently have visiting nurse or other home services: No Alcohol intake: never Patient Tobacco Use Status: Never used Tobacco e-Cigarette/Vaping Use: Never Used Second Hand Smoke Exposure: No service: No Current occupational status: retired Cognitive needs: No Hearing needs: No Vision needs: Yes Review of Systems Const Denies chills, Denies fatigue, Denies fever(s), Denies frequent falls, Denies weakness, Denies weight gain and Denies weight loss ENT Denies dizziness Card Denies chest pain, Denies leg edema, Denies lightheadedness, Denies palpitations, Denies dyspnea and Denies dyspnea on exertion Resp Denies cough, Denies dyspnea and Denies dyspnea on exertion GI Denies hematochezia Musc Denies abnormal gait, Denies muscle weakness, Denies numbness, Denies radiating pain into limb and Denies tingling Neuro Denies abnormal gait, Denies dizziness, Denies frequent falls, Denies numbness, Denies tingling and Denies weakness Endo Denies fatigue and Denies palpitations Physical Exam Vital Signs: Last Vital Signs Pulse 69 08/29/23 11:24 BP 160/70 H 08/29/23 11:24 BMI result Body Mass Index 49.2 GENERAL APPEARANCE: in no acute distress, pleasant. NECK: no carotid bruit, no jugular venous distention. SKIN: no suspicious lesions, warm and dry. HEART: no murmurs, regular rate and rhythm. LUNGS: clear to auscultation bilaterally. ABDOMEN: soft, nontender. EXTREMITIES: no edema. PERIPHERAL PULSES: equal. NEUROLOGIC: No gross deficits, AAO X 3 Assessment & Plan Assessment & Plan (1) Essential hypertension: Code(s): I10 - Essential (primary) hypertension (2) Mixed hyperlipidemia: Code(s): E78.2 - Mixed hyperlipidemia Plan Pleasant 77-year-old female who is here for follow-up. Blood pressure is elevated and manual repeat is 158/80. I have advised her to start amlodipine 5 mg daily and she is agreeable. Will bring her back in 2 weeks with RN for blood pressure check. She will see us back in few months otherwise. He blood pressure is elevated in 2 weeks sudden would consider increasing amlodipine to 10 mg daily. If blood pressure is not controlled with this regimen over the next month or 2 then carv edilol can be added. Previous cholesterol panel in June 2023: Triglycerides 181, total cholesterol 167, LDL 85 and HDL 46. She is on atorvastatin 10 mg and fenofibrate 54 mg daily. TSH is normal. Thank you for allowing me to participate in the care of your patient. Please feel free to contact me if you have any questions. Medications: New amlodipine 5 mg PO DAILY 90 tabs 3RF I10 - Essential (primary) hypertension Coding Level of Care Code Est Pt Level 4 (45728) Diagnoses Essential hypertension I10 Mixed hyperlipidemia E78.2
== END 2023-08-29 11:54 | disposition home or self-care (01) ==
PROVIDERS: PCP Internal Medicine; Visit Provider Internal Medicine Cardiovascular Disease
DX: I10 Essential (primary) hypertension (principal); E78.2 Mixed hyperlipidemia
CPT/HCPCS: 99214

== ENCOUNTER → 2023-08-29 10:35 | Outpatient (BNVA) | payer OTHER, SELFPAY | PROVIDERS: PCP Internal Medicine; Visit Provider Internal Medicine Cardiovascular Disease | DX: I10 Essential (primary) hypertension (principal); E78.2 Mixed hyperlipidemia | CPT/HCPCS: 99212 ==

== ENCOUNTER → 2023-09-12 10:36 | Outpatient (BNVA) | payer OTHER, SELFPAY | PROVIDERS: PCP Internal Medicine; Visit Provider Internal Medicine Cardiovascular Disease ==

== ENCOUNTER 2023-10-18 10:10 | Outpatient (AMB) | payer OTHER, SELFPAY ==
[2023-10-18 10:26] VITALS: BP 130/70; BMI 33.5
--- NOTE | 2023-10-18 10:26 | A.OFFPC_ITS ---
Vital Signs 10/18/23 10:26 Height 4 ft 11 in Weight 166 lb BMI 33.5 BP 130/70 Blood Pressure Location Lt brachial Position Sitting Intake Visit Reasons: 4 month f/u Intake Note: Patient here for a 4 month follow up Account Development Manager Required: No Accompanied by: Self / Same As Patient Allergies clarithromycin [CLARITHROMYCIN] Allergy (Intermediate, Verified 10/18/23 10:46) Rash hydrochlorothiazide [HYDROCHLOROTHIAZIDE] Allergy (Intermediate, Verified 10/18/23 10:46) Rash Sulfa (Sulfonamide Antibiotics) Allergy (Intermediate, Verified 10/18/23 10:46) Rash tramadol [TRAMADOL] Allergy (Intermediate, Verified 10/18/23 10:46) Rash, vomiting moexipril [From Univasc] Allergy (Mild, Verified 10/18/23 10:46) lip deviation valsartan [From Diovan] Allergy (Mild, Verified 10/18/23 10:46) Rash amlodipine Adverse Reaction (Severe, Verified 10/18/23 10:46) leg swelling acetaminophen [From Vicodin] Adverse Reaction (Intermediate, Verified 10/18/23 10:46) Vomiting hydrocodone [From Vicodin] Adverse Reaction (Intermediate, Verified 10/18/23 10:46) Vomiting oxycodone [From Percocet] Adverse Reaction (Mild, Verified 10/18/23 10:46) vomiting Medication List - Last Reconciled 10/18/23 by Hayde Marvin MD acetaminophen 500 mg PO Q6H PRN 30 days atorvastatin 10 mg PO DAILY fenofibrate 54 mg PO DAILY fluticasone propionate 50 mcg/actuation 1 spray intranasal BID 30 days levothyroxine 50 mcg PO DAILY 90 days losartan 100 mg PO DAILY trfsyvxvqwtr-ajsb-wqswc acid 18-400 mg-mcg (Centrum) 1 tab PO DAILY naproxen 500 mg PO BID PRN 5 days pantoprazole 40 mg PO DAILY 90 days polyethylene glycol 3350 (Miralax) 17 grams PO DAILY PRN 30 days verapamil ER 240 mg PO DAILY 90 days Tobacco use date assessed: 06/21/23 Fall risk assessment: No Falls in past year Last assessed Fall Risk: 10/18/23 Dental Screening Dental Screen Date: 06/21/23 HPI HPI Comments History of Present Illness Details This is a 78-year-old female with hypertension, mixed hyperlipidemia, hypothyroidism and chronic GERD that comes today complaining of dysuria and polyuria that started few days ago. No fever or abdominal pain. Blood pressure stable. Cholesterol and triglycerides were well controlled with medication. Last TSH was normal. GERD stable with PPIs. Urinalysis done in office shows UTI and nitrofurantoin will be sent. Patient is aware. [facility] Medical History Cataracts, bilateral Chronic GERD Postmenopausal Numbness and tingling Anemia Productive cough Polyarthralgia Mixed hyperlipidemia Vertigo Essential hypertension Hypothyroidism Right hip pain Left hip pain Hypertension Chronic pain Surgical History Hx of eye surgery Status post laser ablation of incompetent vein History of esophagogastroduodenoscopy (EGD) Hx of colonoscopy History of total abdominal hysterectomy and bilateral salpingo-oophorectomy History of cholecystectomy Family History Father Alzheimer disease Mother Stroke Other No family history of cancer Social History Household Members: None Housing: Apartment Are you a primary rn urgent care to a significant other at home: No Do you presently have visiting nurse or other home services: No Alcohol intake: never Patient Tobacco Use Status: Never used Tobacco e-Cigarette/Vaping Use: Never Used Second Hand Smoke Exposure: No service: No Current occupational status: retired Cognitive needs: No Hearing needs: No Vision needs: Yes Questionnaire Thrive Questionnaire Date Thrive assessed: 06/21/23 MARCO-7 AMB Questionnaire MARCO-7 Date MARCO - 7 assessed: 06/21/23 Source: Developed by Drs. Kendrick Mari, Mandy Willingham, Jasson Theodore and colleagues, with an educational douglas from [employer]. Review of Systems Const All systems reviewed & are unremarkable except as noted in HPI and below Eyes Reports no additional complaints, Denies change in vision and Denies other visual disturbances Card Denies chest pain at rest, Denies chest pain with activity, Denies edema, Denies irregular heart rhythm, Denies claudication, Denies dyspnea, Denies dyspnea on exertion, Denies orthopnea, Denies paroxysmal nocturnal dyspnea and Denies slow heart rate Resp Denies cough, Denies dyspnea and Denies dyspnea on exertion Reports urinary hesitancy and Reports urinary urgency Physical exam (Primary Care) Vital Signs: Last Vital Signs BP 130/70 10/18/23 10:26 BMI result Body Mass Index 33.5 Tobacco/Smoking Status: Tobacco use Status Tobacco use date assessed 06/21/23 10/18/23 10:29 Patient Tobacco Use Status Never used Tobacco 10/18/23 10:29 e-Cigarette/Vaping Use Never Used 10/18/23 10:29 Thrive Assessment: Date of Thrive Assessment Date Thrive assessed 06/21/23 10/18/23 10:29 Resp Effort & Inspection: normal respiratory effort Auscultation: clear to auscultation bilaterally Cardio Jugular venous distension: no JVD Rate: regular rate Rhythm: regular rhythm Heart sounds: S1 normal heart sound present and S2 normal heart sound present Extrem General: Yes full ROM Results AMB Urinalysis, Automated UA Leukoctes 3 Des/uL Last Edit by Magdi Last [facility] on 10/18/23 11:15 UA Nitrite Negative Last Edit by Magdi Last [facility] on 10/18/23 11:15 UA Urobilinogen 0.2 mg/dL Last Edit by Magdi Last [facility] on 10/18/23 11: 15 UA Protein 0 mg/dL Last Edit by Magdi Last [facility] on 10/18/23 11:15 UA pH 6.0 Last Edit by Magdi Last [facility] on 10/18/23 11:15 UA Blood 0 Danyel/uL Last Edit by Magdi Last [facility] on 10/18/23 11:15 UA Specific [place] 1.030 Last Edit by Magdi Last [facility] on 10/18/23 11 :15 UA Ketone Negative Last Edit by Magdi Lats [facility] on 10/18/23 11:15 UA Bilirubin 0 mg/dL Last Edit by Magdi Last [facility] on 10/18/23 11:15 UA Glucose 0 mg/dL Last Edit by Magdi Last [facility] on 10/18/23 11:15 Results Reviewed Results Reviewed: Laboratory Last Values Urine pH (Auto) 6.0 10/18/23 11:05 Specific [place] (Auto) 1.030 10/18/23 11:05 Urine Protein (Auto) 0 mg/dL 10/18/23 11:05 Glucose (UA)(Auto) 0 mg/dL 10/18/23 11:05 Urine Ketones (Auto) Negative 10/18/23 11:05 Urine Blood (Auto) 0 Danyel/uL 10/18/23 11:05 Urine Nitrite (Auto) Negative 10/18/23 11:05 Urine Bilirubin (Auto) 0 mg/dL 10/18/23 11:05 Urine Urobilinogen (Auto) 0.2 mg/dL 10/18/23 11:05 Leukocyte Esterase (Auto) 3 Des/uL 10/18/23 11:05 Assessment and Plan Assessment & Plan (1) Essential hypertension: Code(s): I10 - Essential (primary) hypertension Plan: Continue verapamil. Blood pressure goal is equal or less than 130/80. (2) Mixed hyperlipidemia: Code(s): E78.2 - Mixed hyperlipidemia Plan: Continue statins and fibrates. (3) Hypothyroidism: Code(s): E03.9 - Hypothyroidism, unspecified Qualifiers: Hypothyroidism type: unspecified Qualified Code(s): E03.9 - Hypothyroidism, unspecified Plan: Continue levothyroxine. Monitor TSH. (4) Chronic GERD: Code(s): K21.9 - Gastro-esophageal reflux disease without esophagitis Plan: Continue PPIs. (5) UTI (urinary tract infection): Code(s): N39.0 - Urinary tract infection, site not specified Plan: Start nitrofurantoin. Urine culture order. Orders: Orders XR DEXA axial skeleton Today N95.9 - Unspecified menopausal and perimenopausal disorder Vitamin D 25-OH Total 4 Months E55.9 - Vitamin D deficiency, unspecified Thyroid Stimulating Hormone 4 Months E03.9 - Hypothyroidism, unspecified Lipid Panel 4 Months E78.2 - Mixed hyperlipidemia, E78.5 - Hyperlipidemia, unspecified Urine Culture Today N39.0 - Urinary tract infection, site not specified AMB Urinalysis Automated Today N39.0 - Urinary tract infection, site not specified Complete Blood Count Auto Diff 4 Months D64.9 - Anemia, unspecified IRON PROFILE 4 Months D64.9 - Anemia, unspecified Vitamin B12 and Folate 4 Months E53.8 - Deficiency of other specified B group vitamins Comprehensive [place]. Panel Fast 4 Months E78.2 - Mixed hyperlipidemia Medications: New acetaminophen ER 650 mg PO Q8H PRN 90 tabs 11RF pain 30 days nitrofurantoin macrocrystal must administer with a meal/food 100 mg PO BID 14 caps 0RF 7 days Changed From naproxen 500 mg PO BID 5 days PRN 10 tabs 2RF pain To naproxen 500 mg PO BID PRN 60 tabs 2RF pain 30 days Discontinued acetaminophen Discontinued Reason: Patient Completed Course 500 mg PO Q6H 30 days PRN 120 tabs 3RF fever Coding Level of Care Code Est Pt Level 4 (97196) Diagnoses Essential hypertension I10 Mixed hyperlipidemia E78.2 Hypothyroidism, unspecified type E03.9 Hypothyroidism type: unspecified Chronic GERD K21.9 UTI (urinary tract infection) N39.0 Time Spent (min) 25
== END 2023-10-18 11:06 | disposition home or self-care (01) ==
PROVIDERS: PCP Internal Medicine; Visit Provider Internal Medicine
DX: I10 Essential (primary) hypertension (principal); E78.2 Mixed hyperlipidemia; E03.9 Hypothyroidism, unspecified; K21.9 Gastro-esophageal reflux disease without esophagitis; N39.0 Urinary tract infection, site not specified
CPT/HCPCS: 81003; 99214

== ENCOUNTER 2023-10-18 11:03 | Outpatient (REF) | payer OTHER, SELFPAY | END 2023-10-18 11:04 | disposition home or self-care (01) | LOC: HO.LAB 11:03 | PROVIDERS: Visit Provider Internal Medicine | DX: N39.0 Urinary tract infection, site not specified (principal) | CPT/HCPCS: 87086 ==

== ENCOUNTER 2023-11-11 13:06 | Outpatient (REF) | payer OTHER, SELFPAY ==
--- NOTE | ~2023-11-11 | MM_ITS ---
EXAMINATION: BONE DENSITOMETRY CLINICAL INDICATION: Unspecified menopausal and perimenopausal disorder. COMPARISON: Previous BD dated 10/08/2021 and baseline BD dated 07/08/2008. TECHNIQUE: Using a [employer] DXA System (software version: 13.1) manufactured by [employer], dual-energy x-ray absorptiometry was performed of the lumbar spine and left hip. The images are of good technical quality. Summary results are attached. FINDINGS: LEFT FEMUR, NECK: Current: BMD 0.987 g/cm2, Z-score 1.5, T-score -0.4, normal. Prior: BMD 0.952 g/cm2. Baseline: BMD 1.129 g/cm2. LEFT FEMUR, TOTAL: Current: BMD 1.193 g/cm2, Z-score 3.2, T-score 1.5, normal, 0.3% decrease from previous, 5.8% decrease from baseline (<5% change is not significant). Prior: BMD 1.197 g/cm2. Baseline: BMD 1.267 g/cm2. AP SPINE L1-L4: Current: BMD 1.175 g/cm2, Z-score 1.4, T-score 0.0, normal, 4.9% decrease from previous, 0.4% increase from baseline (<5% change is not significant). Prior: BMD 1.236 g/cm2. Baseline: BMD 1.170 g/cm2. IDENTIFIED RISK FACTORS: Early menopause, secondary osteoporosis, hysterectomy, bilateral oophorectomy, height loss, low calcium intake, recurrent falls. HISTORY OF FRACTURE: None listed. MEDICATIONS: Multivitamin. MM/XR DEXA axial skeleton IMPRESSION: 1. DIAGNOSIS: Normal bone density based on the lowest T-score value of -0.4 in the femoral neck applying World Health Organization criteria. 2. 10-YEAR FRACTURE RISK PREDICTION, FRAX: According to the guidelines, FRAX calculation should only be performed on patients in the osteopenia bone density category. Therefore, FRAX was not performed on this patient. 3. Treatment Recommendations: NOF guidelines recommend consideration for treatment in postmenopausal women and men age 50 and older presenting with the following: -A hip or vertebral (clinical or morphometric) fracture. -T-score less than or equal to -2.5 at the femoral neck or spine after appropriate evaluation to exclude secondary causes. -Low bone mass at the hip or spine and a 10-year fracture probability by FRAX of greater than or equal to 3% for hip fracture or greater than or equal to 20% for major osteoporotic fracture based on the [place] adapted WHO algorithm. 4. Other Recommendations: All treatment decisions require clinical judgment and consideration of individual patient factors, including patient preferences, comorbidities, previous drug use, risk factors not captured in the FRAX model (e.g. frailty, falls, vitamin D deficiency, increased bone turnover, interval significant decline in bone density) and possible under or overestimation of fracture risk by FRAX. FUTURE SCAN RECOMMENDATION: People with diagnosed cases of osteoporosis or at high risk for fracture should have regular bone mineral density tests. For patients eligible for Medicare, routine testing is allowed once every 2 years. The testing frequency can be increased to one year for patients who have rapidly progressing disease, those who are receiving or discontinuing medical therapy to restore bone mass, or have additional risk factors.
== END 2023-11-11 13:07 | disposition home or self-care (01) ==
LOC: HO.MAMMO 13:06
PROVIDERS: PCP Internal Medicine; Visit Provider Internal Medicine
DX: Z13.820 Encounter for screening for osteoporosis (principal); Z78.0 Asymptomatic menopausal state
CPT/HCPCS: 77080

== ENCOUNTER 2024-01-12 10:44 | Outpatient (AMB) | payer OTHER, SELFPAY ==
--- NOTE | 2024-01-12 10:48 | MHC.OFFVIS ---
Vital Signs 01/12/24 10:50 Height 4 ft 11 in Weight 169 lb BMI 34.1 BP 119/55 L Blood Pressure Location Lt brachial Position Sitting Pulse 67 Intake Visit Reasons: 6 month follow up GERD and constipation Intake Note: Patient follow up for GERD and constipation. Patient cc: Acid reflex on and off with burning sensation, and some constipation Network Control Technician Required: Yes Network Control Technician Name: [facility] Accompanied by: Self / Same As Patient Allergies clarithromycin [CLARITHROMYCIN] Allergy (Intermediate, Verified 01/12/24 10:48) Rash hydrochlorothiazide [HYDROCHLOROTHIAZIDE] Allergy (Intermediate, Verified 01/12/24 10:48) Rash Sulfa (Sulfonamide Antibiotics) Allergy (Intermediate, Verified 01/12/24 10:48) Rash tramadol [TRAMADOL] Allergy (Intermediate, Verified 01/12/24 10:48) Rash, vomiting moexipril [From Univasc] Allergy (Mild, Verified 01/12/24 10:48) lip deviation valsartan [From Diovan] Allergy (Mild, Verified 01/12/24 10:48) Rash amlodipine Adverse Reaction (Severe, Verified 01/12/24 10:48) leg swelling acetaminophen [From Vicodin] Adverse Reaction (Intermediate, Verified 01/12/24 10:48) Vomiting hydrocodone [From Vicodin] Adverse Reaction (Intermediate, Verified 01/12/24 10:48) Vomiting oxycodone [From Percocet] Adverse Reaction (Mild, Verified 01/12/24 10:48) vomiting Medication List - Last Reconciled 01/12/24 by Nazia Vásquez MD acetaminophen ER 650 mg PO Q8H PRN 30 days atorvastatin 10 mg PO DAILY fenofibrate 54 mg PO DAILY fluticasone propionate 50 mcg/actuation 1 spray intranasal BID 30 days levothyroxine 50 mcg PO DAILY 90 days losartan 100 mg PO DAILY cyeshsfyemei-qdnv-ggckd acid 18-400 mg-mcg (Centrum) 1 tab PO DAILY naproxen 500 mg PO BID PRN 30 days nitrofurantoin macrocrystal 100 mg PO BID 7 days pantoprazole 40 mg PO DAILY 90 days polyethylene glycol 3350 (Miralax) 17 grams PO DAILY PRN 30 days verapamil ER 240 mg PO DAILY 90 days HPI HPI 6 month follow up GERD and constipation: Details: GI CLINIC VISIT FOR THIS 78-YEAR-OLD SRI LANKAN-SPEAKING FEMALE FOR FOLLOW-UP OF EPIGASTRIC PAIN. PMX:?Arthritis, Hypertension, Hyperlipidemia, Heart problems, Diverticulosis, Gastritis, thyroid disease ? SURGICAL HISTORY: ATILIO with BSO, cholecystectomy lap ?[facility] LABS:?07/08/19 REVIEWED NORMAL CBC WITH PLATELET COUNT OF 137, INR OF 1, ? NORMAL LFTS MILD INCREASE IN BILIRUBIN OF 1.4 ? VITAMIN B12 WAS 168 AND 2012. ?IMAGING STUDIES: 09/15/20 ABDOMINAL ULTRASOUND SHOWED:? LIVER: The liver is normal in size. The liver contour is normal. There is diffuse mildly increased liver parenchymal echogenicity, consistent with hepatic steatosis.? No focal hepatic lesion. There is no intrahepatic biliary duct dilatation seen. GALLBLADDER: Surgically absent. COMMON BILE DUCT: Prominent in caliber measuring 1.0 cm in diameter. This can be seen in the postcholecystectomy setting. RIGHT KIDNEY: Parapelvic cysts versus renal pelvic fullness. No hydronephrosis or renal calculi. The kidney measures 9.6 cm in maximum dimension. LEFT KIDNEY: Parapelvic cysts are present. No hydronephrosis or renal calculi. The kidney measures 9.7 cm in maximum dimension. SPLEEN: Normal. The spleen measures 9.4 cm in maximum dimension. ?06/22/[address] SCAN SHOWED: ? IMPRESSION: ? Diverticulosis. No evidence of diverticulitis. Bilateral renal peripelvic cysts ?05/01 UGI SHOWED: ? There is a small hiatal hernia with moderate gastroesophageal reflux into the upper esophagus. ? Otherwise, the course, caliber and peristalsis of stomach, duodenal ? bulb and the sweep is normal. The mucosal pattern of stomach, duodenal ? bulb and CBD is normal except for a small round filling defect in the ? third segment duodenum on several last images.. Question prominent ? Eboni's gland, mass or polyp. Incidental note is made of previous cholecystectomy. ?ENDOSCOPIC STUDIES: 09/07/19 EGD AND COLONOSCOPY SHOWED: ? ESOPHAGUS: Small hiatus hernia and focal mild esophagitis ? STOMACH: Gastritis and gastric polyps ? Colonoscopy Findings: ? No polyps were detected ? Moderate to severe diverticulosis seen in the left colon ? Small hemorrhoids on retroflexed exam. ? Plan: ? Await pathology results ? Continue present medications ? Repeat Colonoscopy in 10 years if pt remains in stable health. ? Above findings were reviewed with the patient and GERD and diverticulosis handouts ? were provided. ? A. Small bowel, biopsy: Small intestinal mucosa within normal limits. ? B. Stomach, biopsy: Antral-type mucosa with moderate chronic inactive inflammation; no Helicobacter organisms seen. ? C. Stomach polyp: Fundic gland polyp with background mild chronic inactive inflammation; no Helicobacter organisms seen. ?TODAY'S VISIT Patient follow up for GERD and constipation. 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 Takes Mylanta prn which relieves heartburn and also makes her have a BM Takes Miralax prn for constipation and denies ongoing symptoms Has a BM 2-3 times a week. ?PAST VISIT: Lab results were reviewed with the patient. Denies abdominal pain or heartburn. Continues to have constipation. Has a BM sometimes twice a day and sometimes every other day. She takes medications for constipation as needed. Abd US results were reviewed with the patient. ? Denies any abd pain at present. Had abdominal pain a week ago after eating a buffet - took TUMS and pain went away. ?Abd pain is much better and sometimes she gets it and sometimes she does not. ? Can be once a week to once a month and can last all day or a few hrs. ? Notes a little bit of heartburn - 2-3 times a week - sometimes day or night. ? Avoids spicy foods. ? Constipation improved with medications - Senna with colace. ? EGD and Colonoscopy and bx results were reviewed with the patient. ? Continues to have pain in her throat. ? Called her PCP and was prescribed PCN and the sore throat is getting better. ? Taking Senna three times a week alternating with Miralax and continuing to have constipation - advised to take Senna daily and take Miralax every other day. ? Pain is intermittent /10 in intensity and feels like a pressure. ? Pain radiates to the back and lower extremities. ? Pain is constant and varies in intensity. ? Unable to identify any precipitating factors. ? Thinks its her thyroid medication which is causing the pain. ? Pain gets a little better after a BM or passing gas. ? Notes chills and denies fever, ? Complains of decreased appetite and weight loss of 7 lbs since 03/01. ? Has been eating less and notes heartburn, early satiety, nausea and occasional vomiting, gas and bloating. ? Vomiting can be bilious. ? Denies dysphagia. ? Patient denies change in bowel habits, black stools or rectal bleeding. ? Chronic constipation and has a BM every other day if she takes medication for constipation ? Denies past problems with anesthesia or sleep apnea. ? Snores loudly. ? Denies major heart or lung problems ? Denies use of NSAIDS or blood thinners. STOPPED TAKING PLAVIX A YEAR AGO ? FAMILY HISTORY: Denies known FH of colon polyps, colon cancer or GI malignancy PFSH Medical History Cataracts, bilateral Chronic GERD Postmenopausal Numbness and tingling Anemia Productive cough Polyarthralgia Mixed hyperlipidemia Vertigo Essential hypertension Hypothyroidism Right hip pain Left hip pain Hypertension Chronic pain Surgical History Hx of eye surgery Status post laser ablation of incompetent vein History of esophagogastroduodenoscopy (EGD) Hx of colonoscopy History of total abdominal hysterectomy and bilateral salpingo-oophorectomy History of cholecystectomy Family History Father Alzheimer disease Mother Stroke Other No family history of cancer Social History Household Members: None Housing: Apartment Are you a primary restorative care technician to a significant other at home: No Do you presently have visiting nurse or other home services: No Alcohol intake: never Patient Tobacco Use Status: Never used Tobacco e-Cigarette/Vaping Use: Never Used Second Hand Smoke Exposure: No service: No Current occupational status: retired Cognitive needs: No Hearing needs: No Vision needs: Yes Review of Systems Const All systems reviewed & are unremarkable except as noted in HPI and below Physical Exam Vital Signs: Last Vital Signs Pulse 67 01/12/24 10:50 BP 119/55 L 01/12/24 10:50 BMI result Body Mass Index 34.1 Const General: healthy appearing and no acute distress Nutritional Appearance: obese Orientation/consciousness: patient oriented x3 Limitations: language barrier HEENT Head: Yes normal to inspection Ears: hearing grossly normal bilaterally Eyes Sclerae: sclerae normal Pupils: Equal, round and reactive pupils present Neck Neck: Yes normal visual inspection Chest Chest palpation & inspection: normal inspection of the chest Resp Effort & Inspection: normal respiratory effort Auscultation: clear to auscultation bilaterally Cardio Palpation: normal PMI Rate: regular rate Rhythm: regular rhythm Heart sounds: S1 normal heart sound present, S2 normal heart sound present and no murmurs GI Palpation (GI): Soft to palpation, nontender and No hepatosplenomegaly present Auscultation: normal bowel sounds Rectal Exam - Female: deferred Skin General skin exam: no rashes or lesions noted Neuro General: patient oriented x3, gait normal and moves all extremities Cranial nerves: Yes Equal, round and reactive pupils present Psych Appearance: grossly normal Mental Status: mental status grossly normal Assessment & Plan Assessment & Plan (1) Upper abdominal pain: Code(s): R10.10 - Upper abdominal pain, unspecified Category: Medical (2) Chronic constipation: Comment: Continue Miralax prn Code(s): K59.09 - Other constipation Category: Medical (3) Abdominal bloating: Code(s): R14.0 - Abdominal distension (gaseous) Category: Medical (4) Colon cancer screening: Comment: 08/2019 No polyps were detected on colonoscopy. Repeat Colonoscopy can be considered in 10 years if patient remains in stable health. Code(s): Z12.11 - Encounter for screening for malignant neoplasm of colon Category: Medical (5) NAFL (nonalcoholic fatty liver): Code(s): K76.0 - Fatty (change of) liver, not elsewhere classified Category: Medical (6) Normochromic normocytic anemia: Code(s): D64.9 - Anemia, unspecified Category: Medical (7) Chronic GERD: Code(s): K21.9 - Gastro-esophageal reflux disease without esophagitis Category: Medical Plan 78 year old Belgian-speaking female with Arthritis, Hypertension, Hyperlipidemia, Heart problems, Diverticulosis, Gastritis seen for evaluation of abdominal pain with bloating and chronic constipation. Upper GI showed mild reflux and a small round filling defect in the third segment duodenum on several last images raising concern for a polyp, mass or prominent Eboni's gland. Patient was advised to start famotidine for GERD and abdominal pain and use senna for constipation. 08/30 EGD showed a small hiatal hernia with focal esophagitis, gastritis and multiple hyperplastic gastric polyps. No nodule or polyp was visualized in the duodenum. 09/2020 Abd US showed?mild hepatic steatosis and parapelvic renal cysts?(she is > 20 yrs status post lap cathleen). 07/14/23 Intermittent GERD symptoms. Takes Miralax prn for constipation which is helpful and she was advised to take it daily to every other day. Has a BM 2-3 times a week. 01/12/24 US with Elastography (fatty liver on past US and low platelets - (137 to 173) Pt will have labs in 04/05 before her FU appt with Dr Supa MERCEDES in 4 months Orders: Orders US abdomen mistry w elastography Today K76.0 - Fatty (change of) liver, not elsewhere classified Coding Level of Care Code Est Pt Level 4 (44633) Diagnoses Upper abdominal pain R10.10 Chronic constipation K59.09 Abdominal bloating R14.0 Colon cancer screening Z12.11 NAFL (nonalcoholic fatty liver) K76.0 Normochromic normocytic anemia D64.9 Chronic GERD K21.9 Time Spent (min) 23
[2024-01-12 10:50] VITALS: BP 119/55; PULSE 67; BMI 34.1
== END 2024-01-12 11:38 | disposition home or self-care (01) ==
PROVIDERS: PCP Internal Medicine; Visit Provider Internal Medicine Gastroenterology
DX: R10.10 Upper abdominal pain, unspecified (principal); K59.09 Other constipation; R14.0 Abdominal distension (gaseous); Z12.11 Encounter for screening for malignant neoplasm of colon; K76.0 Fatty (change of) liver, not elsewhere classified; D64.9 Anemia, unspecified; K21.9 Gastro-esophageal reflux disease without esophagitis
CPT/HCPCS: 99214

== ENCOUNTER → 2024-01-12 10:44 | Outpatient (BNVA) | payer OTHER, SELFPAY | PROVIDERS: PCP Internal Medicine; Visit Provider Internal Medicine Gastroenterology | DX: Z12.11 Encounter for screening for malignant neoplasm of colon (principal); K59.09 Other constipation; K76.0 Fatty (change of) liver, not elsewhere classified; K21.9 Gastro-esophageal reflux disease without esophagitis; R10.10 Upper abdominal pain, unspecified; R14.0 Abdominal distension (gaseous); D64.9 Anemia, unspecified | CPT/HCPCS: 99212 ==

== ENCOUNTER 2024-01-26 09:28 | Outpatient (REF) | payer OTHER, SELFPAY ==
--- NOTE | ~2024-01-26 | US_ITS ---
EXAMINATION: US ABDOMEN LIMITED WITH LIVER ELASTOGRAPHY CLINICAL INFORMATION: Fatty liver. COMPARISON: Ultrasound abdomen 09/15/2020. CT abdomen and pelvis 06/21/2019. TECHNIQUE: Real-time imaging of the abdominal viscera. Noninvasive ultrasound liver fibrosis assessment is performed using Sophia ElastPQ point quantification shear wave elastography (pSWE) with a 5 MHz transducer. Multiple elastography samples are obtained. FINDINGS: PANCREAS: The visualized pancreatic head and body are normal in appearance. The remainder of the pancreas is obscured from visualization by the overlying bowel gas. LIVER: The liver demonstrates normal size and contour but with slightly increased echogenicity suggesting hepatic steatosis. No focal lesion or intrahepatic biliary duct dilatation. The right lobe measures 14.1 cm in length. The left lobe measures 10.1 cm in length. Shear wave elastography provides a median stiffness of 1.58 m/s (reference: normal median stiffness is 0.81 - 1.22 m/s). The IQR/median stiffness to assess sampling precision is 0.06 (reference: optimal IQR/median stiffness is under 0.3). GALLBLADDER: Surgically absent. COMMON BILE DUCT: Normal in caliber measuring 0.9 cm in diameter. RIGHT KIDNEY: No hydronephrosis. No renal calculi or solid focal parenchymal lesions. Parapelvic cysts are present as can be seen on the 06/21/2019 study. These require no additional imaging or followup. The kidney measures 10.1 cm in maximum dimension. FREE FLUID: None. US/US abdomen mistry w elastography IMPRESSION: 1. Hepatic steatosis. 2. Elastography: Liver elastography measurements are consistent with a minimal risk for clinically significant liver fibrosis (METAVIR Stage F0-F1). Electronically signed by: Timo Vitale MD 02/16/2024 09:57 PM EDT
== END 2024-01-26 09:29 | disposition home or self-care (01) ==
LOC: HO.US 09:28
PROVIDERS: PCP Internal Medicine; Visit Provider Internal Medicine Gastroenterology
DX: K76.0 Fatty (change of) liver, not elsewhere classified (principal)
CPT/HCPCS: 76705; 76981

== ENCOUNTER 2024-02-16 16:30 | Outpatient (AMB) | payer OTHER, SELFPAY ==
--- NOTE | 2024-02-16 16:38 | A.OFFPC_ITS ---
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 Required: No Accompanied by: Self / Same As Patient Allergies clarithromycin [CLARITHROMYCIN] Allergy (Intermediate, Verified 02/16/24 17:16) Rash hydrochlorothiazide [HYDROCHLOROTHIAZIDE] Allergy (Intermediate, Verified 02/16/24 17:16) Rash Sulfa (Sulfonamide Antibiotics) Allergy (Intermediate, Verified 02/16/24 17:16) Rash tramadol [TRAMADOL] Allergy (Intermediate, Verified 02/16/24 17:16) Rash, vomiting moexipril [From Univasc] Allergy (Mild, Verified 02/16/24 17:16) lip deviation valsartan [From Diovan] Allergy (Mild, Verified 02/16/24 17:16) Rash amlodipine Adverse Reaction (Severe, Verified 02/16/24 17:16) leg swelling acetaminophen [From Vicodin] Adverse Reaction (Intermediate, Verified 02/16/24 17:16) Vomiting hydrocodone [From Vicodin] Adverse Reaction (Intermediate, Verified 02/16/24 17:16) Vomiting oxycodone [From Percocet] Adverse Reaction (Mild, Verified 02/16/24 17:16) vomiting Medication List - Last Reconciled 02/16/24 by Hayde Marvin MD acetaminophen ER 650 mg PO Q8H PRN 30 days atorvastatin 10 mg PO DAILY fenofibrate 54 mg PO DAILY heating pads ([employer]ocate Heating Pad) As directed levothyroxine 50 mcg PO DAILY 90 days losartan 100 mg PO DAILY ienbzbkuzyap-oblp-nfbkv acid 18-400 mg-mcg (Centrum) 1 tab PO DAILY naproxen 500 mg PO BID PRN 30 days pantoprazole 40 mg PO DAILY 90 days polyethylene glycol 3350 (Miralax) 17 grams PO DAILY PRN 30 days verapamil ER 240 mg PO DAILY 90 days Tobacco use date assessed: 06/21/23 Fall risk assessment: No Falls in past year Last assessed Fall Risk: 02/16/24 Dental Screening Dental Screen Date: 02/16/24 Did you have a dental visit in the last 12 months?: No Did you have a dental problem in the last 6 months where you did not have access to dental care?: No Was dental information given to patient?: Patient has dentist HPI HPI Comments History of Present Illness Details This is a 78-year-old female with hypertension, hypothyroidism and mixed hyperlipidemia that complains today of recurrent urinary tract infections. I will refer her to Urology. Blood pressure stable. Last TSH was normal. On statins and fibrates for her hyperlipidemia. No chest pain or shortness on breath. Had back pain that resolved. [facility] Medical History (Updated 02/16/24 @ 17:22 by Hayde Marvin MD) Cataracts, bilateral Chronic GERD Postmenopausal Numbness and tingling Anemia Productive cough Polyarthralgia Mixed hyperlipidemia Vertigo Essential hypertension Hypothyroidism Right hip pain Left hip pain Hypertension Chronic pain Surgical History Hx of eye surgery Status post laser ablation of incompetent vein History of esophagogastroduodenoscopy (EGD) Hx of colonoscopy History of total abdominal hysterectomy and bilateral salpingo-oophorectomy History of cholecystectomy Family History Father Alzheimer disease Mother Stroke Other No family history of cancer Social History Household Members: None Housing: Apartment Are you a primary senior care provider to a significant other at home: No Do you presently have visiting nurse or other home services: No Alcohol intake: never Patient Tobacco Use Status: Never used Tobacco e-Cigarette/Vaping Use: Never Used Second Hand Smoke Exposure: No service: No Current occupational status: retired Cognitive needs: No Hearing needs: No Vision needs: Yes Questionnaire Thrive Questionnaire Date Thrive assessed: 06/21/23 MARCO-7 AMB Questionnaire MARCO-7 Date MARCO - 7 assessed: 06/21/23 Source: Developed by Drs. Kendrick Mari, Mandy Willingham, Jasson Theodore and colleagues, with an educational douglas from [employer]. Review of Systems Const All systems reviewed & are unremarkable except as noted in HPI and below Card Denies chest pain at rest, Denies chest pain with activity, Denies edema, Denies irregular heart rhythm, Denies claudication, Denies dyspnea, Denies dyspnea on exertion, Denies orthopnea, Denies paroxysmal nocturnal dyspnea and Denies slow heart rate Resp Denies cough, Denies dyspnea and Denies dyspnea on exertion GI Denies abdominal pain, Denies change in bowel habits, Denies excessive flatus, Denies nausea and Denies vomiting Denies urinary incontinence, Denies urinary hesitancy and Denies urinary urgency Musc Denies abnormal gait, Denies atrophy, Denies deformity and Denies limited range of motion Skin/Breast Denies bleeding lesions, Denies changing lesions and Denies rash Neuro Denies abnormal gait, Denies behavioral changes and Denies lack of coordination Psych Denies behavioral changes Physical exam (Primary Care) Vital Signs: Last Vital Signs BP 134/76 02/16/24 16:39 BMI result Body Mass Index 33.9 Tobacco/Smoking Status: Tobacco use Status Tobacco use date assessed 06/21/23 02/16/24 16:48 Patient Tobacco Use Status Never used Tobacco 02/16/24 16:48 e-Cigarette/Vaping Use Never Used 02/16/24 16:48 Thrive Assessment: Date of Thrive Assessment Date Thrive assessed 06/21/23 02/16/24 16:48 Resp Effort & Inspection: normal respiratory effort Auscultation: clear to auscultation bilaterally Cardio Jugular venous distension: no JVD Rate: regular rate Rhythm: regular rhythm Heart sounds: S1 normal heart sound present and S2 normal heart sound present GI Inspection: Yes normal to inspection Palpation (GI): Soft to palpation and nontender Auscultation: normal bowel sounds Extrem General: Yes full ROM Assessment and Plan Assessment & Plan (1) Recurrent UTI: Code(s): N39.0 - Urinary tract infection, site not specified Plan: Referred to urology. (2) Essential hypertension: Code(s): I10 - Essential (primary) hypertension Plan: Continue losartan and verapamil. Blood pressure goal is equal or less than 130/80. (3) Hypothyroidism: Code(s): E03.9 - Hypothyroidism, unspecified Qualifiers: Hypothyroidism type: unspecified Qualified Code(s): E03.9 - Hypothyroidism, unspecified Plan: Continue levothyroxine. (4) Mixed hyperlipidemia: Code(s): E78.2 - Mixed hyperlipidemia Plan: Continue statins and fibrates. Orders: Referrals Urology Referral N39.0 - Urinary tract infection, site not specified Medications: New cane As directed 1 ea 0RF M25.562 - Pain in left knee Coding Level of Care Code Est Pt Level 4 (79512) Complex EM visit Add On G2211 Diagnoses Recurrent UTI N39.0 Essential hypertension I10 Hypothyroidism, unspecified type E03.9 Hypothyroidism type: unspecified Mixed hyperlipidemia E78.2 Time Spent (min) 20
[2024-02-16 16:39] VITALS: BP 134/76; BMI 33.9
== END 2024-02-16 17:22 | disposition home or self-care (01) ==
PROVIDERS: PCP Internal Medicine; Visit Provider Internal Medicine
DX: N39.0 Urinary tract infection, site not specified (principal); I10 Essential (primary) hypertension; E03.9 Hypothyroidism, unspecified; E78.2 Mixed hyperlipidemia
CPT/HCPCS: 99214; G2211

== ENCOUNTER 2024-03-21 10:15 | Outpatient (REF) | payer OTHER, SELFPAY ==
[2024-03-21 11:24] LABS: Basophils Percent Auto 0.5 % (0-2); Eosinophils Absolute Auto 0.1 X10*3/uL (0.0-0.4); Eosinophils Percent Auto 2.2 % (0-4); Hematocrit 38.2 % (37.0-47.0); Hemoglobin 12.2 g/dl (12.0-16.0); Imm Gran Abs Auto 0.02 X10*3/uL (0.00-0.03); Imm Gran Pct Auto 0.3 % (0.0-0.4); Lymphocytes Absolute Auto 2.4 X10*3/uL (1.2-4.9); Lymphocytes Percent Auto 37.6 % (20-40); MANUAL DIFF FLAG SCAN; Mean Corpuscular HGB Conc 31.9 g/dl (31.0-35.0); Mean Corpuscular Hemoglobin 30.1 pg (27.0-33.0); Mean Corpuscular Volume 94.3 fL (80.0-98.0); Monocytes Absolute Auto 0.4 X10*3/uL (0.1-1.2); Monocytes Percent Auto 6.1 % (2-11); Neutrophils Absolute Auto 3.3 x10*3/uL (2.0-8.3); Neutrophils Percent Auto 53.3 % (45-73); PLT CLUMP 1; Red Blood Count 4.05 X10*6/uL (4.20-5.50); SCAN SMEAR FLAG 1
[2024-03-21 11:41] LABS: Alanine Aminotransferase 13 U/L (0-31); Albumin Level 4.1 g/dL (3.5-5.0); Alkaline Phosphatase 89 U/L (39-117); Anion Gap 10 (12-20); Aspartate Amino Transferase 16 U/L (5-31); Bilirubin Total 0.6 mg/dL (0.0-1.0); Blood Urea Nitrogen 18 mg/dL (9-16); Calcium 9.4 mg/dL (8.4-10.2); Carbon Dioxide 26 mmol/L (22-29); Chloride 109 mmol/L (96-108); Cholesterol 184 mg/dL (<200); Estimated Glomerular Filt Rate 57; Glucose Fasting 102 mg/dL (60-99); HDL Cholesterol 47 mg/dL (>40); Iron 67 mcg/dL (30-160); LDL Cholesterol Calculated 110 mg/dL (<100); Percent Iron Saturation 23 % (15-50); Potassium 4.4 mmol/L (3.3-5.1); Sodium 141 mmol/L (135-145); Total Iron Binding Capacity 293 mcg/dL (228-428); Total Protein 7.1 g/dL (6.5-8.0); Triglycerides 137 mg/dL (<150); Unsaturated Iron Binding 226 ug/dL
[2024-03-21 11:57] LABS: Vitamin D 25-OH Total 42.3 ng/mL (>30)
[2024-03-21 12:03] LABS: Platelet Count 170 X10*3/uL (160-400); SLIDE REVIEW VERIFIED; White Blood Count 6.3 X10*3/uL (4.8-10.8)
[2024-03-21 12:11] LABS: Folate 15.7 ng/mL (> or = 4.0); Vitamin B12 463 pg/mL (200-900)
== END 2024-03-21 10:16 | disposition home or self-care (01) ==
LOC: HO.LAB 10:15
PROVIDERS: PCP Internal Medicine; Visit Provider Internal Medicine
DX: E55.9 Vitamin D deficiency, unspecified (principal); D64.9 Anemia, unspecified; E53.8 Deficiency of other specified B group vitamins; E78.2 Mixed hyperlipidemia; E03.9 Hypothyroidism, unspecified; E78.5 Hyperlipidemia, unspecified
CPT/HCPCS: 36415; 80053; 80061; 82306; 82607; 82746; 83540; 84443; 85025

== ENCOUNTER 2024-03-28 10:43 | Outpatient (AMB) | payer OTHER, SELFPAY ==
--- NOTE | 2024-03-28 10:44 | A.OFFPC_ITS ---
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 Accompanied by: Self / Same As Patient Allergies clarithromycin [CLARITHROMYCIN] Allergy (Intermediate, Verified 03/28/24 10:58) Rash hydrochlorothiazide [HYDROCHLOROTHIAZIDE] Allergy (Intermediate, Verified 03/28/24 10:58) Rash Sulfa (Sulfonamide Antibiotics) Allergy (Intermediate, Verified 03/28/24 10:58) Rash tramadol [TRAMADOL] Allergy (Intermediate, Verified 03/28/24 10:58) Rash, vomiting moexipril [From Univasc] Allergy (Mild, Verified 03/28/24 10:58) lip deviation valsartan [From Diovan] Allergy (Mild, Verified 03/28/24 10:58) Rash amlodipine Adverse Reaction (Severe, Verified 03/28/24 10:58) leg swelling acetaminophen [From Vicodin] Adverse Reaction (Intermediate, Verified 03/28/24 10:58) Vomiting hydrocodone [From Vicodin] Adverse Reaction (Intermediate, Verified 03/28/24 10:58) Vomiting oxycodone [From Percocet] Adverse Reaction (Mild, Verified 03/28/24 10:58) vomiting Medication List - Last Reconciled 03/28/24 by Hayde Marvin MD acetaminophen ER 650 mg PO Q8H PRN 30 days atorvastatin 10 mg PO DAILY blood pressure monitor As directed cane As directed Donut pillow As directed fenofibrate 54 mg PO DAILY [heating pad massage As directed] heating pads (Advocate Heating Pad) As directed levothyroxine 50 mcg PO DAILY 90 days losartan 100 mg PO DAILY zkipebrfxoea-ysjs-cxdte acid 18-400 mg-mcg (Centrum) 1 tab PO DAILY naproxen 500 mg PO BID PRN 30 days pantoprazole 40 mg PO DAILY 90 days [pillow- neck As directed] polyethylene glycol 3350 (Miralax) 17 grams PO DAILY PRN 30 days verapamil ER 240 mg PO DAILY 90 days Tobacco use date assessed: 06/21/23 Fall risk assessment: No Falls in past year Last assessed Fall Risk: 03/28/24 Dental Screening Dental Screen Date: 03/28/24 Did you have a dental visit in the last 12 months?: No Did you have a dental problem in the last 6 months where you did not have access to dental care?: No Was dental information given to patient?: Patient has dentist HPI HPI Comments History of Present Illness Details This is a 78-year-old female that comes for her physical exam. Mammogram done 2023 was normal. Bone DXA scan done 2023 was normal. Colonoscopy done 2019 was normal. No need for Pap smears due to hysterectomy plus age. No chest pain or shortness on breath. Labs were discussed. She is aware of her low red blood cell mass and this will be monitor. Denies any active bleeding. She also complains of neck pain and will benefit from a neck p illow. [facility] Medical History (Updated 03/28/24 @ 11:37 by Hayde Marvin MD) Cataracts, bilateral Chronic GERD Postmenopausal Numbness and tingling Anemia Productive cough Polyarthralgia Mixed hyperlipidemia Vertigo Essential hypertension Hypothyroidism Right hip pain Left hip pain Hypertension Chronic pain Surgical History Hx of eye surgery Status post laser ablation of incompetent vein History of esophagogastroduodenoscopy (EGD) Hx of colonoscopy History of total abdominal hysterectomy and bilateral salpingo-oophorectomy History of cholecystectomy Family History Father Alzheimer disease Mother Stroke Other No family history of cancer Social History Household Members: None Housing: Apartment Are you a primary child care attendant school to a significant other at home: No Do you presently have visiting nurse or other home services: No Alcohol intake: never Patient Tobacco Use Status: Never used Tobacco e-Cigarette/Vaping Use: Never Used Second Hand Smoke Exposure: No service: No Current occupational status: retired Cognitive needs: No Hearing needs: No Vision needs: Yes Questionnaire PHQ-9 Over the last 2 weeks, how often have you been bothered by any of the following problems? 1. Little interest or pleasure in doing things: not at all 2. Feeling down, depressed, or hopeless: not at all 3. Trouble falling or staying asleep, or sleeping too much: not at all 4. Feeling tired or having little energy: not at all 5. Poor appetite or overeating: not at all 6. Feeling bad about yourself - or that you are a failure or have let yourself or your family down: not at all 7. Trouble concentrating on things, such as reading the newspaper or watching television: not at all 8. Moving or speaking so slowly that other people could have noticed. Or the opposite - being so fidgety or restless that you have been moving around a lot more than usual: not at all 9. Thoughts that you would be better off or of hurting yourself in some way: not at all Total score: 0 Depression Screening Interpretation: Negative Depression Screening Done: Yes 62770 - PHQ-9 Billing: Yes Source: Developed by Drs. Kendrick Mari, Mandy Willingham, Jasson Theodore and colleagues, with an educational douglas from [employer]. Thrive Questionnaire Date Thrive assessed: 03/28/24 I am a: Patient What is your living situation today?: I have a steady place to live Within the past 12 months, did the food you bought not last and you didn't have the money to get more?: Never true Within the past 12 months, did you worry whether your food would run out before you got money to buy more?: Never true Do you have trouble paying for medicines?: No Do you have trouble getting transportation to medical appointments?: No Do you have trouble paying your heating and electricity bill?: No Do you have trouble taking care of your child, family member or friend?: No Do you have trouble with day-to-day activities such as bathing, preparing meals, shopping, managing finances, etc.?: No Are you currently unemployed and looking for a job?: No Are you interested in more education?: No Please select the resources that you would like help with: None Currently or been in a relationship where the following occur: I choose not to answer THRIVE Score: 0 AUDIT C Alcohol Use Questionnaire (AUDIT-C) 1. How often do you have a drink containing alcohol?: Never Total Score: 0 Score Reviewed/Action Taken: No MARCO-7 AMB Questionnaire MARCO-7 Date MARCO - 7 assessed: 03/28/24 Feeling nervous, anxious, or on edge: 0 = Not at all Not being able to stop or control worryin = Several days Worrying too much about different things: 1 = Several days Trouble relaxin = Several days Being so restless that it is hard to sit still: 0 = Not at all Becoming easily annoyed or irritable: 1 = Several days Feeling afraid as if something awful might happen: 0 = Not at all Total MARCO-7 score (0-4 normal; 5-9 mild; 10-14 moderate; 15-21 severe): 4 Source: Developed by Drs. Kendrick Mari, Mandy Willingham, Jasson Theodore and colleagues, with an educational douglas from [employer]. MARCO-7 Assessment Billing MARCO-7 Assessment Tool: MARCO-7 Assessment 22834 Review of Systems Const All systems reviewed & are unremarkable except as noted in HPI and below ENT Reports neck pain Card Denies chest pain at rest, Denies chest pain with activity, Denies edema, Denies irregular heart rhythm, Denies claudication, Denies dyspnea, Denies dyspnea on exertion, Denies orthopnea, Denies paroxysmal nocturnal dyspnea and Denies slow heart rate Resp Denies cough, Denies dyspnea and Denies dyspnea on exertion Musc Reports neck pain Physical exam (Primary Care) Vital Signs: Last Vital Signs BP 134/70 03/28/24 10:46 BMI result Body Mass Index 33.9 BMI Assessment/Plan discussion: High BMI High, discussed plan: lifestyle, weight reduction, dietary and physical activity Tobacco/Smoking Status: Tobacco use Status Tobacco use date assessed 06/21/23 03/28/24 10:44 Patient Tobacco Use Status Never used Tobacco 03/28/24 10:44 e-Cigarette/Vaping Use Never Used 03/28/24 10:44 PHQ-9: PHQ-9 Score PHQ-9: Total score 0 03/28/24 11:03 Depression Screening Interpretation: Negative Thrive Assessment: Date of Thrive Assessment Date Thrive assessed 03/28/24 03/28/24 10:51 Currently or been in a relationship where the following occur: I choose not to answer HENWV Head: Yes normal to inspection, Yes normocephalic and Yes atraumatic Ears: external ears normal Eyes General: appearance normal, both eyes and all related structures Eyelids: Yes eyelids normal Conjunctivae: conjunctivae normal Neck Neck: Yes normal visual inspection and Yes supple Resp Effort & Inspection: normal respiratory effort Auscultation: clear to auscultation bilaterally Cardio Jugular venous distension: no JVD Rate: regular rate Rhythm: regular rhythm Heart sounds: S1 normal heart sound present and S2 normal heart sound present GI Inspection: Yes normal to inspection Palpation (GI): Soft to palpation and nontender Auscultation: normal bowel sounds Skin General skin exam: no rashes or lesions noted Neuro General: no focal motor deficits Extrem General: Yes full ROM Psych Appearance: grossly normal Office Procedures Flu Questionnaire Does the patient have a severe egg allergy?: No Does the patient have severe life threatening allergies?: No Does the patient have a fever or illness today?: No Has the patient ever had Guillain-[place] Syndrome?: No Has the patient ever had any past reaction to a flu shot?: No Immunizations Fluarix Triv [id number] (PF) 45 mcg (15 mcg x 3)/0.5 mL IM syringe Performing Provider: Hayde Marvin MD [facility] Administered by: LORI Alas on 03/28/24 11:16 Dose Route Admin Location Dispensed Lot Number Expiration Date NDC [employer] 0.5 mL IM Left Deltoid 0.5 mL [id number] 12/10/24 [id number] [employer] VIS Given Date VIS Provided VIS Publication Date 03/28/24 Single Vaccine 21 Eligibility Eligibility Date Funding Source Not [facility] Eligible 03/28/24 Private Coding Level of Care Code Est Pt Level 3 (47451) Est Pt Prev Care >65y(99713) Diagnoses Physical exam Z00.00 Degenerative disc disease, cervical M50.30 Additional Codes MARCO-7 Assessment Billing - MARCO-7 Assessment Tool: MARCO-7 Assessment 59191 ( [id number]) Time Spent (min) 34 Assessment & Plan Assessment & Plan (1) Physical exam: Code(s): Z00.00 - Encounter for general adult medical examination without abnormal findings Category: Medical Plan: Repeat in a year. (2) Degenerative disc disease, cervical: Code(s): M50.30 - Other cervical disc degeneration, unspecified cervical region Category: Medical Plan: Neck pillow order and faxed to [facility]. Orders: Orders Comprehensive Met. Panel 6 Months M50.30 - Other cervical disc degeneration, unspecified cervical region Thyroid Stimulating Hormone 6 Months E03.9 - Hypothyroidism, unspecified Influenza [id number] Immunization Today Z23 - Encounter for immunization Lipid Panel 6 Months E78.5 - Hyperlipidemia, unspecified Complete Blood Count Auto Diff 6 Months D64.9 - Anemia, unspecified Medications: Refilled atorvastatin 10 mg PO DAILY 90 tabs 3RF levothyroxine 50 mcg PO DAILY 90 days 90 caps 3RF losartan 100 mg PO DAILY 90 tabs 3RF E78.2 - Mixed hyperlipidemia verapamil ER 240 mg PO DAILY 90 days 90 tabs 3RF [pillow- neck] As directed 1 ea 0RF M50.30 - Other cervical disc degeneration, unspecified cervical region fenofibrate 54 mg PO DAILY 90 tabs 3RF E78.2 - Mixed hyperlipidemia acetaminophen ER 650 mg PO Q8H 30 days PRN 90 tabs 3RF pain
[2024-03-28 10:46] VITALS: BP 134/70; BMI 33.9
== END 2024-03-28 11:17 | disposition home or self-care (01) ==
PROVIDERS: PCP Internal Medicine; Visit Provider Internal Medicine
DX: Z00.00 Encounter for general adult medical examination without abnormal findings (principal); M50.30 Other cervical disc degeneration, unspecified cervical region

== ENCOUNTER → 2024-03-28 10:43 | Outpatient (BNVA) | payer OTHER, SELFPAY | PROVIDERS: PCP Internal Medicine; Visit Provider Internal Medicine | DX: Z00.01 Encounter for general adult medical examination with abnormal findings (principal); Z23 Encounter for immunization; M50.30 Other cervical disc degeneration, unspecified cervical region | CPT/HCPCS: 90471; 90656; 96127; 99397 ==

== ENCOUNTER 2024-04-05 12:27 | Outpatient (AMB) | payer OTHER, SELFPAY ==
--- NOTE | 2024-04-05 13:11 | A.OFFVIS_ITS ---
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 Intake Note: New Patient presents for initial visit for uti Urology Medications: none Blood Thinner: none PVR: 0ml's Underwater Photographer Required: Yes Underwater Photographer Services: Underwater Photographer Present Underwater Photographer Name: [id number] Accompanied by: Self / Same As Patient Allergies clarithromycin [CLARITHROMYCIN] Allergy (Intermediate, Verified 04/05/24 13:48) Rash hydrochlorothiazide [HYDROCHLOROTHIAZIDE] Allergy (Intermediate, Verified 04/05/24 13:48) Rash Sulfa (Sulfonamide Antibiotics) Allergy (Intermediate, Verified 04/05/24 13:48) Rash tramadol [TRAMADOL] Allergy (Intermediate, Verified 04/05/24 13:48) Rash, vomiting moexipril [From Univasc] Allergy (Mild, Verified 04/05/24 13:48) lip deviation valsartan [From Diovan] Allergy (Mild, Verified 04/05/24 13:48) Rash amlodipine Adverse Reaction (Severe, Verified 04/05/24 13:48) leg swelling acetaminophen [From Vicodin] Adverse Reaction (Intermediate, Verified 04/05/24 13:48) Vomiting hydrocodone [From Vicodin] Adverse Reaction (Intermediate, Verified 04/05/24 13:48) Vomiting oxycodone [From Percocet] Adverse Reaction (Mild, Verified 04/05/24 13:48) vomiting Medication List - Last Reconciled 04/05/24 by MAGNO Sanchez acetaminophen ER 650 mg PO Q8H PRN 30 days atorvastatin 10 mg PO DAILY blood pressure monitor As directed cane As directed Donut pillow As directed fenofibrate 54 mg PO DAILY [heating pad massage As directed] heating pads (Advocate Heating Pad) As directed levothyroxine 50 mcg PO DAILY 90 days losartan 100 mg PO DAILY czyeesiuxuch-hnxn-ygxhc acid 18-400 mg-mcg (Centrum) 1 tab PO DAILY naproxen 500 mg PO BID PRN 30 days pantoprazole 40 mg PO DAILY 90 days [pillow- neck As directed] polyethylene glycol 3350 (Miralax) 17 grams PO DAILY PRN 30 days verapamil ER 240 mg PO DAILY 90 days HPI Comments Details: Vidhi is a very pleasant 78-year-old Dutch-speaking female patient of Dr. Adilia parekh. She has a past medical history of GERD, anemia, polyarthralgia, hyperlipidemia, vertigo, hypertension, hypothyroidism, and chronic pain. She presents to the office today as a new patient for recurrent urinary tract infections. In discussion with the patient today she reports having followed up with PCP a few times for ongoing lower urinary tract symptoms she had been experiencing at which time she was given antibiotics for potential urinary tract infections and recommendation was made for urology referral for further assessment evaluation. In review of patient's chart it appears urine cultures 04/04 and 11/03 both noted no growth. She reports lower urinary tract symptoms of urinary urgency and frequency she had been experiencing has since subsided. She currently denies any bothersome urinary issues or concerns. In office urinalysis results reviewed with the patient today. PVR 0 mL. When asked she does report a longstanding history of constipation. We discussed at length p otential causes of recurrent urinary tract infections. We discussed obtaining retroperitoneal ultrasound for further assessment evaluation. She denies urinary urgency, urinary frequency, incontinence, nocturia, hematuria, dysuria, foul smelling urine, changes to urinary stream, flank pain, fever, and or chills. She is happy with her current voiding parameters. She otherwise offers no other issues or concerns at this time. [facility] Medical History Cataracts, bilateral Chronic GERD Postmenopausal Numbness and tingling Anemia Productive cough Polyarthralgia Mixed hyperlipidemia Vertigo Essential hypertension Hypothyroidism Right hip pain Left hip pain Hypertension Chronic pain Surgical History Hx of eye surgery Status post laser ablation of incompetent vein History of esophagogastroduodenoscopy (EGD) Hx of colonoscopy History of total abdominal hysterectomy and bilateral salpingo-oophorectomy History of cholecystectomy Family History Father Alzheimer disease Mother Stroke Other No family history of cancer Social History Household Members: None Housing: Apartment Are you a primary career services representative to a significant other at home: No Do you presently have visiting nurse or other home services: No Alcohol intake: never Patient Tobacco Use Status: Never used Tobacco e-Cigarette/Vaping Use: Never Used Second Hand Smoke Exposure: No service: No Current occupational status: retired Cognitive needs: No Hearing needs: No Vision needs: Yes Review of Systems Const All systems reviewed & are unremarkable except as noted in HPI and below Physical Exam Const General: cooperative, healthy appearing, comfortable, no acute distress, well developed, alert and awake Orientation/consciousness: patient oriented x3 Limitations: no limitations HEENT Head: Yes normal to inspection, Yes normocephalic and Yes atraumatic Ears: hearing grossly normal bilaterally Eyes General: appearance normal, both eyes and all related structures Neck Neck: Yes normal visual inspection and Yes trachea midline Chest Chest palpation & inspection: normal inspection of the chest Resp Effort & Inspection: normal respiratory effort and able to speak in complete sentences Cardio Rate: regular rate GI Inspection: Yes normal to inspection General: Yes no CVA tenderness Back/Spine/Pelvis Back: no CVA tenderness Skin General skin exam: no rashes or lesions noted Neuro General: patient oriented x3 Extrem General: Yes normal to inspection Psych Appearance: grossly normal and well kempt Mental Status: mental status grossly normal Speech and movement: Normal speech and movement present and Clear speech present Affect: normal affect Attitude: cooperative Thought process: Normal thought process present Thought content: Normal thought content present Insight: Fair insight present (Psych) Judgement: Fair judgement present (Psych) Office Procedures Post Void Residual Post Residual Void Post Void Residual (PVR): 0 [id number] Void Residual by ultrasound Results AMB Urinalysis, Automated UA Leukoctes 15 Des/uL Last Edit by Annabel Torres on 04/05/24 13:51 UA Nitrite Last Edit by Annabel Torres on 04/05/24 13:51 UA Urobilinogen 1 mg/dL Last Edit by Annabel Torres on 04/05/24 13:51 UA Protein 15 mg/dL Last Edit by Annabel Torres on 04/05/24 13:51 UA pH 6.0 Last Edit by Annabel Torres on 04/05/24 13:51 UA Blood 0 Danyel/uL Last Edit by Annabel Torres on 04/05/24 13:51 UA Specific [place] 1.020 Last Edit by Annabel Torres on 04/05/24 13:51 UA Ketone Negative Last Edit by Annabel Torres on 04/05/24 13:51 UA Bilirubin 0 mg/dL Last Edit by Annabel Torres on 04/05/24 13:51 UA Glucose 0 mg/dL Last Edit by Annabel Torres on 04/05/24 13:51 Assessment & Plan Assessment & Plan (1) Recurrent UTI: Code(s): N39.0 - Urinary tract infection, site not specified Category: Medical Plan In office today; as noted above. PVR 0 mL. Discussed at length potential causes of lower urinary tract symptoms patient had been experiencing. She currently denies any bothersome urinary issues or concerns. Will obtain retroperitoneal ultrasound for further assessment evaluation. Discussed possible near future in office cystoscopy if symptoms arise. Discussed UTI prevention with D mannose supplement, vitamin-C, increasing fluid intake, behavioral therapy with timed voiding, perineal hygiene and postcoital voiding, and management of constipation with stool softeners and increased fiber intake. Follow-up in 3 months with imaging and PVR; or sooner with any issues, concerns, and or questions. Orders: Orders AMB Post Void Residual by ultrasound Today N39.0 - Urinary tract infection, site not specified US retroperitoneal comp Today N39.0 - Urinary tract infection, site not specified AMB Urinalysis Automated Today Z13.9 - Encounter for screening, unspecified Patient Instructions: The patient had an opportunity to ask questions regarding the treatment plan. All questions were answered. Physical exam, labs, and imaging were discussed and reviewed in detail. As well as risks, benefits, and discussion of treatment choices. No major barriers to understanding were identified. The patient expressed understanding and agreement with the above treatment plan. The patient was made aware they should contact our office by phone for worsening of their current condition, the appearance of new symptoms, or with any questions or concerns. Compliance is encouraged with any medications and follow up testing that is ordered. It is a privilege to be allowed the opportunity to participate in? your urological care.? Again, if you have any questions or concerns If you have any questions or concerns please do not hesitate to contact me. The office is [phone]. This note is constructed using voice recognition software. While every effort has been made to ensure accuracy director funeral errors may have been included. Yours sincerely, LUL Sanchez-[facility] Coding Level of Care Code New Pt Level 3 (27098) Diagnoses Recurrent UTI N39.0 CPT Codes Post Residual Void - PVR CPT Code: 11198-Nyhz Void Residual by ultrasound ([id number])
== END 2024-04-05 13:49 | disposition home or self-care (01) ==
PROVIDERS: PCP Internal Medicine; Visit Provider Nurse Practitioner Family
DX: Z13.9 Encounter for screening, unspecified (principal); N39.0 Urinary tract infection, site not specified
CPT/HCPCS: 99203

== ENCOUNTER → 2024-04-05 12:27 | Outpatient (BNVA) | payer OTHER, SELFPAY | PROVIDERS: PCP Internal Medicine; Visit Provider Nurse Practitioner Family | DX: N39.0 Urinary tract infection, site not specified (principal); K59.00 Constipation, unspecified | CPT/HCPCS: 51798; 81003; 99202 ==

== ENCOUNTER 2024-05-31 12:06 | Outpatient (REF) | payer OTHER, SELFPAY ==
[2024-05-31 14:10] LABS: Prothrombin Time 11.4 SEC (10.9-12.4)
[2024-05-31 14:34] LABS: Alanine Aminotransferase 14 U/L (0-31); Albumin Level 4.4 g/dL (3.5-5.0); Alkaline Phosphatase 82 U/L (39-117); Aspartate Amino Transferase 24 U/L (5-31); Bilirubin Direct 0.3 mg/dL (0.0-0.5); Bilirubin Total 0.8 mg/dL (0.0-1.0); Total Protein 7.4 g/dL (6.5-8.0)
[2024-06-01 03:41] LABS: HBsAGNum1 0.36 S/CO (0.00-0.99); Hepatitis B Surface Antigen Negative (Negative); ~HepC Num1 0.13 S/CO (0.00-0.79); ~Hepatitis B Surface Antibody NONREACTIVE (Nonreactive); ~Hepatitis C Antibody Nonreactive (Nonreactive)
[2024-06-01 03:46] LABS: Hepatitis A Antibody IgG REACTIVE (Nonreactive); ~Hepatitis A Antibody IgG 11.37 S/CO (0.00-0.99)
[2024-06-01 13:09] LABS: Prot Elec - Albumin 4.4 g/dL (3.8-4.8); Prot Elec - Alpha1 0.3 g/dL (0.2-0.3); Prot Elec - Alpha2 0.7 g/dL (0.5-0.9); Prot Elec - Beta 1 0.5 g/dL (0.4-0.6); Prot Elec - Beta 2 0.5 g/dL (0.2-0.5); Prot Elec - Gamma 0.9 g/dL (0.8-1.7); Prot Elec - Total Protein 7.2 g/dL (6.1-8.1)
[2024-06-01 19:24] LABS: Transglutaminase IgA <1.0 U/mL
[2024-06-02 13:03] LABS: Immunoglobulin A 266 mg/dL (70-320)
[2024-06-04 14:43] LABS: Anti Nuclear Antibody Screen NEGATIVE (NEGATIVE)
[2024-06-08 14:14] LABS: Smooth Muscle Antibody <20 U (<20)
[2024-06-09 22:59] LABS: FIB-ALT 10 U/L (6-29); FIB-Alpha-2-Macroglobulin 191 mg/dL (106-279); FIB-Apolipoprotein A1 182 mg/dL (101-198); FIB-GGT 26 U/L (3-65); FIB-Haptoglobin 134 mg/dL (43-212); FIB-Total Bilirubin 0.7 mg/dL (0.2-1.2); Liver Fibrosis Score 0.26; Liver Fibrosis Stage F0-F1; Nec Inflam Act Grade A0; Nec Inflam Act Score 0.02; Reference ID 5266283
== END 2024-05-31 12:07 | disposition home or self-care (01) ==
LOC: HO.LAB 12:06
PROVIDERS: PCP Internal Medicine; Visit Provider Internal Medicine Gastroenterology
DX: K74.60 Unspecified cirrhosis of liver (principal)
CPT/HCPCS: 36415; 80076; 81596; 82784; 84165; 85610; 86015; 86038; 86364; 86706; 86708; 86803; 87340

== ENCOUNTER 2024-07-02 12:38 | Outpatient (REF) | payer OTHER, SELFPAY ==
--- NOTE | ~2024-07-02 | US_ITS ---
CLINICAL HISTORY: N39.0 - Urinary tract infection, site not specified US Renal Comparison: 2023 Findings: Right kidney normal size and echotexture, 10.6 cm length. Left kidney normal size and echotexture, 10.7 cm length. No hydronephrosis ( mildly prominent bilateral renal pelvises noted) or renal mass lesion. Urinary bladder is unremarkable. Prevoid volume 241 mL. Postvoid volume 11 mL. Bilateral ureteral jets are visualized. IMPRESSION: No evidence of hydronephrosis This document has been electronically signed by: Lorraine Larson MD on 07/03/2024 06:37:04
== END 2024-07-02 12:39 | disposition home or self-care (01) ==
LOC: HO.US 12:38
PROVIDERS: PCP Internal Medicine; Visit Provider Nurse Practitioner Family
DX: N39.0 Urinary tract infection, site not specified (principal)
CPT/HCPCS: 76770

== ENCOUNTER → 2024-07-02 12:39 | Outpatient (BNV) | payer OTHER, SELFPAY | PROVIDERS: PCP Internal Medicine; Visit Provider Radiology Diagnostic Radiology | DX: N39.0 Urinary tract infection, site not specified (principal) | CPT/HCPCS: 76770 ==

== ENCOUNTER 2024-07-09 09:58 | Outpatient (AMB) | payer OTHER, SELFPAY ==
--- NOTE | 2024-07-09 10:32 | A.OFFVIS_ITS ---
Intake Visit Reasons: 3M US(set) Intake Note: Patient presents today for follow up on: recurrent uti and ultrasound results * imaging completed: 07/02/24 Urology Medications: none Blood Thinner: none * PVR: 0ml's Sewage Plant Attendant Required: Yes Sewage Plant Attendant Services: Sewage Plant Attendant Present Sewage Plant Attendant Name: [id number] Accompanied by: Self / Same As Patient Allergies clarithromycin [CLARITHROMYCIN] Allergy (Intermediate, Verified 07/09/24 10:48) Rash hydrochlorothiazide [HYDROCHLOROTHIAZIDE] Allergy (Intermediate, Verified 07/09/24 10:48) Rash Sulfa (Sulfonamide Antibiotics) Allergy (Intermediate, Verified 07/09/24 10:48) Rash tramadol [TRAMADOL] Allergy (Intermediate, Verified 07/09/24 10:48) Rash, vomiting moexipril [From Univasc] Allergy (Mild, Verified 07/09/24 10:48) lip deviation valsartan [From Diovan] Allergy (Mild, Verified 07/09/24 10:48) Rash amlodipine Adverse Reaction (Severe, Verified 07/09/24 10:48) leg swelling acetaminophen [From Vicodin] Adverse Reaction (Intermediate, Verified 07/09/24 10:48) Vomiting hydrocodone [From Vicodin] Adverse Reaction (Intermediate, Verified 07/09/24 10:48) Vomiting oxycodone [From Percocet] Adverse Reaction (Mild, Verified 07/09/24 10:48) vomiting Medication List - Last Reconciled 07/09/24 by MAGNO Sanchez acetaminophen ER 650 mg PO Q8H PRN 30 days atorvastatin 10 mg PO DAILY blood pressure monitor As directed cane As directed Donut pillow As directed fenofibrate 54 mg PO DAILY [heating pad massage As directed] heating pads ([employer] Heating Pad) As directed levothyroxine 50 mcg PO DAILY 90 days losartan 100 mg PO DAILY jpftlimnplwj-prne-qlsqq acid 18-400 mg-mcg (Centrum) 1 tab PO DAILY naproxen 500 mg PO BID PRN 30 days pantoprazole 40 mg PO DAILY 90 days [pillow- neck As directed] polyethylene glycol 3350 (Miralax) 17 grams PO DAILY PRN 30 days verapamil ER 240 mg PO DAILY 90 days HPI Comments Details: Vidhi is a very pleasant 78-year-old Omani-speaking female patient of Dr. Cowart. She has a past medical history of GERD, anemia, polyarthralgia, hyperlipidemia, vertigo, hypertension, hypothyroidism, and chronic pain. She presents to the office today for follow-up of her recurrent urinary tract infections. Of note, patient was seen approximately 3 months ago as a new patient for recurrent urinary tract infections at which time a retroperitoneal ultrasound was ordered for further assessment evaluation. These results reviewed with the patient today. 07/07 bilateral kidneys with no hydronephrosis, renal calculi or renal masses noted. The urinary bladder is unremarkable. Pre void bladder volume is approximately 240 mL. Postvoid bladder volume is approximately 10 mL. Bilateral ureteral jets are visualized. She continues to report intermittent lower urinary tract symptoms of urinary urgency, urinary frequency, and nocturia however feels she is managing these symptoms well independently. In review of patient's chart it appears urine cultures 04/04 and 11/03 both noted no growth. In office urinalysis results reviewed with the patient today. PVR 0 mL. When asked she does report a longstanding history of constipation. We discussed at length potential causes of recurrent urinary tract infections. She denies incontinence, hematuria, dysuria, foul smelling urine, changes to urinary stream, flank pain, fever, and or chills. She is happy with her current voiding parameters. We discussed at length potential causes of lower urinary tract symptoms patient was experiencing as well as further treatment options and risks and benefits of these treatment options. She otherwise offers no other issues or concerns at this time. [facility] Medical History Cataracts, bilateral Chronic GERD Postmenopausal Numbness and tingling Anemia Productive cough Polyarthralgia Mixed hyperlipidemia Vertigo Essential hypertension Hypothyroidism Right hip pain Left hip pain Hypertension Chronic pain Surgical History Hx of eye surgery Status post laser ablation of incompetent vein History of esophagogastroduodenoscopy (EGD) Hx of colonoscopy History of total abdominal hysterectomy and bilateral salpingo-oophorectomy History of cholecystectomy Family History Father Alzheimer disease Mother Stroke Other No family history of cancer Social History Household Members: None Housing: Apartment Are you a primary critical care unit nurse to a significant other at home: No Do you presently have visiting nurse or other home services: No Alcohol intake: never Patient Tobacco Use Status: Never used Tobacco e-Cigarette/Vaping Use: Never Used Second Hand Smoke Exposure: No service: No Current occupational status: retired Cognitive needs: No Hearing needs: No Vision needs: Yes Review of Systems Const All systems reviewed & are unremarkable except as noted in HPI and below Physical Exam Const General: cooperative, healthy appearing, comfortable, no acute distress, well developed, alert and awake Orientation/consciousness: patient oriented x3 Limitations: no limitations HEENT Head: Yes normal to inspection, Yes normocephalic and Yes atraumatic Ears: hearing grossly normal bilaterally Eyes General: appearance normal, both eyes and all related structures Neck Neck: Yes normal visual inspection and Yes trachea midline Chest Chest palpation & inspection: normal inspection of the chest Resp Effort & Inspection: normal respiratory effort and able to speak in complete sentences Cardio Rate: regular rate GI Inspection: Yes normal to inspection General: Yes no CVA tenderness Back/Spine/Pelvis Back: no CVA tenderness Skin General skin exam: no rashes or lesions noted Neuro General: patient oriented x3 Extrem General: Yes normal to inspection Psych Appearance: grossly normal and well kempt Mental Status: mental status grossly normal Speech and movement: Normal speech and movement present and Clear speech present Affect: normal affect Attitude: cooperative Thought process: Normal thought process present Thought content: Normal thought content present Insight: Fair insight present (Psych) Judgement: Fair judgement present (Psych) Office Procedures Post Void Residual Post Residual Void Post Void Residual (PVR): 0 [id number] Void Residual by ultrasound Results AMB Urinalysis, Automated UA Leukoctes 70 Des/uL Last Edit by Annabel Torres on 07/09/24 12:04 UA Nitrite Last Edit by Annabel Torres on 07/09/24 12:04 UA Urobilinogen 0.2 mg/dL Last Edit by Annabel Torres on 07/09/24 12:04 UA Protein 15 mg/dL Last Edit by Annabel Torres on 07/09/24 12:04 UA pH 6.0 Last Edit by Annabel Torres on 07/09/24 12:04 UA Blood 0 Danyel/uL Last Edit by Annabel Torres on 07/09/24 12:04 UA Specific Bells 1.020 Last Edit by Annabel Torres on 07/09/24 12:04 UA Ketone Last Edit by Annabel Torres on 07/09/24 12:04 UA Bilirubin 1 mg/dL Last Edit by Annabel Torres on 07/09/24 12:04 UA Glucose 0 mg/dL Last Edit by Annabel Torres on 07/09/24 12:04 Results Reviewed Results Reviewed: Laboratory Last Values Urine pH (Auto) 6.0 07/09/24 12:03 Specific Bells (Auto) 1.020 07/09/24 12:03 Urine Protein (Auto) 15 mg/dL 07/09/24 12:03 Glucose (UA)(Auto) 0 mg/dL 07/09/24 12:03 Urine Blood (Auto) 0 Danyel/uL 07/09/24 12:03 Urine Bilirubin (Auto) 1 mg/dL 07/09/24 12:03 Urine Urobilinogen (Auto) 0.2 mg/dL 07/09/24 12:03 Leukocyte Esterase (Auto) 70 Des/uL 07/09/24 12:03 Date of Service: 07/02/24 Procedure(s): US retroperitoneal comp Findings: Right kidney normal size and echotexture, 10.6 cm length. Left kidney normal size and echotexture, 10.7 cm length. No hydronephrosis ( mildly prominent bilateral renal pelvises noted) or renal mass lesion. Urinary bladder is unremarkable. Prevoid volume 241 mL. Postvoid volume 11 mL. Bilateral ureteral jets are visualized. IMPRESSION: No evidence of hydronephrosis Assessment & Plan Assessment & Plan (1) Recurrent UTI: Code(s): N39.0 - Urinary tract infection, site not specified Category: Medical (2) Nocturia: Code(s): R35.1 - Nocturia Category: Medical Plan In office urinalysis results reviewed with the patient today; as noted above. PVR 0 mL. Recent retroperitoneal ultrasound results reviewed with the patient today; as noted above. We discussed at length potential causes of lower urinary tract symptoms patient was experiencing as well as further treatment options and risks and benefits of these treatment options. Start Estrace cream as discussed and prescribed. She reports be happy with current voiding parameters. We discussed importance of limiting fluids 2-3 hours prior to bed to decrease episodes of nocturia. We discussed bladder triggers/irritants. Discussed UTI prevention with D mannose supplement, vitamin-C, increasing fluid intake, behavioral therapy with timed voiding, perineal hygiene and postcoital voiding, and management of constipation with stool softeners and increased fiber intake. Follow-up in 3 months with PVR; or sooner with any issues, concerns, and or questions. Orders: Orders AMB Urinalysis Automated Today Z13.9 - Encounter for screening, unspecified AMB Post Void Residual by ultrasound Today R35.1 - Nocturia Medications: New estradiol 0.01%(0.1mg/gram) (Estrace) Apply pea-sized amount to urethra daily x1 month; after 1 month then apply pea-sized amount 3 times per week to urethra. 1 g vaginal 3XW 42.5 grams 3RF 90 days Patient Instructions: The patient had an opportunity to ask questions regarding the treatment plan. All questions were answered. Physical exam, labs, and imaging were discussed and reviewed in detail. As well as risks, benefits, and discussion of treatment choices. No major barriers to understanding were identified. The patient expressed understanding and agreement with the above treatment plan. The patient was made aware they should contact our office by phone for worsening of their current condition, the appearance of new symptoms, or with any questions or concerns. Compliance is encouraged with any medications and follow up testing that is ordered. It is a privilege to be allowed the opportunity to participate in? your urological care.? Again, if you have any questions or concerns If you have any questions or concerns please do not hesitate to contact me. The office is [phone]. This note is constructed using voice recognition software. While every effort has been made to ensure accuracy valve maker errors may have been included. Yours sincerely, MAGNO Sanchez Coding Level of Care Code Est Pt Level 4 (83142) Diagnoses Recurrent UTI N39.0 Nocturia R35.1 CPT Codes Post Residual Void - PVR CPT Code: 77047-Rbpj Void Residual by ultrasound ([id number])
--- OUTSIDE RECORDS SUMMARY | 2024-07-09 14:32 | XMS_ITS | Clinical Summary ---
Author Organization [employer] Address [address] [place] [address] Care Team Providers Care Air Conditioning Supervisor Name Role Phone Unavailable Primary Care Provider Unavailabl e Social History Tobacco Use Types Packs/Day Years Used Date Smoking Tobacco: Never Assessed Comments Unknown Sex and Gender Information Value Date Recorded Sex Assigned at Female 04/12/2022 10:14 AM EDT Legal Sex Female 10:14 AM EDT Gender Identity Female 04/12/2022 10:14 AM EDT Sexual Orientation Don't know 04/12/2022 10 :14 AM EDT Plan of Treatment Health Maintenance Due Date Last Done Comments Depression Screening 1944 Alcohol/Substance Use Screening 1956 Tobacco Screening 1957 Zoster Vaccines (1 of 2) 1994 Pneumococcal Vaccine: 65+ Years (2 of 2 - PCV) 06/22/2017 06/22/2016, 04/03/2012 RSV Patients and Patients Aged 60 years or older (1 - 1-dose 75+ series) 09/06/2019 COVID-19 Vaccine (3 - season) 2024 03/17/2021, 08/14/2020 Influenza Vaccine (#1) 2024 , 04/10/2020, 03/19/2019, Additional history exists DTaP/Tdap/Td Vaccines (2 - Td or Tdap) 06/22/2026 06/22/2016, 12/26/2007 Hepatitis A Vaccines Aged Out 05/13/2009, 11/06/19 09 No longer eligible based on patient's age to complete this topic Hepatitis B Vaccines Completed 05/13/2009, 12/09/2008, 11/05/2008 HIB Vaccines Aged Out No longer eligi ble based on patient's age to complete this topic HPV Vaccines Aged Out No longer eligi ble based on patient's age to complete this topic IPV Vaccines Aged Out No longer eligi ble based on patient's age to complete this topic Meningococcal Vaccine Aged Out No lilly ky eligible based on patient's age to complete this topic RSV under 20 months Aged Out No longe r eligible based on patient's age to complete this topic Rotavirus Vaccines Aged Out No longer eligible based on patient's age to complete this topic
== END 2024-07-09 11:12 | disposition home or self-care (01) ==
PROVIDERS: PCP Internal Medicine; Visit Provider Nurse Practitioner Family
DX: N39.0 Urinary tract infection, site not specified (principal); R35.1 Nocturia; Z13.9 Encounter for screening, unspecified
CPT/HCPCS: 99214

== ENCOUNTER → 2024-07-09 09:58 | Outpatient (BNVA) | payer OTHER, SELFPAY | PROVIDERS: PCP Internal Medicine; Visit Provider Nurse Practitioner Family | DX: N39.0 Urinary tract infection, site not specified (principal); R35.1 Nocturia | CPT/HCPCS: 51798; 81003; 99212 ==

== ENCOUNTER 2024-09-13 11:36 | Outpatient (REF) | payer OTHER, SELFPAY ==
--- OUTSIDE RECORDS SUMMARY | 2024-09-13 12:54 | XMS_ITS | Clinical Summary ---
Author Organization [employer] Address [address] [place] [address] Care Team Providers Care Range Aide Name Role Phone Unavailable Primary Care Provider [...] Vaccines (1 of 2) 1994 Pneumococcal Vaccine: 50+ Years (2 of 2 - PCV) 06/22/2017 [...]
== END 2024-09-13 11:37 | disposition home or self-care (01) ==
LOC: HO.MAMMO 11:36
PROVIDERS: PCP Internal Medicine; Visit Provider Internal Medicine
DX: Z12.31 Encounter for screening mammogram for malignant neoplasm of breast (principal)
CPT/HCPCS: 77063; 77067

== ENCOUNTER → 2024-09-13 12:15 | Outpatient (BNV) | payer OTHER, SELFPAY | PROVIDERS: PCP Internal Medicine; Visit Provider Internal Medicine | DX: Z12.31 Encounter for screening mammogram for malignant neoplasm of breast (principal) | CPT/HCPCS: 77063; 77067 ==

== ENCOUNTER 2024-09-27 10:28 | Outpatient (AMB) | payer OTHER, SELFPAY ==
--- NOTE | 2024-09-27 10:31 | A.OFFPC_ITS ---
Vital Signs 09/27/24 10:38 Height 4 ft 11 in Weight 162 lb BMI 32.7 BP 136/70 Blood Pressure Location Lt brachial Position Sitting Pulse 73 Pulse Source Pulse Oximeter Pulse Oximetry (%) 96 Oxygen Delivery Method Room Air Intake Visit Reasons: Thyroid, lipids Intake Note: Patient here for a follow up thyroid, lipids Research Geologist Required: No Accompanied by: Self / Same As Patient Allergies clarithromycin [CLARITHROMYCIN] Allergy (Intermediate, Verified 09/27/24 10:59) Rash hydrochlorothiazide [HYDROCHLOROTHIAZIDE] Allergy (Intermediate, Verified 09/27/24 10:59) Rash Sulfa (Sulfonamide Antibiotics) Allergy (Intermediate, Verified 09/27/24 10:59) Rash tramadol [TRAMADOL] Allergy (Intermediate, Verified 09/27/24 10:59) Rash, vomiting moexipril [From Univasc] Allergy (Mild, Verified 09/27/24 10:59) lip deviation valsartan [From Diovan] Allergy (Mild, Verified 09/27/24 10:59) Rash amlodipine Adverse Reaction (Severe, Verified 09/27/24 10:59) leg swelling acetaminophen [From Vicodin] Adverse Reaction (Intermediate, Verified 09/27/24 10:59) Vomiting hydrocodone [From Vicodin] Adverse Reaction (Intermediate, Verified 09/27/24 10:59) Vomiting oxycodone [From Percocet] Adverse Reaction (Mild, Verified 09/27/24 10:59) vomiting Medication List - Last Reconciled 09/27/24 by Hayde Marvin MD acetaminophen ER 650 mg PO Q8H PRN 30 days atorvastatin 10 mg PO DAILY blood pressure monitor As directed cane As directed Donut pillow As directed estradiol 0.01%(0.1mg/gram) (Estrace) 1 g vaginal 3XW 90 days fenofibrate 54 mg PO DAILY [heating pad massage As directed] heating pads (Advocate Heating Pad) As directed levothyroxine 50 mcg PO DAILY 90 days losartan 100 mg PO DAILY jdsoiysglrzp-hwlq-rwmyv acid 18-400 mg-mcg (Centrum) 1 tab PO DAILY naproxen 500 mg PO BID PRN 30 days pantoprazole 40 mg PO DAILY 90 days [pillow- neck As directed] polyethylene glycol 3350 (Miralax) 17 grams PO DAILY PRN 30 days verapamil ER 240 mg PO DAILY 90 days Tobacco use date assessed: 09/27/24 Fall risk assessment: No Falls in past year Last assessed Fall Risk: 09/27/24 Dental Screening Dental Screen Date: 09/27/24 Did you have a dental visit in the last 12 months?: Yes Did you have a dental problem in the last 6 months where you did not have access to dental care?: No Was dental information given to patient?: Patient has dentist HPI HPI Comments History of Present Illness Details The patient is an 79-year-old female presenting with painful swelling in her hands and an ingrown toenail. She has reported severe pain in the hands, with difficulty closing them, and a burning sensation. The ingrown toenail is causing significant pain when wearing shoes, with redness in the affected area. Her medical history includes fibroids, osteopenia/osteoporosis monitoring, multiple drug allergies, hyperlipidemia, hypertension, fatty liver disease, and chronic constipation. Recent lab work was completed in March. She is on several medications including atorvastatin, fenofibrate, losartan, and levothyroxine. The patient is allergic to clarithromycin, sulfa drugs, hydrochlorothiazide, tramadol, valsartan, and amlodipine, with reports of rash in response. Vomiting occurs with vicodin and oxycodone. She receives routine mammograms and had a normal bone densitometry in 2023. The patient does not smoke or drink alcohol. Previous medical advice has included regular use of MiraLAX for constipation and dietary management for fatty liver disease. [facility] Medical History (Updated 09/27/24 @ 12:14 by Hayde Mavrin MD) Cataracts, bilateral Chronic GERD Postmenopausal Numbness and tingling Anemia Productive cough Polyarthralgia Mixed hyperlipidemia Vertigo Essential hypertension Hypothyroidism Right hip pain Left hip pain Hypertension Chronic pain Surgical History Hx of eye surgery Status post laser ablation of incompetent vein History of esophagogastroduodenoscopy (EGD) Hx of colonoscopy History of total abdominal hysterectomy and bilateral salpingo-oophorectomy History of cholecystectomy Family History Father Alzheimer disease Mother Stroke Other No family history of cancer Social History Household Members: None Housing: Apartment Are you a primary healthcare project manager to a significant other at home: No Do you presently have visiting nurse or other home services: No Alcohol intake: never Patient Tobacco Use Status: Never used Tobacco e-Cigarette/Vaping Use: Never Used Second Hand Smoke Exposure: No service: No Current occupational status: retired Cognitive needs: No Hearing needs: No Vision needs: Yes Questionnaire PHQ-9 Over the last 2 weeks, how often have you been bothered by any of the following problems? 1. Little interest or pleasure in doing things: not at all 2. Feeling down, depressed, or hopeless: not at all 3. Trouble falling or staying asleep, or sleeping too much: not at all 4. Feeling tired or having little energy: not at all 5. Poor appetite or overeating: not at all 6. Feeling bad about yourself - or that you are a failure or have let yourself or your family down: not at all 7. Trouble concentrating on things, such as reading the newspaper or watching television: not at all 8. Moving or speaking so slowly that other people could have noticed. Or the opposite - being so fidgety or restless that you have been moving around a lot more than usual: not at all 9. Thoughts that you would be better off or of hurting yourself in some way: not at all Total score: 0 Depression Screening Interpretation: Negative Depression Screening Done: Yes 09740 - PHQ-9 Billing: Yes Source: Developed by Drs. Kendrick Mari, Mandy Willingham, Jasson Theodore and colleagues, with an educational douglas from [employer]. Thrive Questionnaire Date Thrive assessed: 09/27/24 I am a: Patient What is your living situation today?: I have a steady place to live Within the past 12 months, did the food you bought not last and you didn't have the money to get more?: Never true Within the past 12 months, did you worry whether your food would run out before you got money to buy more?: Never true Do you have trouble paying for medicines?: No Do you have trouble getting transportation to medical appointments?: No Do you have trouble paying your heating and electricity bill?: No Do you have trouble taking care of your child, family member or friend?: No Do you have trouble with day-to-day activities such as bathing, preparing meals, shopping, managing finances, etc.?: No Are you currently unemployed and looking for a job?: No Are you interested in more education?: No Please select the resources that you would like help with: None Currently or been in a relationship where the following occur: I choose not to answer THRIVE Score: 0 AUDIT C Alcohol Use Questionnaire (AUDIT-C) 1. How often do you have a drink containing alcohol?: Never Total Score: 0 Score Reviewed/Action Taken: No MARCO-7 AMB Questionnaire MARCO-7 Date MARCO - 7 assessed: 09/27/24 Feeling nervous, anxious, or on edge: 0 = Not at all Not being able to stop or control worryin = Not at all Worrying too much about different things: 0 = Not at all Trouble relaxin = Not at all Being so restless that it is hard to sit still: 0 = Not at all Becoming easily annoyed or irritable: 0 = Not at all Feeling afraid as if something awful might happen: 0 = Not at all Total MARCO-7 score (0-4 normal; 5-9 mild; 10-14 moderate; 15-21 severe): 0 Source: Developed by Drs. Kendrick Mari, Mandy Willingham, Jasson Theodore and colleagues, with an educational douglas from [employer]. MARCO-7 Assessment Billing MARCO-7 Assessment Tool: MARCO-7 Assessment 43485 Review of Systems Const All systems reviewed & are unremarkable except as noted in HPI and below Card Denies chest pain at rest, Denies chest pain with activity, Denies edema, Denies irregular heart rhythm, Denies claudication, Denies dyspnea, Denies dyspnea on exertion, Denies orthopnea, Denies paroxysmal nocturnal dyspnea and Denies slow heart rate Resp Denies cough, Denies dyspnea and Denies dyspnea on exertion GI Denies abdominal pain, Denies change in bowel habits, Denies excessive flatus, Denies nausea and Denies vomiting Physical exam (Primary Care) Vital Signs: Last Vital Signs Pulse 73 09/27/24 10:38 BP 136/70 09/27/24 10:38 Pulse Ox 96 09/27/24 10:38 Oxygen Delivery Method Room Air 09/27/24 10:38 BMI result Body Mass Index 32.7 BMI Assessment/Plan discussion: High BMI High, discussed plan: lifestyle, weight reduction, dietary and physical activity Tobacco/Smoking Status: Tobacco use Status Tobacco use date assessed 09/27/24 09/27/24 10:44 Patient Tobacco Use Status Never used Tobacco 09/27/24 10:33 e-Cigarette/Vaping Use Never Used 09/27/24 10:33 PHQ-9: PHQ-9 Score PHQ-9: Total score 0 09/27/24 11:04 Depression Screening Interpretation: Negative Thrive Assessment: Date of Thrive Assessment Date Thrive assessed 09/27/24 09/27/24 10:33 Currently or been in a relationship where the following occur: I choose not to answer Resp Effort & Inspection: normal respiratory effort Auscultation: clear to auscultation bilaterally Cardio Jugular venous distension: no JVD Rate: regular rate Rhythm: regular rhythm Heart sounds: S1 normal heart sound present and S2 normal heart sound present Extrem General: Yes full ROM Coding Level of Care Code Est Pt Level 4 (67253) Complex EM visit Add On G2211 Diagnoses Polyarthralgia M25.50 Ingrown toenail L60.0 Hypothyroidism, unspecified type E03.9 Hypothyroidism type: unspecified Essential hypertension I10 Mixed hyperlipidemia E78.2 Additional Codes MARCO-7 Assessment Billing - MARCO-7 Assessment Tool: MARCO-7 Assessment 38963 ([id number]) PHQ-9 - 24021 - PHQ-9 Billing: Yes ([id number]) Time Spent (min) 23 Assessment & Plan Assessment & Plan (1) Polyarthralgia: Code(s): M25.50 - Pain in unspecified joint Category: Medical (2) Ingrown toenail: Code(s): L60.0 - Ingrowing nail Category: Medical (3) Hypothyroidism: Code(s): E03.9 - Hypothyroidism, unspecified Category: Medical Qualifiers: Hypothyroidism type: unspecified Qualified Code(s): E03.9 - Hypothyroidism, unspecified (4) Essential hypertension: Code(s): I10 - Essential (primary) hypertension Category: Medical (5) Mixed hyperlipidemia: Code(s): E78.2 - Mixed hyperlipidemia Category: Medical Plan The management plan includes a referral to rheumatology for the assessment of hand pain and to podiatry for ingrown toenail evaluation, starting antibiotics to reduce the infection in the toe. Continuing current medication protocols for hyperlipidemia and hypertension remains essential, ensuring adherence and monitoring for side effects given the patient's history of drug allergies. Maintenance of routine screenings and lifestyle interventions for fatty liver management is crucial. Routine follow-ups are planned subsequent to specialist reviews and outcomes, and the patient is advised on antibiotic use with meals to mitigate any side effects. Patient was informed and verbally consented to the use of an ambient scribe for clinic note documentation during this visit. I discussed with the patient the potential diagnoses of arthritis in her hands and explored the possibility of addressing the ingrown toenail via podiatry consultation. We reviewed the necessity of starting antibiotics to reduce the infection in the toe. The risks and benefits of the treatments, including the probability of side effects and the need for follow-up upon further specialist review, were outlined. Continued management of chronic conditions with adherence to medication was emphasized. Scheduled follow-ups and outlined actions were agreed upon. The patient was counseled on the importance of taking the antibiotic with food to prevent gastrointestinal discomfort, and anticipatory guidance regarding her chronic conditions was provided, reinforcing adherence to medication and dietary guidelines. Orders: Orders Lipid Panel 6 Months E78.5 - Hyperlipidemia, unspecified IRON PROFILE 6 Months D64.9 - Anemia, unspecified Thyroid Stimulating Hormone 6 Months E03.9 - Hypothyroidism, unspecified Comprehensive [place]. Panel Fast 6 Months I10 - Essential (primary) hypertension Vitamin D 25-OH Total 6 Months E55.9 - Vitamin D deficiency, unspecified Complete Blood Count Auto Diff 6 Months D64.9 - Anemia, unspecified Magnesium 6 Months Z79.899 - Other buttermaker (current) drug therapy Referrals Rheumatology Referral M25.50 - Pain in unspecified joint Podiatry Referral L60.0 - Ingrowing nail Medications: New cephalexin 500 mg PO Q12H 14 caps 0RF 7 days Patient Instructions: - Take the prescribed antibiotic with food to prevent nausea. - Schedule and attend referral appointments with rheumatology and podiatry. - Continue current medications as directed for cholesterol and blood pressure. - Follow the recommended diet and lifestyle changes for fatty liver management. - Attend routine mammograms and future densitometry screening as advised. - Report any new drug reactions or side effects immediately. - Seek care if symptoms worsen or new issues arise.
[2024-09-27 10:38] VITALS: BP 136/70; PULSE 73; O2SAT 96; BMI 32.7
--- OUTSIDE RECORDS SUMMARY | 2024-09-27 12:35 | XMS_ITS | Clinical Summary ---
Author Organization [employer] Address [address] [place] [address] Care Team Providers Care Audio Visual Director Name Role Phone Unavailable Primary Care Provider [...]
== END 2024-09-27 11:09 | disposition home or self-care (01) ==
LOC: HO.HMCH 10:29
PROVIDERS: PCP Internal Medicine; Visit Provider Internal Medicine
DX: M25.50 Pain in unspecified joint (principal); L60.0 Ingrowing nail; E03.9 Hypothyroidism, unspecified; I10 Essential (primary) hypertension; E78.2 Mixed hyperlipidemia

== ENCOUNTER → 2024-09-27 10:28 | Outpatient (BNVA) | payer OTHER, SELFPAY | PROVIDERS: PCP Internal Medicine; Visit Provider Internal Medicine | DX: M79.642 Pain in left hand (principal); M79.641 Pain in right hand; L60.0 Ingrowing nail; E03.9 Hypothyroidism, unspecified; I10 Essential (primary) hypertension; E78.2 Mixed hyperlipidemia | CPT/HCPCS: 96127; 99212 ==

== ENCOUNTER 2024-10-11 10:27 | Outpatient (AMB) | payer OTHER, SELFPAY ==
--- NOTE | 2024-10-11 10:30 | A.OFFVIS_ITS ---
Intake Visit Reasons: 3m/PVR Intake Note: Patient presents today for follow up on: recurrent uti and nocturia Urology Medications: none Blood Thinner: none * PVR: Outside Plant Cable Engineer Required: Yes Outside Plant Cable Engineer Name: Majo [id number] Accompanied by: Self / Same As Patient Allergies clarithromycin [CLARITHROMYCIN] Allergy (Intermediate, Verified 10/11/24 10:58) Rash hydrochlorothiazide [HYDROCHLOROTHIAZIDE] Allergy (Intermediate, Verified 10/11/24 10:58) Rash Sulfa (Sulfonamide Antibiotics) Allergy (Intermediate, Verified 10/11/24 10:58) Rash tramadol [TRAMADOL] Allergy (Intermediate, Verified 10/11/24 10:58) Rash, vomiting moexipril [From Univasc] Allergy (Mild, Verified 10/11/24 10:58) lip deviation valsartan [From Diovan] Allergy (Mild, Verified 10/11/24 10:58) Rash amlodipine Adverse Reaction (Severe, Verified 10/11/24 10:58) leg swelling acetaminophen [From Vicodin] Adverse Reaction (Intermediate, Verified 10/11/24 10:58) Vomiting hydrocodone [From Vicodin] Adverse Reaction (Intermediate, Verified 10/11/24 10:58) Vomiting oxycodone [From Percocet] Adverse Reaction (Mild, Verified 10/11/24 10:58) vomiting Medication List - Last Reconciled 10/11/24 by MAGNO Sanchez acetaminophen ER 650 mg PO Q8H PRN 30 days atorvastatin 10 mg PO DAILY blood pressure monitor As directed cane As directed Donut pillow As directed estradiol 0.01%(0.1mg/gram) (Estrace) 1 g vaginal 3XW 90 days fenofibrate 54 mg PO DAILY [heating pad massage As directed] heating pads (Advocate Heating Pad) As directed levothyroxine 50 mcg PO DAILY 90 days losartan 100 mg PO DAILY kabvrbkrrgfh-txxq-dlugw acid 18-400 mg-mcg (Centrum) 1 tab PO DAILY naproxen 500 mg PO BID PRN 30 days pantoprazole 40 mg PO DAILY 90 days [pillow- neck As directed] polyethylene glycol 3350 (Miralax) 17 grams PO DAILY PRN 30 days verapamil ER 240 mg PO DAILY 90 days HPI Comments Details: Vidhi is a very pleasant 79-year-old [place]-speaking female patient of Dr. Cowart. She has a past medical history of GERD, anemia, polyarthralgia, hyperlipidemia, vertigo, hypertension, hypothyroidism, and chronic pain. She presents to the office today for follow-up of her recurrent urinary tract infections. In discussion with the patient today she reports to be doing and feeling well. She denies having had any bothersome urinary issues or concerns since her last office visit here. Previous workup has included a retroperitoneal ultrasound noting 07/07 bilateral kidneys with no hydronephrosis, renal calculi or renal masses noted. The urinary bladder is unremarkable. Pre void bladder volume is approximately 240 mL. Postvoid bladder volume is approximately 10 mL. Bilateral ureteral jets are visualized. In office urin alysis results reviewed with the patient today. PVR 188mL. When asked she does report a longstanding history of constipation. We discussed at length potential causes of recurrent urinary tract infections. She had been prescribed Estrace cream for suppression therapy for recurrent urinary tract infections however she reports she does not feel she needs to utilize this. We discussed increase in PVR noted during today's office visit of 188 mL. We discussed correlation of incomplete bladder emptying and recurrent urinary tract infections. We discussed lifestyle modifications such as double voiding verses trial of low- dose alpha-fatoumata. When asked she denies urgency, urinary frequency, incontinence, nocturia, hematuria, dysuria, foul smelling urine, changes to urinary stream, flank pain, fever, and or chills. She is happy with her current voiding parameters. She otherwise offers no other issues or concerns at this time. [facility] Medical History Cataracts, bilateral Chronic GERD Postmenopausal Numbness and tingling Anemia Productive cough Polyarthralgia Mixed hyperlipidemia Vertigo Essential hypertension Hypothyroidism Right hip pain Left hip pain Hypertension Chronic pain Surgical History Hx of eye surgery Status post laser ablation of incompetent vein History of esophagogastroduodenoscopy (EGD) Hx of colonoscopy History of total abdominal hysterectomy and bilateral salpingo-oophorectomy History of cholecystectomy Family History Father Alzheimer disease Mother Stroke Other No family history of cancer Social History Household Members: None Housing: Apartment Are you a primary critical care transport nurse to a significant other at home: No Do you presently have visiting nurse or other home services: No Alcohol intake: never Patient Tobacco Use Status: Never used Tobacco e-Cigarette/Vaping Use: Never Used Second Hand Smoke Exposure: No service: No Current occupational status: retired Cognitive needs: No Hearing needs: No Vision needs: Yes Review of Systems Const All systems reviewed & are unremarkable except as noted in HPI and below Physical Exam Const General: cooperative, healthy appearing, comfortable, no acute distress, well developed, alert and awake Orientation/consciousness: patient oriented x3 Limitations: no limitations HEENT Head: Yes normal to inspection, Yes normocephalic and Yes atraumatic Ears: hearing grossly normal bilaterally Eyes General: appearance normal, both eyes and all related structures Neck Neck: Yes normal visual inspection and Yes trachea midline Chest Chest palpation & inspection: normal inspection of the chest Resp Effort & Inspection: normal respiratory effort and able to speak in complete sentences Cardio Rate: regular rate GI Inspection: Yes normal to inspection General: Yes no CVA tenderness Back/Spine/Pelvis Back: no CVA tenderness Skin General skin exam: no rashes or lesions noted Neuro General: patient oriented x3 Extrem General: Yes normal to inspection Psych Appearance: grossly normal and well kempt Mental Status: mental status grossly normal Speech and movement: Normal speech and movement present and Clear speech present Affect: normal affect Attitude: cooperative Thought process: Normal thought process present Thought content: Normal thought content present Insight: Fair insight present (Psych) Judgement: Fair judgement present (Psych) Office Procedures Post Void Residual Post Residual Void Post Void Residual (PVR): 188 [id number] Void Residual by ultrasound Results AMB Urinalysis, Automated UA Leukoctes 0 Des/uL Last Edit by Annabel Torres on 10/11/24 10:44 UA Nitrite Last Edit by Annabel Torres on 10/11/24 10:44 UA Urobilinogen 0.2 mg/dL Last Edit by Annabel Solisdina on 10/11/24 10:44 UA Protein 0 mg/dL Last Edit by Annabel Irmadina on 10/11/24 10:44 UA pH 6.0 Last Edit by Rosanneben Solisdina on 10/11/24 10:44 UA Blood 0 Danyel/uL Last Edit by Annabel Torres on 10/11/24 10:44 UA Specific [place] 1.025 Last Edit by Dwaynegregory Irmadina on 10/11/24 10:44 UA Ketone Last Edit by Annabel Torres on 10/11/24 10:44 UA Bilirubin 0 mg/dL Last Edit by Annabel Torres on 10/11/24 10:44 UA Glucose 0 mg/dL Last Edit by Annabel Torres on 10/11/24 10:44 Results Reviewed Results Reviewed: Laboratory Last Values Urine pH (Auto) 6.0 10/11/24 10:36 Specific [place] (Auto) 1.025 10/11/24 10:36 Urine Protein (Auto) 0 mg/dL 10/11/24 10:36 Glucose (UA)(Auto) 0 mg/dL 10/11/24 10:36 Urine Blood (Auto) 0 Danyel/uL 10/11/24 10:36 Urine Bilirubin (Auto) 0 mg/dL 10/11/24 10:36 Urine Urobilinogen (Auto) 0.2 mg/dL 10/11/24 10:36 Leukocyte Esterase (Auto) 0 Des/uL 10/11/24 10:36 Assessment & Plan Assessment & Plan (1) Recurrent UTI: Code(s): N39.0 - Urinary tract infection, site not specified Category: Medical (2) Incomplete bladder emptying: Code(s): R33.9 - Retention of urine, unspecified Category: Medical Plan In office urinalysis results reviewed with the patient today; as noted above. PVR 188 mL. We discussed potential causes of of incomplete bladder emptying and further treatment options and risks and benefits of these treatment options. She currently denies any bothersome urinary issues or concerns. She reports be happy with current voiding parameters. Will continue with surveillance monitoring. Discussed UTI prevention with D mannose supplement, vitamin-C, increasing fluid intake, behavioral therapy with timed voiding, perineal hygiene and postcoital voiding, and management of constipation with stool softeners and increased fiber intake. Follow-up in 6 months with PVR; or sooner with any issues, concerns, and or questions. Orders: Orders AMB Urinalysis Automated Today Z13.9 - Encounter for screening, unspecified AMB Post Void Residual by ultrasound Today N39.0 - Urinary tract infection, site not specified Patient Instructions: The patient had an opportunity to ask questions regarding the treatment plan. All questions were answered. Physical exam, labs, and imaging were discussed and reviewed in detail. As well as risks, benefits, and discussion of treatment choices. No major barriers to understanding were identified. The patient expressed understanding and agreement with the above treatment plan. The patient was made aware they should contact our office by phone for worsening of their current condition, the appearance of new symptoms, or with any questions or concerns. Compliance is encouraged with any medications and follow up testing that is ordered. It is a privilege to be allowed the opportunity to participate in? your urological care.? Again, if you have any questions or concerns If you have any questions or concerns please do not hesitate to contact me. The office is [phone]. This note is constructed using voice recognition software. While every effort has been made to ensure accuracy ticket dispenser changer errors may have been included. Yours sincerely, MAGNO Sanchez Coding Level of Care Code Est Pt Level 3 (40007) Complex EM visit Add On G2211 Diagnoses Recurrent UTI N39.0 Incomplete bladder emptying R33.9 CPT Codes Post Residual Void - PVR CPT Code: 87931-Yzdi Void Residual by ultrasound ([id number])
--- OUTSIDE RECORDS SUMMARY | 2024-10-11 11:55 | XMS_ITS | Clinical Summary ---
Author Organization [facility] Address [address] [place] [address] Care Team Providers Care Retail Worker Name Role Phone Unavailable Primary Care Provider [...]
== END 2024-10-11 10:56 | disposition home or self-care (01) ==
LOC: HO.HUSH 10:27
PROVIDERS: PCP Internal Medicine; Visit Provider Nurse Practitioner Family
DX: N39.0 Urinary tract infection, site not specified (principal); R33.9 Retention of urine, unspecified; Z13.9 Encounter for screening, unspecified
CPT/HCPCS: 99213; G2211

== ENCOUNTER → 2024-10-11 10:27 | Outpatient (BNVA) | payer OTHER, SELFPAY | PROVIDERS: PCP Internal Medicine; Visit Provider Nurse Practitioner Family | DX: N39.0 Urinary tract infection, site not specified (principal); R33.9 Retention of urine, unspecified | CPT/HCPCS: 51798; 81003; 99212 ==

== ENCOUNTER 2024-11-08 09:14 | Outpatient (AMB) | payer OTHER, SELFPAY ==
--- NOTE | 2024-11-08 09:27 | A.OFFVIS_ITS ---
Vital Signs 11/08/24 09:36 Height 4 ft 11 in Weight 163 lb BMI 32.9 BP 142/72 H Blood Pressure Location Lt brachial Position Sitting Pulse 74 Pulse Oximetry (%) 96 Oxygen Delivery Method Room Air Intake Visit Reasons: 4 month follow up Intake Note: Patient follow up for abdominal bloating and lab result. Patient cc: Skip Tracer Required: Yes Allergies clarithromycin [CLARITHROMYCIN] Allergy (Intermediate, Verified 11/08/24 09:26) Rash hydrochlorothiazide [HYDROCHLOROTHIAZIDE] Allergy (Intermediate, Verified 11/08/24 09:26) Rash Sulfa (Sulfonamide Antibiotics) Allergy (Intermediate, Verified 11/08/24 09:26) Rash tramadol [TRAMADOL] Allergy (Intermediate, Verified 11/08/24 09:26) Rash, vomiting moexipril [From Univasc] Allergy (Mild, Verified 11/08/24 09:26) lip deviation valsartan [From Diovan] Allergy (Mild, Verified 11/08/24 09:26) Rash amlodipine Adverse Reaction (Severe, Verified 11/08/24 09:26) leg swelling acetaminophen [From Vicodin] Adverse Reaction (Intermediate, Verified 11/08/24 09:26) Vomiting hydrocodone [From Vicodin] Adverse Reaction (Intermediate, Verified 11/08/24 09:26) Vomiting oxycodone [From Percocet] Adverse Reaction (Mild, Verified 11/08/24 09:26) vomiting Medication List - Last Reconciled 11/08/24 by Nazia Vásquez MD acetaminophen ER 650 mg PO Q8H PRN 30 days atorvastatin 10 mg PO DAILY blood pressure monitor As directed cane As directed Donut pillow As directed estradiol 0.01%(0.1mg/gram) (Estrace) 1 g vaginal 3XW 90 days fenofibrate 54 mg PO DAILY fluticasone propionate 50 mcg/actuation (Flonase Allergy Relief) 1 spray intranasal DAILY 30 days [heating pad massage As directed] heating pads ([employer]ocate Heating Pad) As directed levothyroxine 50 mcg PO DAILY 90 days losartan 100 mg PO DAILY qxzvlsoaulyc-nvic-jmiid acid 18-400 mg-mcg (Centrum) 1 tab PO DAILY naproxen 500 mg PO BID PRN 30 days pantoprazole 40 mg PO DAILY 90 days [pillow- neck As directed] polyethylene glycol 3350 (Miralax) 17 grams PO DAILY PRN 30 days verapamil ER 240 mg PO DAILY 90 days HPI HPI 4 month follow up: Details: GI CLINIC VISIT FOR THIS 79-YEAR-OLD MOH[place]-SPEAKING FEMALE FOR FOLLOW-UP OF EPIGASTRIC PAIN, GERD AND CONSTIPATION PMX:?Arthritis, Hypertension, Hyperlipidemia, Heart problems, Diverticulosis, Gastritis, thyroid disease PSHX: ATILIO with BSO, cholecystectomy lap ?TODAY'S VISIT Patient follow up for abdominal bloating and US results. Patient cc: abdominal pain and bloating, do BM when she is really gassy and constipation when she is not gassy [facility] [place] I take a powder and it helps me go to the bathroom Takes the powder almost daily. Once it starts working, then she stops taking it. Doing so so Intermittent GERD symptoms - once a week. Takes Mylanta prn which relieves heartburn and also makes her have a BM Takes Miralax prn for constipation and denies ongoing symptoms Has a BM 2-3 times a week. ?PAST VISIT: Lab results were reviewed with the patient. Denies abdominal pain or heartburn. Continues to have constipation. Has a BM sometimes twice a day and sometimes every other day. She takes medications for constipation as needed. Abd US results were reviewed with the patient. ? Denies any abd pain at present. Had abdominal pain a week ago after eating a buffet - took TUMS and pain went aw ay. ?Abd pain is much better and sometimes she gets it and sometimes she does not. ? Can be once a week to once a month and can last all day or a few hrs. ? Notes a little bit of heartburn - 2-3 times a week - sometimes day or night. ? Avoids spicy foods. ? Constipation improved with medications - Senna with colace. ? EGD and Colonoscopy and bx results were reviewed with the patient. ? Continues to have pain in her throat. ? Called her PCP and was prescribed PCN and the sore throat is getting better. ? Taking Senna three times a week alternating with Miralax and continuing to have constipation - advised to take Senna daily and take Miralax every other day. ? Pain is intermittent 8/10 in intensity and feels like a pressure. ? Pain radiates to the back and lower extremities. ? Pain is constant and varies in intensity. ? Unable to identify any precipitating factors. ? Thinks its her thyroid medication which is causing the pain. ? Pain gets a little better after a BM or passing gas. ? Notes chills and denies fever, ? Complains of decreased appetite and weight loss of 7 lbs since 03/01. ? Has been eating less and notes heartburn, early satiety, nausea and occasional vomiting, gas and bloating. ? Vomiting can be bilious. ? Denies dysphagia. ? Patient denies change in bowel habits, black stools or rectal bleeding. ? Chronic constipation and has a BM every other day if she takes medication for constipation ? Denies past problems with anesthesia or sleep apnea. ? Snores loudly. ? Denies major heart or lung problems ? Denies use of NSAIDS or blood thinners. STOPPED TAKING PLAVIX A YEAR AGO ? FAMILY HISTORY: Denies known FH of colon polyps, colon cancer or GI malignancy [employer] LABS:?07/08/19 REVIEWED NORMAL CBC WITH PLATELET COUNT OF 137, INR OF 1, ? NORMAL LFTS MILD INCREASE IN BILIRUBIN OF 1.4 ? VITAMIN B12 WAS 168 AND 2012. ?IMAGING STUDIES: 09/15/20 ABDOMINAL ULTRASOUND SHOWED:? LIVER: The liver is normal in size. The liver contour is normal. There is diffuse mildly increased liver parenchymal echogenicity, consistent with hepatic steatosis.? No focal hepatic lesion. There is no intrahepatic biliary duct dilatation seen. GALLBLADDER: Surgically absent. COMMON BILE DUCT: Prominent in caliber measuring 1.0 cm in diameter. This can be seen in the postcholecystectomy setting. RIGHT KIDNEY: Parapelvic cysts versus renal pelvic fullness. No hydronephrosis or renal calculi. The kidney measures 9.6 cm in maximum dimension. LEFT KIDNEY: Parapelvic cysts are present. No hydronephrosis or renal calculi. The kidney measures 9.7 cm in maximum dimension. SPLEEN: Normal. The spleen measures 9.4 cm in maximum dimension. ?06/22/[address] SCAN SHOWED: ? IMPRESSION: ? Diverticulosis. No evidence of diverticulitis. Bilateral renal peripelvi c cysts ?05/01 UGI SHOWED: ? There is a small hiatal hernia with moderate gastroesophageal reflux into the upper esophagus. ? Otherwise, the course, caliber and peristalsis of stomach, duodenal ? bulb and the sweep is normal. The mucosal pattern of stomach, duodenal ? bulb and CBD is normal except for a small round filling defect in the ? third segment duodenum on several last images.. Question prominent ? Eboni's gland, mass or polyp. Incidental note is made of previous cholecystectomy. ?ENDOSCOPIC STUDIES: 09/07/19 EGD AND COLONOSCOPY SHOWED: ? ESOPHAGUS: Small hiatus hernia and focal mild esophagitis STOMACH: Gastritis and gastric polyps ? Colonoscopy Findings: ? No polyps were detected ? Moderate to severe diverticulosis seen in the left colon ? Small hemorrhoids on retroflexed exam. ? Plan: ? Await pathology results ? Continue present medications ? Repeat Colonoscopy in 10 years if pt remains in stable health. ? Above findings were reviewed with the patient and GERD and diverticulosis handouts ? were provided. ? A. Small bowel, biopsy: Small intestinal mucosa within normal limits. ? B. Stomach, biopsy: Antral-type mucosa with moderate chronic inactive inflammation; no Helicobacter organisms seen. ? C. Stomach polyp: Fundic gland polyp with background mild chronic inactive inflammation; no Helicobacter organisms seen PFSH Medical History Cataracts, bilateral Chronic GERD Postmenopausal Numbness and tingling Anemia Productive cough Polyarthralgia Mixed hyperlipidemia Vertigo Essential hypertension Hypothyroidism Right hip pain Left hip pain Hypertension Chronic pain Surgical History Hx of eye surgery Status post laser ablation of incompetent vein History of esophagogastroduodenoscopy (EGD) Hx of colonoscopy History of total abdominal hysterectomy and bilateral salpingo-oophorectomy History of cholecystectomy Family History Father Alzheimer disease Mother Stroke Other No family history of cancer Social History Household Members: None Housing: Apartment Are you a primary resident care technician to a significant other at home: No Do you presently have visiting nurse or other home services: No Alcohol intake: never Patient Tobacco Use Status: Never used Tobacco e-Cigarette/Vaping Use: Never Used Second Hand Smoke Exposure: No service: No Current occupational status: retired Cognitive needs: No Hearing needs: No Vision needs: Yes Review of Systems Const All systems reviewed & are unremarkable except as noted in HPI and below Physical Exam Vital Signs: Last Vital Signs Pulse 74 11/08/24 09:36 BP 142/72 H 11/08/24 09:36 Pulse Ox 96 11/08/24 09:36 Oxygen Delivery Method Room Air 11/08/24 09:36 BMI result Body Mass Index 32.9 Const General: healthy appearing and no acute distress Nutritional Appearance: obese Orientation/consciousness: patient oriented x3 Limitations: language barrier HEENT Head: Yes normal to inspection Ears: hearing grossly normal bilaterally Eyes Sclerae: sclerae normal Pupils: Equal, round and reactive pupils present Neck Neck: Yes normal visual inspection Chest Chest palpation & inspection: normal inspection of the chest Resp Effort & Inspection: normal respiratory effort Auscultation: clear to auscultation bilaterally Cardio Palpation: normal PMI Rate: regular rate Rhythm: regular rhythm Heart sounds: S1 normal heart sound present, S2 normal heart sound present and no murmurs GI Palpation (GI): Soft to palpation, nontender and No hepatosplenomegaly present Auscultation: normal bowel sounds Rectal Exam - Female: deferred Skin General skin exam: no rashes or lesions noted Neuro General: patient oriented x3, gait normal and moves all extremities Cranial nerves: Yes Equal, round and reactive pupils present Psych Appearance: grossly normal Mental Status: mental status grossly normal Assessment & Plan Assessment & Plan (1) Upper abdominal pain: Code(s): R10.10 - Upper abdominal pain, unspecified Category: Medical (2) Chronic constipation: Comment: Continue Miralax prn Code(s): K59.09 - Other constipation Category: Medical (3) Abdominal bloating: Code(s): R14.0 - Abdominal distension (gaseous) Category: Medical (4) Colon cancer screening: Comment: 08/2019 No polyps were detected on colonoscopy. Repeat Colonoscopy can be considered in 10 years if patient remains in stable health. Code(s): Z12.11 - Encounter for screening for malignant neoplasm of colon Category: Medical (5) NAFL (nonalcoholic fatty liver): Code(s): K76.0 - Fatty (change of) liver, not elsewhere classified Category: Medical (6) Chronic GERD: Code(s): K21.9 - Gastro-esophageal reflux disease without esophagitis Category: Medical Plan 79 year old Cameroonian-speaking female with Arthritis, Hypertension, Hyperlipidemia, Heart problems, Diverticulosis, Gastritis seen for evaluation of abdominal pain with bloating and chronic constipation. Upper GI showed mild reflux and a small round filling defect in the third segment duodenum on several last images raising concern for a polyp, mass or prominent Eboni's gland. Patient was advised to start famotidine for GERD and abdominal pain and use se nna for constipation. 08/30 EGD showed a small hiatal hernia with focal esophagitis, gastritis and multiple hyperplastic gastric polyps. No nodule or polyp was visualized in the duodenum. 09/2020 Abd US showed?mild hepatic steatosis and parapelvic renal cysts?(she is > 20 yrs status post lap cathleen). 07/14/23 Intermittent GERD symptoms. Takes Miralax prn for constipation which is helpful and she was advised to take it daily to every other day. Has a BM 2-3 times a week. 01/26/24 US with Elastography (fatty liver on past US and low platelets - (137 to 173) showed: 1. Hepatic steatosis. 2. Elastography: Liver elastography measurements are consistent with a minimal risk for clinically significant liver fibrosis (METAVIR Stage F0-F1). 05/31/24 Intermittent GERD symptoms - once a week. Takes Mylanta prn which relieves heartburn and also makes her have a BM Takes Miralax prn for constipation and denies ongoing symptoms Has a BM 2-3 times a week. Pt advised to have labs checked for evaluation of chronic liver disease 11/08/24 Pt advised to continue Miralax daily for constipation. Pt has fatty liver with normal LFTs - advised to continue to work on loosing weight - 5 lbs this year. FU in 6 months Medications: Changed From polyethylene glycol 3350 (Miralax) 17 grams PO DAILY 30 days PRN 510 grams 3RF constipation K59.09 - Other constipation To polyethylene glycol 3350 (Miralax) 17 grams PO DAILY 90 days PRN 510 grams 2RF constipation K59.09 - Other constipation Coding Level of Care Code Est Pt Level 4 (67645) Diagnoses Upper abdominal pain R10.10 Chronic constipation K59.09 Abdominal bloating R14.0 Colon cancer screening Z12.11 NAFL (nonalcoholic fatty liver) K76.0 Chronic GERD K21.9 Time Spent (min) 18
[2024-11-08 09:36] VITALS: BP 142/72; PULSE 74; O2SAT 96; BMI 32.9
--- OUTSIDE RECORDS SUMMARY | 2024-11-08 09:39 | XMS_ITS | Clinical Summary ---
Author Organization [employer] Address [address] [place] [address] Care Team Providers Care Clay Carman Name Role Phone Unavailable Primary Care Provider [...] - 1-dose 75+ series) 09/06/2019 COVID-19 Vaccine ( - season) 2024 03/17/2021, 08/14/2020 Influenza Vaccine [...] patient's age to complete this topic Meningococcal B Vaccine Aged Out No l onger eligible based on patient's age to complete [...]
== END 2024-11-08 10:12 | disposition home or self-care (01) ==
LOC: HO.HGI 09:15
PROVIDERS: PCP Internal Medicine; Visit Provider Internal Medicine Gastroenterology
DX: R10.10 Upper abdominal pain, unspecified (principal); K59.09 Other constipation; R14.0 Abdominal distension (gaseous); K76.0 Fatty (change of) liver, not elsewhere classified; K21.9 Gastro-esophageal reflux disease without esophagitis
CPT/HCPCS: 99214

== ENCOUNTER → 2024-11-08 09:14 | Outpatient (BNVA) | payer OTHER, SELFPAY | PROVIDERS: PCP Internal Medicine; Visit Provider Internal Medicine Gastroenterology | DX: K21.9 Gastro-esophageal reflux disease without esophagitis (principal); K59.09 Other constipation; K76.0 Fatty (change of) liver, not elsewhere classified; R10.13 Epigastric pain; R14.0 Abdominal distension (gaseous) | CPT/HCPCS: 99212 ==

== ENCOUNTER 2024-12-28 10:53 | Emergency (ER) | payer OTHER, SELFPAY ==
--- NOTE | ~2024-12-28 | CT_ITS ---
EXAMINATION: CT HEAD WITHOUT IV CONTRAST HISTORY: L headache severe. TECHNIQUE: Unenhanced helical CT of the head was performed per standard departmental protocol. Coronal and sagittal reformats of the head were also evaluated. One or more of the following techniques was used for dose reduction: Automated exposure control, adjustment of the mA and/or kV according to patient size, use of iterative reconstruction technique. DLP: 706 mGy-cm COMPARISON: Comparison is made with the prior examination dated 07/08/2019. FINDINGS: BRAIN: The brain parenchyma is unremarkable. There is normal voss/white differentiation. The ventricular system is normal in size and configuration. There is no mass effect or midline shift. No intra- or extra-axial fluid collections are identified. SINUSES: The visualized paranasal sinuses are clear. The mastoid air cells and middle ear cavities are well pneumatized. ORBITS: The visualized orbits are unremarkable. BONES/SOFT TISSUES: The extracranial soft tissues are unremarkable. The calvarium is intact. No suspicious lytic or sclerotic lesions. CT/CT head/brain wo IV con IMPRESSION: No acute intracranial abnormality. Electronically signed by: Kendrick Paula MD 12/28/2024 12:14 PM EDT
--- NOTE | 2024-12-28 10:56 | ECG_ITS ---
Test Reason : HTN Blood Pressure : */* mmHG Vent. 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
[2024-12-28 10:57] VITALS: BP 152/82; PULSE 70; O2SAT 96
[2024-12-28 11:05] VITALS: BP 132/86; PULSE 75; RESP 16; O2SAT 97; BMI 31.6
--- NOTE | 2024-12-28 11:32 | ED_ITS ---
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 Patient primarily to me complains of left-sided throbbing temporal region headache she denies focal motor or sensory symptoms speech change. This was gradual onset from about 830 this morning no head trauma. Medical history chronic GERD, polyarthralgia, hyperlipidemia, vertigo, hypertension, chronic pain syndrome. No GI bleeding reported no chest pain difficulty breathing cough fever or other symptoms Related Data Home Medications ?Medication ?Instructions ?Recorded ?Confirmed multivitamin-ferrous 1 tab PO DAILY 05/17/2210/12 fumarate-folic acid 18 mg-400 mcg tablet (Centrum) Previous Rx's ?Medication ?Instructions ?Recorded naproxen 500 mg tablet 500 mg PO BID PRN pain 30 da ys #60 10/18/23 tabs Donut pillow #1 ea 02/22/24 cane #1 ea 02/22/24 heating pad massage #1 ea 02/22/24 heating pads (Advocate Heating Pad) #1 ea 02/22/24 blood pressure monitor #1 ea 02/23/24 acetaminophen 650 mg 650 mg PO Q8H PRN pain 30 da ys #90 03/28/24 tablet,extended release tabs atorvastatin 10 mg tablet 10 mg PO DAILY #90 tabs 03/13 12/04 fenofibrate 54 mg tablet 54 mg PO DAILY #90 tabs 03/13 12/04 levothyroxine 50 mcg capsule 50 mcg PO DAILY 90 days # 90 caps 03/28/24 losartan 100 mg tablet 100 mg PO DAILY #90 tabs pillow- neck #1 ea 03/28/24 verapamil 240 mg tablet,extended 240 mg PO DAILY 90 da ys #90 tabs 03/28/24 release pantoprazole 40 mg tablet,delayed 40 mg PO DAILY 90 da ys #90 tabs 04/24/24 release estradiol 0.01% (0.1 mg/gram) 1 g vaginal 3XW 90 days #42.5 grams 07/09/24 vaginal cream (Estrace) fluticasone propionate 50 1 spray intranasal DAILY 30 days 10/19/24 mcg/actuation nasal #16 grams spray,suspension (Flonase Allergy Relief) polyethylene glycol 3350 17 17 g PO DAILY PRN constipa tion 90 11/08/24 gram/dose oral powder (Miralax) days #510 grams Allergies Allergy/AdvReac Type Severity Reaction Status Date / Time clarithromycin Allergy Intermediate Rash Verified 12/28/24 11:10 (CLARITHROMYCIN) hydrochlorothiazide Allergy Intermediate Rash Verified 12/28/24 11:10 (HYDROCHLOROTHIAZIDE) Sulfa (Sulfonamide Allergy Intermediate Rash Verified 12/28/24 11:10 Antibiotics) tramadol (TRAMADOL) Allergy Intermediate Rash, Verified 12/28/24 11:10 vomiting moexipril (From Univasc) Allergy Mild lip Verified 12/28/24 11:10 deviation valsartan (From Diovan) Allergy Mild Rash Verified 12/28/24 11:10 amlodipine AdvReac Severe leg Verified 12/28/24 11:10 swelling acetaminophen (From Vicodin) AdvReac Intermediate Vomiting Verified 12/28/24 11:10 hydrocodone (From Vicodin) AdvReac Intermediate Vomiting Verified 12/28/24 11:10 oxycodone (From Percocet) AdvReac Mild vomiting Verified 12/28/24 11:10 PMFSH Past Medical History Medical History Cataracts, bilateral Chronic GERD Postmenopausal Numbness and tingling Anemia Productive cough Polyarthralgia Mixed hyperlipidemia Vertigo Essential hypertension Hypothyroidism Right hip pain Left hip pain Hypertension Chronic pain Surgical History Hx of eye surgery Status post laser ablation of incompetent vein History of esophagogastroduodenoscopy (EGD) Hx of colonoscopy History of total abdominal hysterectomy and bilateral salpingo-oophorectomy History of cholecystectomy Family History Family History Father Alzheimer disease Mother Stroke Other No family history of cancer Social History Social History Household Members: None Housing: Apartment Are you a primary hemodialysis patient care specialist to a significant other at home: No Do you presently have visiting nurse or other home services: No Alcohol intake: never Patient Tobacco Use Status: Never used Tobacco e-Cigarette/Vaping Use: Never Used Second Hand Smoke Exposure: No service: No Current occupational status: retired Cognitive needs: No Hearing needs: No Vision needs: Yes Physical Exam ED Exam Exam: GENERAL: Well appearing. Appears uncomfortable but not distressed able to speak to me he has clear speech. HEAD/NECK: Normal to inspection. Neck supple. No cervical lymphadenopathy. EYES: Normal to inspection. Sclera non-icteric. ENMT: External nose normal. RESPIRATORY: Respiratory effort normal. Lungs clear to auscultation bilaterally. CARDIOVASCULAR: Regular rate. Normal rhythm. No murmur. No rubs. GI: Soft, non-tender, non-distended. No rebound or guarding. No masses palpable. No hepatosplenomegaly. SKIN: No jaundice. NEUROLOGICAL: Alert. PSYCHIATRIC: Alert. Appearance appropriate for situation. Attitude cooperative. OTHER: Comprehensive Neuro exam: Face symmetric, tongue midline, strong symmetric eye closure, pupils symmetric and reactive to light, intact sensation to the face throughout, intact strong face deviation and shoulder shrug. Sensation intact to light touch throughout * 5 out of 5 strength in bilateral upper extremities, 5 and 5 strength in lower extremities no nystagmus no truncal ataxia Vital Signs: Vital Signs - 24 hr 12/28/24 11:05 12/28/24 12:44 Temperature 97.6 F Pulse Rate 75 70 Respiratory Rate 16 15 Blood Pressure 132/86 138/60 Pulse Oximetry 97 95 Oxygen Delivery Method Room Air Room Air BMI result Body Mass Index 31.6 Medications Administered Discontinued Medications Generic Name Dose Route Start Last Admin Trade Name Freq PRN Reason Stop Dose Admin Dexamethasone Sodium Phosphate 8 mg 12/28/24 11:29 12/28/24 12:17 Dexamethasone Sod Phosphate 4 Mg/Ml Vial IVPUSH 12/28/24 11:30 8 mg ONCE ONE Administration Sodium Chloride 1,000 mls @ 999 mls/hr 12/28/24 11:45 12/28/24 11:39 Ns IV 12/28/24 12:45 999 mls/hr .Q1H1M LALY Administration Ketorolac Tromethamine 10 mg 12/28/24 11:29 12/28/24 12:15 Ketorolac Tromethamine 15 Mg/Ml Vial IVPUSH 12/28/24 11:30 10 mg ONCE ONE Administration Metoclopramide HCl 10 mg 12/28/24 11:29 12/28/24 12:15 Metoclopramide Hcl 10 Mg/2 Ml Vial IVPUSH 12/28/24 11:30 10 mg ONCE ONE Administration Pantoprazole Sodium 40 mg 12/28/24 11:29 12/28/24 12:15 Pantoprazole Sodium 40 Mg/10 Ml Vial IVPUSH 12/28/24 11:30 40 mg ONCE ONE Administration Medical Decision Making Medical Decision Making MDM Narrative: Medical Decision Makin-year-old female chronic multiple comorbid conditions with gradual onset left- sided throbbing headache with normal reassuring neurologic exam. No meningismus. Favored tension verse stress versus migrainous. No head trauma. ICH excluded on CT. Also had epigastric pain given the nature character and tenderness doubtful this is anginal equivalent but this was considered. ECG reassuring without ischemic changes. Patient improved significantly after migraine cocktail IV fluid. Preliminary Favored Differential Diagnosis: Gastritis/GERD/migraine/tension/dehydration/stress headache/ICH among additional considered etiologies Sinus rhythm rate 72 QTC 440 no acute ischemic changes no dynamic changes from prior comparisons specifically 03/22/2023. Radiology or Lab testing Results Reviewed: Reviewed CT report with no acute pathology Consults: Not Applicable Independent Historians/External Chart Reviews: Daughter at the bedside provided additional history. Social Determinants of Health Impacting MDM/Planning: Not Applicable Lab Data 12/28/24 12:07 12/28/24 12:07 Labs: Lab Results 12/28/24 Range/Units 12:07 WBC 5.6 (4.8-10.8) X10*3/uL RBC 4.15 L (4.20-5.50) X10*6/uL Hgb 12.5 (12.0-16.0) g/dl Hct 37.5 (37.0-47.0) % MCV 90.4 (80.0-98.0) fL MCH 30.1 (27.0-33.0) pg MCHC 33.3 (31.0-35.0) g/dl RDW 13.0 (11.0-16.0) % Plt Count 146 L (160-400) X10*3/uL MPV 12.4 H (9.4-12.3) fL Immature Gran % (Auto) 0.4 (0.0-0.4) % Neut % (Auto) 65.8 (45-73) % Lymph % (Auto) 25.1 (20-40) % [place] % (Auto) 6.2 (2-11) % Eos % (Auto) 2.0 (0-4) % Baso % (Auto) 0.5 (0-2) % Lymph # (Auto) 1.4 (1.2-4.9) X10*3/uL [place] # (Auto) 0.4 (0.1-1.2) X10*3/uL Eos # (Auto) 0.1 (0.0-0.4) X10*3/uL Baso # (Auto) 0.0 (0.0-0.2) X10*3/uL Abs Immat Gran (auto) 0.02 (0.00-0.03) X10*3/uL Absolute Neuts (auto) 3.7 (2.0-8.3) x10*3/uL Absolute Nucleated RBC 0.000 (0.0-0.012) X10*3/uL Nucleated RBC % (auto) 0.0 (0.0-0.2) /100WBC Sodium 143 (135-145) mmol/L Potassium 4.1 (3.3-5.1) mmol/L Chloride 111 H (96-108) mmol/L Carbon Dioxide 25 (22-29) mmol/L Anion Gap 11 L (12-20) BUN 16 (9-16) mg/dL Creatinine 0.91 (0.5-1.4) mg/dL Estim Creat Clear Calc 44.1 Estimated GFR 59 Random Glucose 103 (60-115) mg/dL Calcium 9.1 (8.4-10.2) mg/dL Urine Color Yellow Urine Appearance Clear Urine pH 7.5 (5.0-9.0) Ur Specific [place] <= 1.005 (1.005-1.025) Urine Protein Negative (Neg-Trace) mg/dL Urine Glucose (UA) Negative (Negative) mg/dL Urine Ketones Negative (Negative) mg/dL Urine Blood Negative (Negative) Urine Nitrite Negative (Negative) Ur Leukocyte Esterase Negative (Negative) Discharge Plan Discharge Clinical Impression: Headache, Acute epigastric pain Patient Disposition: Home, Self-Care Instructions: Abdominal Pain (ED) Additional Instructions: _ DISCHARGE DIAGNOSES: Epigastric abdominal pain unclear cause could be chronic or acute on chronic gastritis but no definitive diagnosis has been established today. Headache: We feel serious emergent causes has been excluded with brain scan and examination tests. HISTORY OF PRESENTATION: ?Headache and pain in the upper abdomen EMERGENCY DEPARTMENT COURSE,TESTS, TREATMENTS: While in the ED today today you received migraine cocktail a series of medications to counter your headache and IV fluid as well as antacid medications he felt much better after these. You had a reassuring examination blood work EKG CT scan of the brain DISCHARGE MEDICATIONS: ?[We have made no changes to your regular medication regimen] FOLLOW-UP: ?Call your primary or general physician soon as possible to discuss your symptoms, your ED visit and to discuss follow up plans Call your primary doctor for follow up you should be seen within 3-5 days for re-evaluation after ED visit INSTRUCTIONS ?& RETURN PRECAUTIONS: If any symptoms change first call your primary physician, if it is after-hours your primary doctors office should have a provider balloon maker you can speak with. If the symptoms are severe or very concerning to you then call 911 or return to the ED. [07] Earl Dorado MD Emergency Physician [facility] Prescriptions: No Action (DME) cane Device See Rx Instructions .Route Qty: 1 0RF Rx Instructions: As directed (DME) Donut monicaow Misc See Rx Instructions .Route Qty: 1 0RF Rx Instructions: As directed (DME) heating pad massage See Rx Instructions .Route .MEDSUPPLY Qty: 1 0RF Rx Instructions: As directed (DME) heating pads [Advocate Heating Pad] Pad See Rx Instructions .Route Qty: 1 0RF Rx Instructions: As directed (DME) blood pressure monitor Kit See Rx Instructions .Route Qty: 1 0RF Rx Instructions: As directed pantoprazole 40 mg tablet,delayed release (DR/EC) 40 mg PO DAILY 90 Days Qty: 90 3RF fluticasone propionate [Flonase Allergy Relief] 50 mcg/actuation spray,suspension 1 spray intranasal DAILY 30 Days Qty: 16 0RF Rx Instructions: administer into each nostril Centrum 18-400 mg-mcg Tablet 1 tab PO DAILY naproxen 500 mg tablet 500 mg PO BID PRN (Reason: pain) 30 Days Qty: 60 2RF fenofibrate 54 mg tablet 54 mg PO DAILY Qty: 90 3RF atorvastatin 10 mg tablet 10 mg PO DAILY Qty: 90 3RF acetaminophen 650 mg tablet extended release 650 mg PO Q8H PRN (Reason: pain) 30 Days Qty: 90 3RF levothyroxine 50 mcg capsule 50 mcg PO DAILY 90 Days Qty: 90 3RF losartan 100 mg tablet 100 mg PO DAILY Qty: 90 3RF verapamil 240 mg tablet extended release 240 mg PO DAILY 90 Days Qty: 90 3RF (DME) pillow- neck See Rx Instructions .Route .MEDSUPPLY Qty: 1 0RF Rx Instructions: As directed estradiol [Estrace] 0.01 % (0.1 mg/gram) cream 1 g vaginal 3XW 90 Days Qty: 42.5 3RF Rx Instructions: Apply pea-sized amount to urethra daily x1 month; after 1 month then apply pea-sized amount 3 times per week to urethra. polyethylene glycol 3350 [Miralax] 17 gram/dose powder 17 g PO DAILY PRN (Reason: constipation) 90 Days Qty: 510 2RF Interventions: ED Discharge Assessment Last Done: 12/28/24 13:21 Discharge Date/Time: 12/28/24 13:35 Print Language: Nepali
--- OUTSIDE RECORDS SUMMARY | 2024-12-28 11:51 | XMS_ITS | Clinical Summary ---
Author Organization [employer] Address [address] [facility] [address] [place] [address] Care Team Providers Care Process Coordinator Name Role Phone Unavailable Primary Care Provider [...] season) 2024 03/17/2021, 08/14/2020 Influenza Vaccine (#1) 2025 , 04/10/2020, 03/19/2019, Additional history exists DTaP/Tdap/Td [...]
--- OUTSIDE RECORDS SUMMARY | 2024-12-28 11:51 | XMS_ITS | Patient Health Record ---
Author Organization [facility] Address [address] [place] [address] Care Team Providers Care Airplane Pilot Supervisor Name Role Phone Tobias Acosta MD, Bassem Primary Care Provide Kendrick Lynch [phone] Allergies Allergen (clinical drug ingredient) Drug/Non Drug Allergy documented on EMR Reaction Allergy Type Onset Date Status valsartan Diovan Unknown Drug Allergy Active sulfamethoxazole / trimethoprim Bactrim Unknown Drug Allergy Active hydrochlorothiazide hctz (uncoded) Unknown Allergy Active unibox (uncoded) Unknown Allergy Act claude Sulfa Unknown Drug Allergy Active Vicodin Unknown Drug Allergy Active acetaminophen / oxycodone Percocet Unknown Drug Allergy Active peginterferon linnette-2a Pegasys Unknown Drug Allergy Active Reason For Referral No Information Medications Medication SIG (Take, Route, Frequency, Duration) Notes Start Date End Date Status Vitamin D3 Active Mylicon Active Verapamil HCl Active cloNIDine HCl 06/13/2024 06/13/2024 Acti ve Simvastatin 06/13/2024 06/13/2024 Active Omeprazole 20 MG 1 capsule Orally Onc e a day for 30 day(s) Active MiraLax 1 mix 1 capful in 8 ou nces of water Orally 2-3 times a day for the constipation for 30 days 02/09/2013 06/13/2024 Active Metoprolol & Diet Manage Prod 06/13/2024 06/13/2024 Active Tylenol 06/13/2024 06/13/2024 Active Fish Oil Active Losartan Potassium 06/13/2024 06/13/2024 Active Problems Problem Type SNOMED Code ICD Code Onset Dates Problem Status W/U Status Risk Notes Problem Constipation (36448790) Constipation (564.00) Active confirmed Problem Gastroesophageal reflux disease (211307350) GERD (gastroesophage al reflux disease) (530.81) Active confirmed Problem Screening for malignant neoplasm of colon (225258453) Screen for colon cancer (V76.51) Active confirmed Plan Of Treatment No Information Insurance Providers Payer Name Payer Address Payer Phone Subscriber Number Group Number Insured Name Patient Relationship to Insured Coverage Start Date Coverage End Date [facility] [address] [place] [phone] [id number] SHABBIR ALLAN Self - patient is the insured Medical (General) History Medical History History ICD Code GERD-Had an EGD in 03/18 with the katarzyna zaragoza of [facility] -no esophagitis Constipation hypertension hyperlipidemia Neg screening colonoscopy in 03/18 except diverticulosis and internal hemorrhoids Denies HI,DM,CVA,Lung disease,renal dise ase Surgical History Surgery Date(Month/Year) ATILIO cholecystectomy
[2024-12-28 12:12] LABS: MANUAL DIFF FLAG NO
[2024-12-28 12:13] LABS: Hematocrit 37.5 % (37.0-47.0); Hemoglobin 12.5 g/dl (12.0-16.0); Imm Gran Abs Auto 0.02 X10*3/uL (0.00-0.03); Imm Gran Pct Auto 0.4 % (0.0-0.4); Lymphocytes Absolute Auto 1.4 X10*3/uL (1.2-4.9); Mean Corpuscular HGB Conc 33.3 g/dl (31.0-35.0); Mean Corpuscular Hemoglobin 30.1 pg (27.0-33.0); Mean Corpuscular Volume 90.4 fL (80.0-98.0); NRBC Abs Auto 0.000 X10*3/uL (0.0-0.012); NRBC Pct Auto 0.0 /100WBC (0.0-0.2); Platelet Count 146 X10*3/uL (160-400); Red Blood Count 4.15 X10*6/uL (4.20-5.50); White Blood Count 5.6 X10*3/uL (4.8-10.8)
[2024-12-28 12:15] LABS: Appearance Urine Clear; Glucose Urine UA Negative (Negative); PH 7.5 (5.0-9.0); Specific Gravity - Urine <= 1.005 (1.005-1.025)
[2024-12-28 12:28] LABS: Anion Gap 11 (12-20); Blood Urea Nitrogen 16 mg/dL (9-16); Calcium 9.1 mg/dL (8.4-10.2); Carbon Dioxide 25 mmol/L (22-29); Chloride 111 mmol/L (96-108); Creatinine Clr Calc Pharmacy 44.1; Estimated Glomerular Filt Rate 59; Potassium 4.1 mmol/L (3.3-5.1); Sodium 143 mmol/L (135-145)
[2024-12-28 12:44] VITALS: BP 138/60; PULSE 70; RESP 15; TEMP 36.4; O2SAT 95
[2024-12-28 13:21] VITALS: BP 138/60; PULSE 70; RESP 15; TEMP 36.4; O2SAT 95
== END 2024-12-28 13:35 | disposition home or self-care (01) ==
PROVIDERS: Emergency Provider Emergency Medicine; PCP Internal Medicine
DX: R51.9 Headache, unspecified (principal); K21.9 Gastro-esophageal reflux disease without esophagitis; R42 Dizziness and giddiness; I10 Essential (primary) hypertension; E78.5 Hyperlipidemia, unspecified
CPT/HCPCS: 36415; 70450; 80048; 81003; 85025; 93005; 96374; 96375; 99284; 99285; J1100; J1885; J2470; J2765

== ENCOUNTER → 2024-12-28 10:56 | Outpatient (BNV) | payer OTHER, SELFPAY | PROVIDERS: Emergency Provider Emergency Medicine; PCP Internal Medicine; Visit Provider Internal Medicine | DX: I25.2 Old myocardial infarction (principal) | CPT/HCPCS: 93010 ==

== ENCOUNTER → 2024-12-28 11:32 | Outpatient (BNV) | payer OTHER, SELFPAY | PROVIDERS: Emergency Provider Emergency Medicine; PCP Internal Medicine; Visit Provider Radiology Diagnostic Radiology | DX: R51.9 Headache, unspecified (principal) | CPT/HCPCS: 70450 ==

== ENCOUNTER 2025-04-02 09:38 | Outpatient (REF) | payer OTHER, SELFPAY ==
--- OUTSIDE RECORDS SUMMARY | 2025-04-02 10:53 | XMS_ITS | Patient Health Record ---
Author Organization [facility] Address [address] [place] [address] Care Team Providers Care Dehydration Plant Operator Name Role Phone Tobias Acosta MD, Bassem Primary Care Provide Kendrick Lynch [phone] Allergies Allergen (clinical drug ingredient) Drug/Non Drug Allergy documented on EMR Reaction Allergy Type Onset Date Status Sulfa Unknown Drug Allergy Active Vicodin Unknown Drug Allergy Active acetaminophen / oxycodone Percocet Unknown Drug Allergy Active peginterferon linnette-2a Pegasys Unknown Drug Allergy Active valsartan Diovan Unknown Drug Allergy Active sulfamethoxazole / trimethoprim Bactrim Unknown Drug Allergy Active hydrochlorothiazide hctz (uncoded) Unknown Allergy Active unibox (uncoded) Unknown Allergy Act claude Reason For Referral No Information Medications Medication SIG (Take, Route, Frequency, Duration) Notes Start Date End Date Status Vitamin D3 Active Mylicon Active Verapamil HCl Active cloNIDine HCl 06/13/2024 06/13/2024 Acti ve Simvastatin 06/13/2024 06/13/2024 Active Omeprazole 20 MG 1 capsule Orally Onc e a day; Duration: 30 day(s) Active MiraLax 1 mix 1 capful in 8 ou nces of water Orally 2-3 times a day for the constipation; Duration: 30 days 02/09/2013 06/13/2024 Active Metoprolol & Diet Manage Prod 06/13/2024 06/13/2024 Active Tylenol 06/13/2024 06/13/2024 Active Fish Oil Active Losartan Potassium 06/13/2024 06/13/2024 Active Problems Problem Type SNOMED Code ICD Code Onset Dates Problem Status W/U Status Risk Notes Problem Constipation (71509654) Constipation (564.00) Active confirmed Problem Gastroesophageal reflux disease (003866169) GERD (gastroesophage al reflux disease) (530.81) Active confirmed Problem Screening for malignant neoplasm of colon (521160893) Screen for colon cancer (V76.51) Active confirmed Plan Of Treatment No Information Insurance Providers Payer Name Payer Address Payer Phone Subscriber Number Group Number Insured Name Patient Relationship to Insured Coverage Start Date Coverage End Date [facility] [address] [place] [phone] [id number] SHABBIR ALLAN Self - patient is the insured Medical (General) History Medical History History ICD Code GERD-Had an EGD in 03/18 with the katarzyna zaragoza of [facility] -no esophagitis Constipation hypertension hyperlipidemia Neg screening colonoscopy in 03/18 except diverticulosis and internal hemorrhoids Denies OH,DM,CVA,Lung disease,renal dise ase Surgical History Surgery Date(Month/Year) ATILIO cholecystectomy
--- OUTSIDE RECORDS SUMMARY | 2025-04-02 10:53 | XMS_ITS | Clinical Summary ---
Author Organization [employer] Address [address] [facility] [facility] [address] [place] [address] Care Team Providers Care Distillery Manager Name Role Phone Unavailable Primary Care Provider [...] series) 09/06/2019 COVID-19 Vaccine (3 - season) 2025 03/17/2021, 08/14/2020 Influenza Vaccine (#1) 2025 , [...]
[2025-04-02 11:03] LABS: Hemoglobin 12.6 g/dl (12.0-16.0); Imm Gran Abs Auto 0.02 X10*3/uL (0.00-0.03); Imm Gran Pct Auto 0.3 % (0.0-0.4); MANUAL DIFF FLAG SCAN; NRBC Abs Auto 0.000 X10*3/uL (0.0-0.012); NRBC Pct Auto 0.0 /100WBC (0.0-0.2); SCAN SMEAR FLAG 1
[2025-04-02 11:05] LABS: Hematocrit 39.4 % (37.0-47.0); Lymphocytes Absolute Auto 2.9 X10*3/uL (1.2-4.9); Mean Corpuscular HGB Conc 32.0 g/dl (31.0-35.0); Mean Corpuscular Hemoglobin 29.3 pg (27.0-33.0); Mean Corpuscular Volume 91.6 fL (80.0-98.0); Platelet Count 166 X10*3/uL (160-400); Red Blood Count 4.30 X10*6/uL (4.20-5.50); White Blood Count 7.0 X10*3/uL (4.8-10.8)
[2025-04-02 11:12] LABS: PLT ABN DIST 1
[2025-04-02 12:09] LABS: Alanine Aminotransferase 14 U/L (0-31); Albumin Level 4.4 g/dL (3.5-5.0); Alkaline Phosphatase 87 U/L (39-117); Anion Gap 12 (12-20); Aspartate Amino Transferase 22 U/L (5-31); Blood Urea Nitrogen 16 mg/dL (9-16); Calcium 9.2 mg/dL (8.4-10.2); Carbon Dioxide 24 mmol/L (22-29); Chloride 109 mmol/L (96-108); Cholesterol 152 mg/dL (<200); Estimated Glomerular Filt Rate > 60; HDL Cholesterol 52 mg/dL (>40); Iron 71 mcg/dL (30-160); Magnesium 2.0 mg/dL (1.6-2.6); Percent Iron Saturation 24 % (15-50); Potassium 3.9 mmol/L (3.3-5.1); Sodium 141 mmol/L (135-145); Total Iron Binding Capacity 297 mcg/dL (228-428); Total Protein 7.0 g/dL (6.5-8.0); Triglycerides 127 mg/dL (<150); Unsaturated Iron Binding 226 ug/dL
[2025-04-02 13:48] LABS: Thyroid Stimulating Hormone 2.18 uIU/mL (0.32-4.0)
== END 2025-04-02 09:39 | disposition home or self-care (01) ==
LOC: HO.LAB 09:38
PROVIDERS: PCP Internal Medicine; Visit Provider Internal Medicine
DX: I10 Essential (primary) hypertension (principal); E03.9 Hypothyroidism, unspecified; D64.9 Anemia, unspecified; E78.5 Hyperlipidemia, unspecified; M50.30 Other cervical disc degeneration, unspecified cervical region; E55.9 Vitamin D deficiency, unspecified; Z79.899 Other long term (current) drug therapy
CPT/HCPCS: 36415; 80053; 80061; 82306; 83540; 83735; 84443; 85025

== ENCOUNTER 2025-04-08 10:33 | Outpatient (AMB) | payer OTHER, SELFPAY ==
[2025-04-08 10:46] VITALS: BP 140/74; PULSE 69; O2SAT 95; BMI 33.3
--- NOTE | 2025-04-08 10:46 | MHC.PC.OV ---
Vital Signs 04/08/25 10:46 Height 4 ft 11 in Weight 165 lb BMI 33.3 BP 140/74 H Blood Pressure Location Lt brachial Position Sitting Pulse 69 Pulse Source Pulse Oximeter Pulse Oximetry (%) 95 Oxygen Delivery Method Room Air Intake Visit Reasons: Annual Exam Circular Sawyer Helper Required: No Accompanied by: Self / Same As Patient Allergies clarithromycin (CLARITHROMYCIN) Allergy (Intermediate, Verified 04/08/25 10:57) Rash hydrochlorothiazide (HYDROCHLOROTHIAZIDE) Allergy (Intermediate, Verified 04/08/25 10:57) Rash Sulfa (Sulfonamide Antibiotics) Allergy (Intermediate, Verified 04/08/25 10:57) Rash tramadol (TRAMADOL) Allergy (Intermediate, Verified 04/08/25 10:57) Rash, vomiting moexipril (From Univasc) Allergy (Mild, Verified 04/08/25 10:57) lip deviation valsartan (From Diovan) Allergy (Mild, Verified 04/08/25 10:57) Rash amlodipine Adverse Reaction (Severe, Verified 04/08/25 10:57) leg swelling acetaminophen (From Vicodin) Adverse Reaction (Intermediate, Verified 04/08/25 10:57) Vomiting hydrocodone (From Vicodin) Adverse Reaction (Intermediate, Verified 04/08/25 10:57) Vomiting oxycodone (From Percocet) Adverse Reaction (Mild, Verified 04/08/25 10:57) vomiting Medication List - Last Reconciled 04/08/25 by Hayde Marvin MD acetaminophen ER 650 mg PO Q8H PRN 30 days atorvastatin 10 mg PO DAILY blood pressure monitor As directed cane As directed Donut pillow As directed estradiol 0.01%(0.1mg/gram) (Estrace) 1 g vaginal 3XW 90 days fenofibrate 54 mg PO DAILY fluticasone propionate 50 mcg/actuation (Flonase Allergy Relief) 1 spray intranasal DAILY 30 days [heating pad massage As directed] heating pads ([employer]ocate Heating Pad) As directed levothyroxine 50 mcg PO DAILY 90 days losartan 100 mg PO DAILY viyhrjwtdnmh-msxf-aghbg acid 18-400 mg-mcg (Centrum) 1 tab PO DAILY naproxen 500 mg PO BID PRN 30 days pantoprazole 40 mg PO DAILY 90 days [pillow- neck As directed] polyethylene glycol 3350 (Miralax) 17 grams PO DAILY PRN 90 days verapamil ER 240 mg PO DAILY 90 days Tobacco use date assessed: 04/08/25 Fall risk assessment: No Falls in past year Last assessed Fall Risk: 04/08/25 Dental Screening Dental Screen Date: 04/08/25 Did you have a dental visit in the last 12 months?: No Did you have a dental problem in the last 6 months where you did not have access to dental care?: No Was dental information given to patient?: No HPI HPI Comments History of Present Illness Details The patient is an 79-year-old female presenting for an annual physical examination. The patient's current medications include Tylenol as needed, atorvastatin 10 mg for cholesterol, levothyroxine 50 mg for hypothyroidism which is well-controlled, losartan 100 mg and verapamil for hypertension, Centrum, pantoprazole for acid reflux, and MiraLAX as needed for constipation. She also uses naproxen for muscular pain and requires a refill. The patient reports never using the prescribed estradiol vaginal cream and will be discontinuing fenofibrate 54 mg as her triglycerides are normal. She has known allergies to clarithromycin, hydrochlorothiazide, sulfa drugs, tramadol, moexipril, valsartan, amlodipine, and Vicodin. Her surgical history includes cataract surgery, vein surgery, hysterectomy, and cholecystectomy. She has also undergone prior endoscopy and colonoscopy. Family history is significant for a father with Alzheimer's disease and a mother who had a stroke. The patient denies a history of smoking and does not consume alcohol. [facility] Medical History Cataracts, bilateral Chronic GERD Postmenopausal Numbness and tingling Anemia Productive cough Polyarthralgia Mixed hyperlipidemia Vertigo Essential hypertension Hypothyroidism Right hip pain Left hip pain Hypertension Chronic pain Surgical History Hx of eye surgery Status post laser ablation of incompetent vein History of esophagogastroduodenoscopy (EGD) Hx of colonoscopy History of total abdominal hysterectomy and bilateral salpingo-oophorectomy History of cholecystectomy Family History Father Alzheimer disease Mother Stroke Other No family history of cancer Social History Household Members: None Housing: Apartment Are you a primary nurse healthcare manager to a significant other at home: No Do you presently have visiting nurse or other home services: No Alcohol intake: never Patient Tobacco Use Status: Never used Tobacco e-Cigarette/Vaping Use: Never Used Second Hand Smoke Exposure: No service: No Current occupational status: retired Cognitive needs: No Hearing needs: No Vision needs: Yes Questionnaire PHQ-9 Over the last 2 weeks, how often have you been bothered by any of the following problems? 1. Little interest or pleasure in doing things: not at all 2. Feeling down, depressed, or hopeless: not at all 3. Trouble falling or staying asleep, or sleeping too much: not at all 4. Feeling tired or having little energy: not at all 5. Poor appetite or overeating: not at all 6. Feeling bad about yourself - or that you are a failure or have let yourself or your family down: not at all 7. Trouble concentrating on things, such as reading the newspaper or watching television: not at all 8. Moving or speaking so slowly that other people could have noticed. Or the opposite - being so fidgety or restless that you have been moving around a lot more than usual: not at all 9. Thoughts that you would be better off or of hurting yourself in some way: not at all Total score: 0 Depression Screening Interpretation: Negative Depression Screening Done: Yes 30485 - PHQ-9 Billing: Yes Source: Developed by Drs. Kendrick Mari, Mandy Willingham, Jasson Theodore and colleagues, with an educational douglas from [employer]. Thrive Questionnaire Date Thrive assessed: 09/27/24 I am a: Patient What is your living situation today?: I have a steady place to live Within the past 12 months, did the food you bought not last and you didn't have the money to get more?: Never true Within the past 12 months, did you worry whether your food would run out before you got money to buy more?: Never true Do you have trouble paying for medicines?: No Do you have trouble getting transportation to medical appointments?: No Do you have trouble paying your heating and electricity bill?: No Do you have trouble taking care of your child, family member or friend?: No Do you have trouble with day-to-day activities such as bathing, preparing meals, shopping, managing finances, etc.?: No Are you currently unemployed and looking for a job?: No Are you interested in more education?: No Please select the resources that you would like help with: None Currently or been in a relationship where the following occur: No concerns reported THRIVE Score: 0 AUDIT C Alcohol Use Questionnaire (AUDIT-C) 1. How often do you have a drink containing alcohol?: Never 3. How often do you have six or more drinks on one occasion?: Never Total Score: 0 Score Reviewed/Action Taken: No MARCO-7 AMB Questionnaire MARCO-7 Date MARCO - 7 assessed: 09/27/24 Feeling nervous, anxious, or on edge: 0 = Not at all Not being able to stop or control worryin = Not at all Worrying too much about different things: 0 = Not at all Trouble relaxin = Not at all Being so restless that it is hard to sit still: 0 = Not at all Becoming easily annoyed or irritable: 0 = Not at all Feeling afraid as if something awful might happen: 0 = Not at all Total MARCO-7 score (0-4 normal; 5-9 mild; 10-14 moderate; 15-21 severe): 0 Source: Developed by Drs. Kendrick Mari, Mandy Willingham, Jasson Theodore and colleagues, with an educational douglas from [employer]. MARCO-7 Assessment Billing MARCO-7 Assessment Tool: MARCO-7 Assessment 96370 Review of Systems Const All systems reviewed & are unremarkable except as noted in HPI and below Card Denies chest pain at rest, Denies chest pain with activity, Denies edema, Denies irregular heart rhythm, Denies claudication, Denies dyspnea, Denies dyspnea on exertion, Denies orthopnea, Denies paroxysmal nocturnal dyspnea and Denies slow heart rate Resp Denies cough, Denies dyspnea and Denies dyspnea on exertion GI Denies abdominal pain, Denies change in bowel habits, Denies excessive flatus, Denies nausea and Denies vomiting Physical exam (Primary Care) Vital Signs: Last Vital Signs Pulse 69 04/08/25 10:46 BP 140/74 H 04/08/25 10:46 Pulse Ox 95 04/08/25 10:46 Oxygen Delivery Method Room Air 04/08/25 10:46 BMI result Body Mass Index 33.3 BMI Assessment/Plan discussion: High BMI High, discussed plan: lifestyle, weight reduction, dietary and physical activity Tobacco/Smoking Status: Tobacco use Status Tobacco use date assessed 04/08/25 04/08/25 10:52 Patient Tobacco Use Status Never used Tobacco 04/08/25 10:52 e-Cigarette/Vaping Use Never Used 04/08/25 10:52 PHQ-9: PHQ-9 Score PHQ-9: Total score 0 04/08/25 11:05 Depression Screening Interpretation: Negative Thrive Assessment: Date of Thrive Assessment Date Thrive assessed 09/27/24 04/08/25 10:52 Currently or been in a relationship where the following occur: No concerns reported [facility] Head: Yes normal to inspection, Yes normocephalic and Yes atraumatic Ears: external ears normal Eyes General: appearance normal, both eyes and all related structures Eyelids: Yes eyelids normal Conjunctivae: conjunctivae normal Neck Neck: Yes normal visual inspection and Yes supple Resp Effort & Inspection: normal respiratory effort Auscultation: clear to auscultation bilaterally Cardio Jugular venous distension: no JVD Rate: regular rate Rhythm: regular rhythm Heart sounds: S1 normal heart sound present and S2 normal heart sound present GI Inspection: Yes normal to inspection Palpation (GI): Soft to palpation and nontender Auscultation: normal bowel sounds Skin General skin exam: no rashes or lesions noted Neuro General: no focal motor deficits Extrem General: Yes full ROM Psych Appearance: grossly normal Office Procedures Flu Questionnaire Does the patient have a severe egg allergy?: No Does the patient have severe life threatening allergies?: No Does the patient have a fever or illness today?: No Has the patient ever had Guillain-Lanagan Syndrome?: No Has the patient ever had any past reaction to a flu shot?: No Immunizations Fluarix 3200-9600 (PF) 45 mcg (15 mcg x 3)/0.5 mL IM syringe Performing Provider: Hayde aMrvin MD Performing [facility] Administered by: LORI Finn on 04/08/25 11:13 Dose Route Admin Location Dispensed Lot Number Expiration Date [facility] Distillation Operator Helper 0.5 mL IM Left Deltoid 0.5 mL [id number] 12/10/25 18316-351-16 [email or web address] VIS Given Date VIS Provided VIS Publication Date 04/08/25 Single Vaccine 24 Eligibility Eligibility Date Funding Source Not [facility] Eligible 04/08/25 Private pneumoc 20-adam conj-dip cr(PF) 0.5 mL IM syringe Performing Provider: Hayde Marvin MD Performing Location: [facility] [place] [facility] Administered by: LORI Finn on 04/08/25 11:13 Dose Route Admin Location Dispensed Lot Number Expiration Date [place] Distillation Operator Helper 0.5 mL IM Left Deltoid 0.5 mL [id number] 04/12/26 1085-3374-60 [employer] Total Dispensed Waste 0.5 mL 0 % VIS Given Date VIS Provided VIS Publication Date 04/08/25 Single Vaccine 24 Eligibility Eligibility Date Funding Source Not [facility] Eligible 04/08/25 Private Coding Level of Care Code Est Pt Prev Care >65y(48454) Diagnoses Physical exam Z00.00 Additional Codes PHQ-9 - 64962 - PHQ-9 Billing: Yes ([id number]) MARCO-7 Assessment Billing - MARCO-7 Assessment Tool: MARCO-7 Assessment 32672 ([id number]) Time Spent (min) 30 Assessment & Plan Assessment & Plan (1) Physical exam: Code(s): Z00.00 - Encounter for general adult medical examination without abnormal findings Category: Medical Plan Plan 1. Encounter for general adult medical examination without abnormal findings Z00.00 The patient presented for her annual physical exam. The patient agreed to and will receive the influenza vaccine and the PCV-20 pneumococcal vaccine today. Lab work will be ordered for the next follow-up appointment. Orders: Orders Vitamin D 25-OH Total 4 Months E55.9 - Vitamin D deficiency, unspecified IRON PROFILE 4 Months D64.9 - Anemia, unspecified Influenza 4012-6856 Immunization Today Z23 - Encounter for immunization Pneumococcal 20 Immunization Today Z23 - Encounter for immunization Lipid Panel 4 Months E78.5 - Hyperlipidemia, unspecified Complete Blood Count Auto Diff 4 Months D64.9 - Anemia, unspecified Comprehensive [place]. Panel Fast 4 Months I10 - Essential (primary) hypertension Thyroid Stimulating Hormone 4 Months E03.9 - Hypothyroidism, unspecified Medications: Refilled fluticasone propionate 50 mcg/actuation (Flonase Allergy Relief) administer into each nostril 1 spray intranasal DAILY 16 grams 0RF 30 days naproxen 500 mg PO BID PRN 60 tabs 2RF pain 30 days Discontinued fenofibrate Discontinued Reason: Patient Completed Course 54 mg PO DAILY 90 tabs 3RF E78.2 - Mixed hyperlipidemia
--- OUTSIDE RECORDS SUMMARY | 2025-04-08 12:59 | XMS_ITS | Clinical Summary ---
Author Organization [employer] Address [address] [place] [address] Care Team Providers Care Tip Mender Name Role Phone Unavailable Primary Care Provider [...]
--- OUTSIDE RECORDS SUMMARY | 2025-04-08 13:00 | XMS_ITS | Patient Health Record ---
Author Organization [facility] Address [address] [place] [address] Care Team Providers Care Trial Paralegal Name Role Phone Tobias Acosta MD, Bassem Primary Care Provide Kendrick Lynch [phone] Allergies Allergen (clinical drug ingredient) Drug/Non Drug [...] Status W/U Status Risk Notes Problem Constipation (71427019) Constipation (564.00) Active confirmed Problem Gastroesophageal reflux disease (157516570) GERD (gastroesophage al reflux disease) (530.81) Active confirmed Problem Screening for malignant neoplasm of colon (217240273) Screen for colon cancer (V76.51) Active confirmed Plan Of Treatment No Information Insurance Providers Payer Name Payer Address Payer Phone Subscriber Number Group Number Insured Name Patient Relationship to Insured Coverage Start Date Coverage End Date [facility] [address] [place] [phone] [id number] SHABBIR ALLAN Self - patient is the insured Medical (General) History Medical History History ICD Code GERD-Had an EGD in 03/18 with the katarzyna zaragoza of [facility] -no esophagitis Constipation hypertension hyperlipidemia Neg screening colonoscopy in 03/18 except diverticulosis and internal hemorrhoids Denies [place],DM,CVA,Lung disease,renal dise ase Surgical History Surgery Date(Month/Year) ATILIO cholecystectomy
== END 2025-04-08 11:17 | disposition home or self-care (01) ==
LOC: HO.HMCH 10:35
PROVIDERS: PCP Internal Medicine; Visit Provider Internal Medicine
DX: Z00.00 Encounter for general adult medical examination without abnormal findings (principal); Z23 Encounter for immunization

== ENCOUNTER → 2025-04-08 10:33 | Outpatient (BNVA) | payer OTHER, SELFPAY | PROVIDERS: PCP Internal Medicine; Visit Provider Internal Medicine | DX: Z00.00 Encounter for general adult medical examination without abnormal findings (principal); E55.9 Vitamin D deficiency, unspecified; D64.9 Anemia, unspecified; E78.5 Hyperlipidemia, unspecified; I10 Essential (primary) hypertension; E03.9 Hypothyroidism, unspecified; Z23 Encounter for immunization | CPT/HCPCS: 90471; 90472; 90656; 90677; 96127; 99397 ==

== ENCOUNTER 2025-04-15 10:10 | Outpatient (AMB) | payer OTHER, SELFPAY ==
--- NOTE | 2025-04-15 10:16 | MHC.OFFVIS ---
Intake Visit Reasons: 6m/PVR Intake Note: Patient is present for 6M/PVR Urology Medication:ESTRADIOL Antibiotic Allergy:CLARITHROMYCIN,SULFA Blood Thinner:NONE Last PVR:188ML'S Todays PVR:87ML'S Street Light Repairer Helper Required: No Street Light Repairer Helper Services: Street Light Repairer Helper Present Street Light Repairer Helper Name: [id number] Keyonna Granados Allergies clarithromycin (CLARITHROMYCIN) Allergy (Intermediate, Verified 04/15/25 10:35) Rash hydrochlorothiazide (HYDROCHLOROTHIAZIDE) Allergy (Intermediate, Verified 04/15/25 10:35) Rash Sulfa (Sulfonamide Antibiotics) Allergy (Intermediate, Verified 04/15/25 10:35) Rash tramadol (TRAMADOL) Allergy (Intermediate, Verified 04/15/25 10:35) Rash, vomiting moexipril (From Univasc) Allergy (Mild, Verified 04/15/25 10:35) lip deviation valsartan (From Diovan) Allergy (Mild, Verified 04/15/25 10:35) Rash amlodipine Adverse Reaction (Severe, Verified 04/15/25 10:35) leg swelling acetaminophen (From Vicodin) Adverse Reaction (Intermediate, Verified 04/15/25 10:35) Vomiting hydrocodone (From Vicodin) Adverse Reaction (Intermediate, Verified 04/15/25 10:35) Vomiting oxycodone (From Percocet) Adverse Reaction (Mild, Verified 04/15/25 10:35) vomiting Medication List - Last Reconciled 04/15/25 by LUL Sanchez-CLEM acetaminophen ER 650 mg PO Q8H PRN 30 days atorvastatin 10 mg PO DAILY blood pressure monitor As directed fluticasone propionate 50 mcg/actuation (Flonase Allergy Relief) 1 spray intranasal DAILY 30 days levothyroxine 50 mcg PO DAILY 90 days losartan 100 mg PO DAILY jfyohguwyhay-tbxh-otnyc acid 18-400 mg-mcg (Centrum) 1 tab PO DAILY naproxen 500 mg PO BID PRN 30 days pantoprazole 40 mg PO DAILY 90 days [pillow- neck As directed] polyethylene glycol 3350 (Miralax) 17 grams PO DAILY PRN 90 days verapamil ER 240 mg PO DAILY 90 days HPI Comments Details: Vidhi is a very pleasant 79-year-old Pashto-speaking female patient of Dr. Cowart. She has a past medical history of GERD, anemia, polyarthralgia, hyperlipidemia, vertigo, hypertension, hypothyroidism, and chronic pain. She presents to the office today for follow-up of her recurrent urinary tract infections. In discussion with the patient today she reports to be doing and feeling well. She denies having had any bothersome urinary issues or concerns since her last office visit here. Previous workup has included a retroperitoneal ultrasound noting 07/07 bilateral kidneys with no hydronephrosis, renal calculi or renal masses noted. The urinary bladder is unremarkable. Pre void bladder volume is approximately 240 mL. Postvoid bladder volume is approximately 10 mL. Bilateral ureteral jets are visualized. In office urinalysis results reviewed with the patient today. PVR 87mL. When asked she does report a longstanding history of constipation. We discussed at length potential causes of recurrent urinary tract infections. She had been prescribed Estrace cream for suppression therapy for recurrent urinary tract infections however she reports she does not feel she needs to utilize this. We discussed decrease since last office visit. We discussed correlation of incomplete bladder emptying and recurrent urinary tract infections. When asked she denies urgency, urinary frequency, incontinence, nocturia, hematuria, dysuria, foul smelling urine, changes to urinary stream, flank pain, fever, and or chills. She is happy with her current voiding parameters. She otherwise offers no other issues or concerns at this time. [facility] Medical History Cataracts, bilateral Chronic GERD Postmenopausal Numbness and tingling Anemia Productive cough Polyarthralgia Mixed hyperlipidemia Vertigo Essential hypertension Hypothyroidism Right hip pain Left hip pain Hypertension Chronic pain Surgical History Hx of eye surgery Status post laser ablation of incompetent vein History of esophagogastroduodenoscopy (EGD) Hx of colonoscopy History of total abdominal hysterectomy and bilateral salpingo-oophorectomy History of cholecystectomy Family History Father Alzheimer disease Mother Stroke Other No family history of cancer Social History Household Members: None Housing: Apartment Are you a primary post acute care registered nurse to a significant other at home: No Do you presently have visiting nurse or other home services: No Alcohol intake: never Patient Tobacco Use Status: Never used Tobacco e-Cigarette/Vaping Use: Never Used Second Hand Smoke Exposure: No service: No Current occupational status: retired Cognitive needs: No Hearing needs: No Vision needs: Yes Review of Systems Const All systems reviewed & are unremarkable except as noted in HPI and below Physical Exam Const General: cooperative, healthy appearing, comfortable, no acute distress, well developed, alert and awake Orientation/consciousness: patient oriented x3 Limitations: language barrier HEENT Head: Yes normal to inspection, Yes normocephalic and Yes atraumatic Ears: hearing grossly normal bilaterally Eyes General: appearance normal, both eyes and all related structures Neck Neck: Yes normal visual inspection and Yes trachea midline Chest Chest palpation & inspection: normal inspection of the chest Resp Effort & Inspection: normal respiratory effort and able to speak in complete sentences Cardio Rate: regular rate GI Inspection: Yes normal to inspection General: Yes no CVA tenderness Back/Spine/Pelvis Back: no CVA tenderness Skin General skin exam: no rashes or lesions noted Neuro General: patient oriented x3 Extrem General: Yes normal to inspection Psych Appearance: grossly normal and well kempt Mental Status: mental status grossly normal Speech and movement: Normal speech and movement present and Clear speech present Affect: normal affect Attitude: cooperative Thought process: Normal thought process present Thought content: Normal thought content present Insight: Fair insight present (Psych) Judgement: Fair judgement present (Psych) Office Procedures Post Void Residual Post Residual Void Post Void Residual (PVR): 87 [id number]-[id number] Void Residual by ultrasound Assessment & Plan Assessment & Plan (1) Incomplete bladder emptying: Code(s): R33.9 - Retention of urine, unspecified Category: Medical (2) Recurrent UTI: Code(s): N39.0 - Urinary tract infection, site not specified Category: Medical Plan In office urinalysis results reviewed with the patient today; as noted above. PVR 86 mL. She currently denies any bothersome urinary issues or concerns. She reports be happy with current voiding parameters. Will continue with surveillance monitoring. We did discuss correlation of incomplete bladder emptying and history of constipation with lower urinary tract symptoms we also discussed causes of incomplete bladder emptying on overall health and well-being. All questions were answered. Follow-up in 6 months with PVR; or sooner with any issues, concerns, and or questions. Orders: Orders AMB Urinalysis Automated Today Z13.9 - Encounter for screening, unspecified Patient Instructions: The patient had an opportunity to ask questions regarding the treatment plan. All questions were answered. Physical exam, labs, and imaging were discussed and reviewed in detail. As well as risks, benefits, and discussion of treatment choices. No major barriers to understanding were identified. The patient expressed understanding and agreement with the above treatment plan. The patient was made aware they should contact our office by phone for worsening of their current condition, the appearance of new symptoms, or with any questions or concerns. Compliance is encouraged with any medications and follow up testing that is ordered. It is a privilege to be allowed the opportunity to participate in? your urological care.? Again, if you have any questions or concerns If you have any questions or concerns please do not hesitate to contact me. The office is [phone]. This note is constructed using voice recognition software. While every effort has been made to ensure accuracy bottom finisher errors may have been included. Yours sincerely, MAGNO Sanchez Coding Level of Care Code Est Pt Level 3 (59557) Complex EM visit Add On G2211 Diagnoses Incomplete bladder emptying R33.9 Recurrent UTI N39.0 CPT Codes Post Residual Void - PVR CPT Code: 43086-Csaj Void Residual by ultrasound ([id number])
--- OUTSIDE RECORDS SUMMARY | 2025-04-15 12:09 | XMS_ITS | Clinical Summary ---
Author Organization [employer] Address [address] [place] [address] Care Team Providers Care Cop Breaker Name Role Phone Unavailable Primary Care Provider [...]
--- OUTSIDE RECORDS SUMMARY | 2025-04-15 12:09 | XMS_ITS | Patient Health Record ---
Author Organization [facility] Address [address] [place] [address] Care Team Providers Care Developmental Specialist Name Role Phone Tobias Acosta MD, Bassem Primary Care Provide Kendrick Lynch [phone] Allergies Allergen (clinical drug ingredient) Drug/Non Drug Allergy documented on EMR Reaction Allergy Type Onset Date Status acetaminophen / oxycodone Percocet Unknown Drug Allergy Active peginterferon linnette-2a Pegasys Unknown Drug Allergy Active valsartan Diovan Unknown Drug Allergy Active sulfamethoxazole / trimethoprim Bactrim Unknown Drug Allergy Active hydrochlorothiazide hctz (uncoded) Unknown Allergy Active unibox (uncoded) Unknown Allergy Act claude Sulfa Unknown Drug Allergy Active Vicodin Unknown Drug Allergy Active Reason For Referral [...] Status W/U Status Risk Notes Problem Constipation (41616476) Constipation (564.00) Active confirmed Problem Gastroesophageal reflux disease (027607082) GERD (gastroesophage al reflux disease) (530.81) Active confirmed Problem Screening for malignant neoplasm of colon (774252415) Screen for colon cancer (V76.51) Active confirmed Plan Of Treatment No Information Insurance Providers Payer Name Payer Address Payer Phone Subscriber Number Group Number Insured Name Patient Relationship to Insured Coverage Start Date Coverage End Date [facility] [address] [place] [phone] [id number] SHABBIR ALLAN Self - patient is the insured Medical (General) History Medical History History ICD Code GERD-Had an EGD in 03/18 with the katarzyna zaragoza of [facility] -no esophagitis Constipation hypertension hyperlipidemia Neg screening colonoscopy in 03/18 except diverticulosis and internal hemorrhoids Denies ND,DM,CVA,Lung disease,renal dise ase Surgical History Surgery Date(Month/Year) ATILIO cholecystectomy
== END 2025-04-15 10:44 | disposition home or self-care (01) ==
LOC: HO.HUSH 10:11
PROVIDERS: PCP Internal Medicine; Visit Provider Nurse Practitioner Family
DX: R33.9 Retention of urine, unspecified (principal); N39.0 Urinary tract infection, site not specified; Z13.9 Encounter for screening, unspecified
CPT/HCPCS: 99213; G2211

== ENCOUNTER → 2025-04-15 10:10 | Outpatient (BNVA) | payer OTHER, SELFPAY | PROVIDERS: PCP Internal Medicine; Visit Provider Nurse Practitioner Family | DX: R39.14 Feeling of incomplete bladder emptying (principal); Z87.440 Personal history of urinary (tract) infections; R33.9 Retention of urine, unspecified | CPT/HCPCS: 51798; 81003; 99212 ==

== ENCOUNTER 2025-04-25 09:52 | Outpatient (AMB) | payer OTHER, SELFPAY ==
[2025-04-25 10:24] VITALS: BP 123/66; BMI 33.3
--- NOTE | 2025-04-25 10:24 | MHC.OFFVIS ---
Vital Signs 04/25/25 10:24 Height 4 ft 11 in Weight 165 lb BMI 33.3 BP 123/66 Blood Pressure Location Lt brachial Position Sitting Intake Visit Reasons: 6 mo f/u Constipation Allergies clarithromycin (CLARITHROMYCIN) Allergy (Intermediate, Verified 04/25/25 10:24) Rash hydrochlorothiazide (HYDROCHLOROTHIAZIDE) Allergy (Intermediate, Verified 04/25/25 10:24) Rash Sulfa (Sulfonamide Antibiotics) Allergy (Intermediate, Verified 04/25/25 10:24) Rash tramadol (TRAMADOL) Allergy (Intermediate, Verified 04/25/25 10:24) Rash, vomiting moexipril (From Univasc) Allergy (Mild, Verified 04/25/25 10:24) lip deviation valsartan (From Diovan) Allergy (Mild, Verified 04/25/25 10:24) Rash amlodipine Adverse Reaction (Severe, Verified 04/25/25 10:24) leg swelling acetaminophen (From Vicodin) Adverse Reaction (Intermediate, Verified 04/25/25 10:24) Vomiting hydrocodone (From Vicodin) Adverse Reaction (Intermediate, Verified 04/25/25 10:24) Vomiting oxycodone (From Percocet) Adverse Reaction (Mild, Verified 04/25/25 10:24) vomiting Medication List - Last Reconciled 04/25/25 by Nazia Vásquez MD acetaminophen ER 650 mg PO Q8H PRN 30 days atorvastatin 10 mg PO DAILY blood pressure monitor As directed fluticasone propionate 50 mcg/actuation (Flonase Allergy Relief) 1 spray intranasal DAILY 30 days levothyroxine 50 mcg PO DAILY 90 days losartan 100 mg PO DAILY xlrvuyjwsaxu-ghga-kwuzh acid 18-400 mg-mcg (Centrum) 1 tab PO DAILY naproxen 500 mg PO BID PRN 30 days pantoprazole 40 mg PO DAILY 90 days [pillow- neck As directed] polyethylene glycol 3350 (Miralax) 17 grams PO DAILY PRN 90 days verapamil ER 240 mg PO DAILY 90 days HPI HPI 6 mo f/u Constipation: Details: GI CLINIC VISIT FOR THIS 79-YEAR-OLD NIGERIEN-SPEAKING FEMALE FOR FOLLOW-UP OF EPIGASTRIC PAIN, GERD AND CONSTIPATION PMX:?Arthritis, Hypertension, Hyperlipidemia, Heart problems, Diverticulosis, Gastritis, thyroid disease PSHX: ATILIO with BSO, cholecystectomy lap ?TODAY'S VISIT [facility] [place] [place] [employer] [facility], Janeth Patient complains abdominal pain for 1-2 weeks and bloating, I am always constipated and MIralax is not helping Notes pain even after drinking water Had a BM yesterday - hard stool with straining PAST VISITS: do BM when she is really gassy and constipation when she is not gassy I take a powder and it helps me go to the bathroom Takes the powder almost daily. Once it starts working, then she stops taking it. Doing so so Intermittent GERD symptoms - once a week. Takes Mylanta prn which relieves heartburn and also makes her have a BM Takes Miralax prn for constipation and denies ongoing symptoms Has a BM 2-3 times a week. ?PAST VISIT: Lab results were reviewed with the patient. Denies abdominal pain or heartburn. Continues to have constipation. Has a BM sometimes twice a day and sometimes every other day. She takes medications for constipation as needed. Abd US results were reviewed with the patient. ? Denies any abd pain at present. Had abdominal pain a week ago after eating a buffet - took TUMS and pain went away. ?Abd pain is much better and sometimes she gets it and sometimes she does not. ? Can be once a week to once a month and can last all day or a few hrs. ? Notes a little bit of heartburn - 2-3 times a week - sometimes day or night. ? Avoids spicy foods. ? Constipation improved with medications - Senna with colace. ? EGD and Colonoscopy and bx results were reviewed with the patient. ? Continues to have pain in her throat. ? Called her PCP and was prescribed PCN and the sore throat is getting better. ? Taking Senna three times a week alternating with Miralax and continuing to have constipation - advised to take Senna daily and take Miralax every other day. ? Pain is intermittent 8/10 in intensity and feels like a pressure. ? Pain radiates to the back and lower extremities. ? Pain is constant and varies in intensity. ? Unable to identify any precipitating factors. ? Thinks its her thyroid medication which is causing the pain. ? Pain gets a little better after a BM or passing gas. ? Notes chills and denies fever, ? Complains of decreased appetite and weight loss of 7 lbs since 03/01. ? Has been eating less and notes heartburn, early satiety, nausea and occasional vomiting, gas and bloating. ? Vomiting can be bilious. ? Denies dysphagia. ? Patient denies change in bowel habits, black stools or rectal bleeding. ? Chronic constipation and has a BM every other day if she takes medication for constipation ? Denies past problems with anesthesia or sleep apnea. ? Snores loudly. ? Denies major heart or lung problems ? Denies use of NSAIDS or blood thinners. STOPPED TAKING PLAVIX A YEAR AGO ? FAMILY HISTORY: Denies known FH of colon polyps, colon cancer or GI malignancy [facility] LABS:?07/08/19 REVIEWED NORMAL CBC WITH PLATELET COUNT OF 137, INR OF 1, ? NORMAL LFTS MILD INCREASE IN BILIRUBIN OF 1.4 ? VITAMIN B12 WAS 168 AND 2012. ?IMAGING STUDIES: 09/15/20 ABDOMINAL ULTRASOUND SHOWED:? LIVER: The liver is normal in size. The liver contour is normal. There is diffuse mildly increased liver parenchymal echogenicity, consistent with hepatic steatosis.? No focal hepatic lesion. There is no intrahepatic biliary duct dilatation seen. GALLBLADDER: Surgically absent. COMMON BILE DUCT: Prominent in caliber measuring 1.0 cm in diameter. This can be seen in the postcholecystectomy setting. RIGHT KIDNEY: Parapelvic cysts versus renal pelvic fullness. No hydronephrosis or renal calculi. The kidney measures 9.6 cm in maximum dimension. LEFT KIDNEY: Parapelvic cysts are present. No hydronephrosis or renal calculi. The kidney measures 9.7 cm in maximum dimension. SPLEEN: Normal. The spleen measures 9.4 cm in maximum dimension. ?06/22/[address] SCAN SHOWED: ? IMPRESSION: ? Diverticulosis. No evidence of diverticulitis. Bilateral renal peripelvic cysts ?05/01 UGI SHOWED: ? There is a small hiatal hernia with moderate gastroesophageal reflux into the upper esophagus. ? Otherwise, the course, caliber and peristalsis of stomach, duodenal ? bulb and the sweep is normal. The mucosal pattern of stomach, duodenal ? bulb and CBD is normal except for a small round filling defect in the ? third segment duodenum on several last images.. Question prominent ? Eboni's gland, mass or polyp. Incidental note is made of previous cholecystectomy. ?ENDOSCOPIC STUDIES: 09/07/19 EGD AND COLONOSCOPY SHOWED: ? ESOPHAGUS: Small hiatus hernia and focal mild esophagitis STOMACH: Gastritis and gastric polyps ? Colonoscopy Findings: ? No polyps were detected ? Moderate to severe diverticulosis seen in the left colon ? Small hemorrhoids on retroflexed exam. ? Plan: ? Await pathology results ? Continue present medications ? Repeat Colonoscopy in 10 years if pt remains in stable health. ? Above findings were reviewed with the patient and GERD and diverticulosis handouts ? were provided. ? A. Small bowel, biopsy: Small intestinal mucosa within normal limits. ? B. Stomach, biopsy: Antral-type mucosa with moderate chronic inactive inflammation; no Helicobacter organisms seen. ? C. Stomach polyp: Fundic gland polyp with background mild chronic inactive inflammation; no Helicobacter organism seen PFSH Medical History Cataracts, bilateral Chronic GERD Postmenopausal Numbness and tingling Anemia Productive cough Polyarthralgia Mixed hyperlipidemia Vertigo Essential hypertension Hypothyroidism Right hip pain Left hip pain Hypertension Chronic pain Surgical History Hx of eye surgery Status post laser ablation of incompetent vein History of esophagogastroduodenoscopy (EGD) Hx of colonoscopy History of total abdominal hysterectomy and bilateral salpingo-oophorectomy History of cholecystectomy Family History Father Alzheimer disease Mother Stroke Other No family history of cancer Social History Household Members: None Housing: Apartment Are you a primary home health care case manager to a significant other at home: No Do you presently have visiting nurse or other home services: No Alcohol intake: never Patient Tobacco Use Status: Never used Tobacco e-Cigarette/Vaping Use: Never Used Second Hand Smoke Exposure: No service: No Current occupational status: retired Cognitive needs: No Hearing needs: No Vision needs: Yes Review of Systems Const All systems reviewed & are unremarkable except as noted in HPI and below Physical Exam Vital Signs: Last Vital Signs BP 123/66 04/25/25 10:24 BMI result Body Mass Index 33.3 Const General: healthy appearing and no acute distress Nutritional Appearance: obese Orientation/consciousness: patient oriented x3 Limitations: language barrier HEENT Head: Yes normal to inspection Ears: hearing grossly normal bilaterally Eyes Sclerae: sclerae normal Pupils: Equal, round and reactive pupils present Neck Neck: Yes normal visual inspection Chest Chest palpation & inspection: normal inspection of the chest Resp Effort & Inspection: normal respiratory effort Auscultation: clear to auscultation bilaterally Cardio Palpation: normal PMI Rate: regular rate Rhythm: regular rhythm Heart sounds: S1 normal heart sound present, S2 normal heart sound present and no murmurs GI Palpation (GI): Soft to palpation, nontender and No hepatosplenomegaly present Auscultation: normal bowel sounds Rectal Exam - Female: deferred Skin General skin exam: no rashes or lesions noted Neuro General: patient oriented x3, gait normal and moves all extremities Cranial nerves: Yes Equal, round and reactive pupils present Psych Appearance: grossly normal Mental Status: mental status grossly normal Assessment & Plan Assessment & Plan (1) Chronic GERD: Code(s): K21.9 - Gastro-esophageal reflux disease without esophagitis Category: Medical (2) Chronic constipation: Comment: Continue Miralax prn Code(s): K59.09 - Other constipation Category: Medical (3) NAFL (nonalcoholic fatty liver): Code(s): K76.0 - Fatty (change of) liver, not elsewhere classified Category: Medical (4) Colon cancer screening: Comment: 08/2019 No polyps were detected on colonoscopy. discontinue screening colonoscopies given advanced age. Code(s): Z12.11 - Encounter for screening for malignant neoplasm of colon Category: Medical (5) Abdominal bloating: Code(s): R14.0 - Abdominal distension (gaseous) Category: Medical (6) Upper abdominal pain: Code(s): R10.10 - Upper abdominal pain, unspecified Category: Medical (7) Cirrhosis: Comment: Liver fibrosis test showed early cirrhosis Code(s): K74.60 - Unspecified cirrhosis of liver Category: Medical Plan 79 year old Pakistani-speaking female with Arthritis, Hypertension, Hyperlipidemia, Heart problems, Diverticulosis, Gastritis seen for evaluation of abdominal pain with bloating and chronic constipation. Upper GI showed mild reflux and a small round filling defect in the third segment duodenum on several last images raising concern for a polyp, mass or prominent Eboni's gland. Patient was advised to start famotidine for GERD and abdominal pain and use senna for constipation. 08/30 EGD showed a small hiatal hernia with focal esophagitis, gastritis and multiple hyperplastic gastric polyps. No nodule or polyp was visualized in the duodenum. 09/2020 Abd US showed?mild hepatic steatosis and parapelvic renal cysts?(she is > 20 yrs status post lap cathleen). 07/14/23 Intermittent GERD symptoms. Takes Miralax prn for constipation which is helpful and she was advised to take it daily to every other day. Has a BM 2-3 times a week. 01/26/24 US with Elastography (fatty liver on past US and low platelets - (137 to 173) showed: 1. Hepatic steatosis. 2. Elastography: Liver elastography measurements are consistent with a minimal risk for clinically significant liver fibrosis (METAVIR Stage F0-F1). 05/31/24 Intermittent GERD symptoms - once a week. Takes Mylanta prn which relieves heartburn and also makes her have a BM Takes Miralax prn for constipation and denies ongoing symptoms Has a BM 2-3 times a week. Pt advised to have labs checked for evaluation of chronic liver disease - showed fibrosis stage F0-F1 indicating early cirrhosis 11/08/24 Pt advised to continue Miralax daily for constipation. Pt has fatty liver with normal LFTs - advised to continue to work on loosing weight - 5 lbs this year. 04/25/25 Pt advised to schedule an Abd US - epigastric pain and FU of cirrhosis Start Linzess 72 mcg daily constipation and continue MiraLax at bedtime. Start Probiotics once a day - if not covered by insurance to take yogurt with antibiotics daily FU in 3 months Orders: Orders US abdomen complete Today K76.0 - Fatty (change of) liver, not elsewhere classified, R10.10 - Upper abdominal pain, unspecified Medications: New linaclotide (Linzess) 72 mcg PO QAM 30 caps 3RF 30 days K59.09 - Other constipation Lactobacillus rhamnosus GG (Culturelle) 1 cap PO DAILY 90 caps 1RF 90 days R14.0 - Abdominal distension (gaseous) Patient Instructions: Por favor tome 1 capsula de probiotico todos los carranza Si el seguro medico no cubre el probiotico, coma 1 tasa de yogurt Vaishali al nano (Urdu Yogurt) Coding Level of Care Code Est Pt Level 4 (58858) Complex EM visit Add On G2211 Diagnoses Chronic GERD K21.9 Chronic constipation K59.09 NAFL (nonalcoholic fatty liver) K76.0 Colon cancer screening Z12.11 Abdominal bloating R14.0 Upper abdominal pain R10.10 Cirrhosis K74.60 Time Spent (min) 20
--- OUTSIDE RECORDS SUMMARY | 2025-04-25 11:41 | XMS_ITS | Patient Health Record ---
Author Organization [facility] Address [address] [place] [address] Care Team Providers Care Case Management Social Worker Name Role Phone Tobias Acosta MD, Bassem Primary Care Provide Kendrick Lynch [phone] Allergies Allergen (clinical drug ingredient) Drug/Non Drug Allergy documented on EMR Reaction Allergy Type Onset Date Status peginterferon linnette-2a Pegasys Unknown Drug Allergy Active valsartan Diovan Unknown Drug Allergy Active sulfamethoxazole / trimethoprim Bactrim Unknown Drug Allergy Active hydrochlorothiazide hctz (uncoded) Unknown Allergy Active unibox (uncoded) Unknown Allergy Act claude Sulfa Unknown Drug Allergy Active Vicodin Unknown Drug Allergy Active acetaminophen / oxycodone Percocet Unknown Drug Allergy Active Reason For Referral [...] Status W/U Status Risk Notes Problem Constipation (59306807) Constipation (564.00) Active confirmed Problem Gastroesophageal reflux disease (748073817) GERD (gastroesophage al reflux disease) (530.81) Active confirmed Problem Screening for malignant neoplasm of colon (139184786) Screen for colon cancer (V76.51) Active confirmed Plan Of Treatment No Information Insurance Providers Payer Name Payer Address Payer Phone Subscriber Number Group Number Insured Name Patient Relationship to Insured Coverage Start Date Coverage End Date [facility] [address] [place] [phone] [id number] SHABBIR ALLAN Self - patient is the insured Medical (General) History Medical History History ICD Code GERD-Had an EGD in 03/18 with the [facility]ago[facility] -no esophagitis Constipation hypertension hyperlipidemia Neg screening colonoscopy in 03/18 except diverticulosis and internal hemorrhoids Denies MD,DM,CVA,Lung disease,renal dise ase Surgical History Surgery Date(Month/Year) ATILIO cholecystectomy
--- OUTSIDE RECORDS SUMMARY | 2025-04-25 11:41 | XMS_ITS | Clinical Summary ---
Author Organization [employer] Address [address] [place] [address] Care Team Providers Care Roving Teller Name Role Phone Unavailable Primary Care Provider [...]
== END 2025-04-25 11:07 | disposition home or self-care (01) ==
LOC: HO.HGI 09:53
PROVIDERS: PCP Internal Medicine; Visit Provider Internal Medicine Gastroenterology
DX: K21.9 Gastro-esophageal reflux disease without esophagitis (principal); K59.09 Other constipation; R10.13 Epigastric pain; K76.0 Fatty (change of) liver, not elsewhere classified; R14.0 Abdominal distension (gaseous); K74.60 Unspecified cirrhosis of liver
CPT/HCPCS: 99214; G2211

== ENCOUNTER → 2025-04-25 09:52 | Outpatient (BNVA) | payer OTHER, SELFPAY | PROVIDERS: PCP Internal Medicine; Visit Provider Internal Medicine Gastroenterology | DX: K21.9 Gastro-esophageal reflux disease without esophagitis (principal); K59.09 Other constipation; K76.0 Fatty (change of) liver, not elsewhere classified; R14.0 Abdominal distension (gaseous); R10.13 Epigastric pain; K74.60 Unspecified cirrhosis of liver; Z12.11 Encounter for screening for malignant neoplasm of colon | CPT/HCPCS: 99212 ==